=== PATIENT | female | born 1940 | race Caucasian/White ===

== ENCOUNTER → 2017-01-09 | Outpatient (CLI) | payer MEDICARE, BC ==
--- NOTE | 2017-01-09 11:06 | US ---
EXAMINATION TYPE: US thyroid st tissue head/neck DATE OF EXAM: 01/09/2017 10:23 AM COMPARISON: prior us in pacs CLINICAL HISTORY: E04.1 Thyroid Nodule. on thyroid meds x yrs GLAND SIZE: Right Lobe: 5.4 x 2.1 x 2.3 cm Overall Parenchyma: heterogenous Left Lobe: 2.8 x 1.1 x 0.9 cm Overall Parenchyma: homogeneous Isthmus Thickness: 0.7 cm NODULES RIGHT: # of nodules measured on right: 4 1. 0.8 x 0.5 x 0.7cm hypoechoic, solid nodule at the upper posterior pole with well defined margins . This nodule is wider than tall and shows no intranodular vascularity. Prior size: not measured on prior 2. 1.5 x 0.8 x 1.2cm hypoechoic solid nodule at the anterior mid to upper pole with well-defined ma rgins. This nodule is wider than tall and shows some intranodular vascularity. Prior size: 1.0 x 0.7 x 1.1 cm 3. 0.9 x 0.6 x 0.8 cm hypoechoic solid nodule at the mid anterior pole with well-defined margins. Th is nodule is wider than tall and shows no intranodular vascularity. Prior size: not measured on prior 4. 1.2 x 0.9 x 1.1 cm hypoechoic solid nodule at the lower pole with poorly defined margins. This no dule is wider than tall and shows some intranodular vascularity. Prior size: 1.1 x 0.7 x 0.8 cm LEFT: # of nodules measured on left: 0 ISTHMUS: # of nodules measured in the isthmus: 1 1. 0.6 X 0.5 x 0.7 cm hypoechoic solid nodule with a calcified wall at the left isthmus with well- defined margins. This nodule is wider than tall and shows no intranodular vascularity. Prior size: not measured on prior TECHNOLOGIST IMPRESSION: Bilateral neck scanned, no abnormal lymphadenopathy noted. Small left lobe , enlarged heterogeneous rt lobe with multiple nodules. There is redemonstration of slightly enlarged right thyroid lobe and small left thyroid lobe which raysa th remain heterogeneous with scattered nodules. Some nodules marked by technologist were not clearly seen on prior. No new greater than 1 cm solid or cystic nodules are noted. IMPRESSION: Heterogeneous thyroid with multiple nodules redemonstrated, larger nodules are stable in size and adelfo earance, no new greater than 1 cm suspicious solid or cystic nodules are seen.
== END | disposition home or self-care (01) ==
LOC: RADUSWWP 09:59
PROVIDERS: ATTEND Otolaryngology
DX: E04.2 Nontoxic multinodular goiter (principal)
CPT/HCPCS: 76536

== ENCOUNTER 2017-03-19 10:32 | Observation (INO) | payer MEDICARE, BC ==
[2017-03-19] MEDS ORDERED: SODIUM CHLORIDE 0.9% 1,000 ML IV STA (10:38)
[2017-03-19] MEDS ORDERED: SODIUM CHLORIDE 0.9% 500 ML IV STA (10:38)
--- NOTE | 2017-03-19 10:46 | ED ---
General Adult HPI - General Chief complaint: Chest Pain Stated complaint: Chest/Back Pain Time Seen by Provider: 03/19/17 10:37 Source: patient, RN notes reviewed, old records reviewed Mode of arrival: ambulatory Limitations: no limitations - History of Present Illness Initial comments: This is a 76-year-old female here with chest pain. Patient is chest pain. Significant history of lung cancer, chest came back pain have I cholesterol. Shortness of breath no nausea vomiting no fevers. No travel history or sick contacts. No history of DVT. No history of PE. Patient has huge history of multiple recent surgery - Related Data Home Medications Medication Instructions Recorded Confirmed Atorvastatin [Lipitor] 5 mg PO HS 10/18/14 03/19/17 Enalapril [Vasotec] 20 mg PO BID 10/18/14 03/19/17 Metoprolol Tartrate [Lopressor] 50 mg PO BID 10/18/14 03/19/17 Cholecalciferol [Vitamin D3] 2,000 unit PO DAILY 12/11/15 03/19/17 Levothyroxine Sodium [Synthroid] 50 mcg PO DAILY 12/11/15 03/19/17 fentaNYL 50MCG/HR PATCH [Duragesic 1 patch TRANSDERM Q3D 08/16/16 03/19/17 50MCG/HR] Allergies Allergy/AdvReac Type Severity Reaction Status Date / Time Iodinated Contrast Media - Allergy Severe Rash/Hives Verified 03/19/17 10:39 Oral and [Iodinated Contrast Media - IV Dye] iodine Allergy Rash/Hives Verified 03/19/17 10:39 pineapple Allergy Unknown Verified 03/19/17 10:39 shellfish derived Allergy Unknown Verified 03/19/17 10:39 Review of Systems ROS Statement: Those systems with pertinent positive or pertinent negative responses have been documented in the HPI. ROS Other: All systems not noted in ROS Statement are negative. Past Medical History Past Medical History: Cancer, Hyperlipidemia, Hypertension, Thyroid Disorder Additional Past Medical History / Comment(s): Breast Cancer History of Any Multi-Drug Resistant Organisms: None Reported Past Surgical History: Bariatric Surgery, Breast Surgery, Cholecystectomy, Hysterectomy Additional Past Surgical History / Comment(s): thyroid Past Anesthesia/Blood Transfusion Reactions: No Reported Reaction Past Psychological History: No Psychological Hx Reported Smoking Status: Former smoker Past Alcohol Use History: None Reported Past Drug Use History: None Reported - Past Family History Mother Family Medical History: No Reported History Sister(s) Additional Family Medical History / Comment(s): hip replacement General Exam Limitations: no limitations General appearance: alert, in no apparent distress Head exam: Present: atraumatic, normocephalic, normal inspection Eye exam: Present: normal appearance, PERRL, EOMI. Absent: scleral icterus, conjunctival injection, periorbital swelling ENT exam: Present: normal exam, mucous membranes moist Neck exam: Present: normal inspection. Absent: tenderness, meningismus, lymphadenopathy Respiratory exam: Present: normal lung sounds bilaterally. Absent: respiratory distress, wheezes, rales, rhonchi, stridor Cardiovascular Exam: Present: regular rate, normal rhythm, normal heart sounds. Absent: systolic murmur, diastolic murmur, rubs, gallop, clicks GI/Abdominal exam: Present: soft, normal bowel sounds. Absent: distended, tenderness, guarding, rebound, rigid Extremities exam: Present: normal inspection, full ROM, normal capillary refill. Absent: tenderness, pedal edema, joint swelling, calf tenderness Back exam: Present: normal inspection Neurological exam: Present: alert, oriented X3, CN II-XII intact Psychiatric exam: Present: normal affect, normal mood Skin exam: Present: warm, dry, intact, normal color. Absent: rash Course Vital Signs 03/19/17 10:35 Temperature 98.1 F Pulse Rate 65 Respiratory 18 Rate Blood Pressure 216/83 O2 Sat by Pulse 98 Oximetry - Reevaluation(s) Reevaluation #1: 03/19/17 14:00 At this point patient remains positive chest pain EKG Findings - EKG Comments: EKG Findings:: EKG shows sinus bradycardia rate of 58, ID 190, QRS 06, QTC 404 Medical Decision Making - Medical Decision Making Surgeries female here for evaluation of chest pain. Patient still remains of anterior chest pain and not feeling well. Patient will be admitted for cardiac observation, initial troponin EKG and CTA of chest negative for acute disease, patient's chest pain was central and radiating to back - Lab Data Result diagrams: 03/19/17 11:20 03/19/17 11:20 Lab Results 03/19/17 03/19/17 03/19/17 Range/Units 11:20 11:20 11:20 WBC 7.3 (3.8-10.6) k/uL RBC 4.54 (3.80-5.40) m/uL Hgb 13.6 (11.4-16.0) gm/dL Hct 39.6 (34.0-46.0) % MCV 87.2 (80.0-100.0) fL MCH 29.9 (25.0-35.0) pg MCHC 34.3 (31.0-37.0) g/dL RDW 12.3 (11.5-15.5) % Plt Count 222 (150-450) k/uL Neutrophils % 64 % Lymphocytes % 24 % Monocytes % 7 % Eosinophils % 2 % Basophils % 0 % Neutrophils # 4.7 (1.3-7.7) k/uL Lymphocytes # 1.8 (1.0-4.8) k/uL Monocytes # 0.5 (0-1.0) k/uL Eosinophils # 0.1 (0-0.7) k/uL Basophils # 0.0 (0-0.2) k/uL PT (9.0-12.0) sec INR (<1.1) APTT (22.0-30.0) sec D-Dimer (<0.60) mg/L FEU Sodium 140 (137-145) mmol/L Potassium 4.6 (3.5-5.1) mmol/L Chloride 103 (98-107) mmol/L Carbon Dioxide 27 (22-30) mmol/L Anion Gap 10 mmol/L BUN 16 (7-17) mg/dL Creatinine 0.60 (0.52-1.04) mg/dL Est GFR (MDRD) Af Amer >60 (>60 ml/min/1.73 sqM) Est GFR (MDRD) Non-Af >60 (>60 ml/min/1.73 sqM) Glucose 123 H (74-99) mg/dL Calcium 9.5 (8.4-10.2) mg/dL Magnesium 2.0 (1.6-2.3) mg/dL Total Bilirubin 0.6 (0.2-1.3) mg/dL AST 27 (14-36) U/L ALT 32 (9-52) U/L Alkaline Phosphatase 49 (38-126) U/L Total Creatine Kinase 67 (30-135) U/L CK-MB (CK-2) 0.6 (0.0-2.4) ng/mL CK-MB (CK-2) Rel Index 0.9 Troponin I <0.012 (0.000-0.034) ng/mL Total Protein 8.0 (6.3-8.2) g/dL Albumin 4.7 (3.5-5.0) g/dL Lipase 108 (23-300) U/L 03/19/17 Range/Units 11:20 WBC (3.8-10.6) k/uL RBC (3.80-5.40) m/uL Hgb (11.4-16.0) gm/dL Hct (34.0-46.0) % MCV (80.0-100.0) fL MCH (25.0-35.0) pg MCHC (31.0-37.0) g/dL RDW (11.5-15.5) % Plt Count (150-450) k/uL Neutrophils % % Lymphocytes % % Monocytes % % Eosinophils % % Basophils % % Neutrophils # (1.3-7.7) k/uL Lymphocytes # (1.0-4.8) k/uL Monocytes # (0-1.0) k/uL Eosinophils # (0-0.7) k/uL Basophils # (0-0.2) k/uL PT 10.5 (9.0-12.0) sec INR 1.0 (<1.1) APTT 21.8 L (22.0-30.0) sec D-Dimer 0.52 (<0.60) mg/L FEU Sodium (137-145) mmol/L Potassium (3.5-5.1) mmol/L Chloride (98-107) mmol/L Carbon Dioxide (22-30) mmol/L Anion Gap mmol/L BUN (7-17) mg/dL Creatinine (0.52-1.04) mg/dL Est GFR (MDRD) Af Amer (>60 ml/min/1.73 sqM) Est GFR (MDRD) Non-Af (>60 ml/min/1.73 sqM) Glucose (74-99) mg/dL Calcium (8.4-10.2) mg/dL Magnesium (1.6-2.3) mg/dL Total Bilirubin (0.2-1.3) mg/dL AST (14-36) U/L ALT (9-52) U/L Alkaline Phosphatase (38-126) U/L Total Creatine Kinase (30-135) U/L CK-MB (CK-2) (0.0-2.4) ng/mL CK-MB (CK-2) Rel Index Troponin I (0.000-0.034) ng/mL Total Protein (6.3-8.2) g/dL Albumin (3.5-5.0) g/dL Lipase (23-300) U/L - Radiology Data Radiology results: report reviewed (Chest x-ray negative for acute disease, CT negative for PE), image reviewed Critical Care Time Critical Care Time: Yes Total Critical Care Time: 31 Disposition Clinical Impression: Unstable angina pectoris, Chest pain Disposition: ADMITTED IP TO THIS [facility] Condition: Fair Instructions: Chest Pain (ED) Referrals: Scott Jerry DO [Primary Care Provider] - 1-2 days
[2017-03-19 11:32] LABS: Basophils % (A) 0 %; CH 30.7; CHCM 35.3; Eosinophils # (A) 0.1 k/uL (0-0.7); Eosinophils % (A) 2 %; HCT 39.6 % (34.0-46.0); HGB 13.6 gm/dL (11.4-16.0); Luc # (Auto) 0.14; Luc % (Auto) 2; Lymphocytes # (A) 1.8 k/uL (1.0-4.8); Lymphocytes % (A) 24 %; MCH 29.9 pg (25.0-35.0); MCHC 34.3 g/dL (31.0-37.0); MCV 87.2 fL (80.0-100.0); Mean Platelet Volume 6.7; Monocytes # (A) 0.5 k/uL (0-1.0); Monocytes % (A) 7 %; Neutrophils # (A) 4.7 k/uL (1.3-7.7); Neutrophils % (A) 64 %; RBC 4.54 m/uL (3.80-5.40); RDW 12.3 % (11.5-15.5); WBC 7.3 k/uL (3.8-10.6); WBC (Perox) 7.43
[2017-03-19 11:46] LABS: ALT 32 U/L (9-52); AST 27 U/L (14-36); Alkaline Phosphatase 49 U/L (38-126); Anion Gap 10 mmol/L; Blood Urea Nitrogen 16 mg/dL (7-17); Calcium 9.5 mg/dL (8.4-10.2); Carbon Dioxide 27 mmol/L (22-30); Chloride 103 mmol/L (98-107); Glucose 123 mg/dL (74-99); Non-African American GFR(MDRD) >60 (>60 ml/min/1.73 sqM); Potassium 4.6 mmol/L (3.5-5.1); Sodium 140 mmol/L (137-145); Total Bilirubin 0.6 mg/dL (0.2-1.3)
--- NOTE | 2017-03-19 11:47 | XR ---
EXAMINATION TYPE: XR chest 2V DATE OF EXAM: 03/19/2017 11:43 AM COMPARISON: Prior chest x-ray and CTA chest December 11, 2015. HISTORY: Chest pain today. TECHNIQUE: Frontal and lateral views of the chest are obtained. FINDINGS: There is no focal air space opacity, pleural effusion, or pneumothorax seen. The cardiac silhouette size remains enlarged. The osseous structures are somewhat demineralized. IMPRESSION: Cardiomegaly without acute pulmonary process.
[2017-03-19 11:58] LABS: Creatine Kinase 67 U/L (30-135)
[2017-03-19 12:05] LABS: Prothrombin Time 10.5 sec (9.0-12.0)
[2017-03-19 12:11] LABS: Creatine Kinase MB 0.6 ng/mL (0.0-2.4); Troponin I <0.012 ng/mL (0.000-0.034)
[2017-03-19 12:20] LABS: Partial Thromboplastin Time 21.8 sec (22.0-30.0)
[2017-03-19] MEDS ORDERED: RX INFO: IV CONTRAST WAS GIVEN 1 EACH MISC MISCELLANE PRN (12:31)
[2017-03-19] MEDS ORDERED: methylPREDNISolone SOD SUCCI 125 MG/2 ML VIAL IV STA (12:38)
[2017-03-19] MEDS ORDERED: diphenhydrAMINE 50 MG/ML 1 ML VIAL IVP STA (12:38)
[2017-03-19] MEDS ORDERED: FAMOTIDINE 20 MG/2 ML VIAL IV STA (12:38)
--- NOTE | 2017-03-19 13:38 | CT ---
EXAMINATION TYPE: CT angio chest DATE OF EXAM: 03/19/2017 1:19 PM COMPARISON: CTA chest December 11, 2015 HISTORY: Chest pain rule out pulmonary embolism CT DLP: 535 mGycm. Automated Exposure Control for Dose Reduction was Utilized. CONTRAST: CTA scan of the thorax is performed with IV Contrast, patient injected with 71 mL of Omnipaque 350, p ulmonary embolism protocol. MIP Images are created on CT scanner and reviewed. FINDINGS: LUNGS: Dependent atelectatic change in bilateral lower lobes is present. There is no concerning nonca lcified parenchymal nodule or mass identified bilaterally. No pleural effusion or pneumothorax is see n. There is 3 mm calcified nodule in right lung base on axial image 87 redemonstrated. MEDIASTINUM: There is suboptimal bolus with equal contrast in right and left heart systems but no con vincing CT evidence for pulmonary embolism. There are no greater than 1 cm noncalcified hilar or med iastinal lymph nodes. There are prominent but calcified right infrahilar lymph nodes redemonstrated. No significand pericardial effusion is seen. Cardiomegaly is redemonstrated. Heterogeneous slightly prominent thyroid isthmus is redemonstrated and stable. Thyroid has been sampled in past. OTHER: Cholecystectomy clips are again seen. The visualized liver is hypodense suggesting fatty infil tration. Some multilevel spurring in thoracic spine is present. IMPRESSION: No CT evidence for pulmonary embolism. No suspicious acute pulmonary process. Evidence of old granulomatous disease. No significant change from prior.
[2017-03-19] MEDS ORDERED: HEPARIN SODIUM,PORCINE 5,000 UNIT/ML 1 ML VIAL IV PRN (13:58)
[2017-03-19] MEDS ORDERED: NITROGLYCERIN SL TABS 0.4 MG TAB SUBLINGUAL PRN (13:58)
[2017-03-19] MEDS ORDERED: HEPARIN SODIUM,PORCINE 5,000 UNIT/ML 1 ML VIAL IV ONE (13:58)
[2017-03-19] MEDS ORDERED: ASPIRIN 81 MG CHEW PO STA (13:58)
[2017-03-19] MEDS ORDERED: SODIUM CHLORIDE 0.9% 1,000 ML IV SCH (14:00)
[2017-03-19] MEDS ORDERED: HEPARIN SODIUM,PORCINE/D5W PMX 25,000 UNIT in DEXTROSE/WATER 1 500ML.BAG IV SCH (14:00)
[2017-03-19] MEDS ORDERED: ACETAMINOPHEN TAB 500 MG TAB PO PRN (16:16)
[2017-03-19] MEDS: LEVOTHYROXINE 50 MCG TAB PO SCH (18:10)
[2017-03-19] MEDS: LISINOPRIL 20 MG TAB PO SCH (18:13)
[2017-03-19] MEDS: METOPROLOL TARTRATE 50 MG TAB PO SCH (18:13)
[2017-03-19 19:19] LABS: Creatine Kinase 60 U/L (30-135)
[2017-03-19 19:33] LABS: Creatine Kinase MB 0.7 ng/mL (0.0-2.4); Troponin I <0.012 ng/mL (0.000-0.034)
[2017-03-19 19:51] VITALS: RESP 16
[2017-03-19 21:38] LABS: Creatine Kinase 60 U/L (30-135)
[2017-03-19 21:51] LABS: Creatine Kinase MB 0.6 ng/mL (0.0-2.4); Troponin I <0.012 ng/mL (0.000-0.034)
[2017-03-20] MEDS: LEVOTHYROXINE 50 MCG TAB PO SCH (06:55)
[2017-03-20] MEDS ORDERED: REGADENOSON 0.4 MG/5 ML SYRINGE IV ONE (08:34)
[2017-03-20] MEDS ORDERED: AMINOPHYLLINE 500 MG/20 ML VIAL IV PRN (08:34)
--- NOTE | 2017-03-20 08:34 | P.CRDCN ---
History of Present Illness Consult date: 03/20/17 History of present illness: This is a 76-year-old female with history of hypertension, hypercholesterolemia and history of previous breast cancer and also thyroid cancer, who is admitted to the hospital with complaints of recurrent chest pains since yesterday. She claims the pains are in the middle of the chest radiating up and down the chest and epigastrium. She denied any acid reflux. There doesn't seem to be any clear-cut relation to exertion. No nausea vomiting or sweating. She did complain of some low back pain. Her EKGs are normal. Her cardiac enzymes are normal. She had a stress test about 5 years ago, which was normal at the time. She had a computed tomography scan of the chest which did not reveal any pulmonary emboli. There does appear to be calcium in the coronary system, especially in the LAD distribution in the midportion. She is given the option of having a cardiac catheterization or a stress test for definitive diagnosis. Patient preferred to have a nuclear stress test. Patient has arthritis and cannot walk. She is going to have a Lexiscan Cardiolite. Review of Systems REVIEW OF SYSTEMS: CONSTITUTIONAL:. Patient is doing well. No complaints of fever or chills EYES: Denies diplopia, blurring of vision EARS, NOSE, MOUTH, THROAT: Denies headaches, denies sore throat. CARDIOVASCULAR: As per HPI RESPIRATORY: Denies shortness of breath, denies cough. GASTROINTESTINAL: Denies change in appetite, denies abdominal pain, denies diarrhea GENITOURINARY: Denies hematuria, denies infections. MUSKULOSKELETAL: Denies pain, denies swelling. Denies any cramps or claudication INTEGUMENTARY: Denies rash, denies eczema. NEUROLOGICAL: Denies focal weakness, or visual disturbance. Denies any dizziness or syncope PSYCHIATRIC: Denies anxiety, denies depression. HEMATOLOGIC/LYMPHATIC: Denies any bleeding, denies enlarged lymph nodes. Patient has history of thyroid cancer and also breast cancer. 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 History of Any Multi-Drug Resistant Organisms: None Reported Past Surgical History: Breast Surgery, Cholecystectomy, Hysterectomy Additional Past Surgical History / Comment(s): Partial thyroidectomy, colonoscopies with benign polypectomy, EGD, 1/2 gastrectomy due to ulcers, L breast mastectomy. Past Anesthesia/Blood Transfusion Reactions: No Reported Reaction Past Psychological History: No Psychological Hx Reported Additional Psychological History / Comment(s): Pt resides alone in a condo. She uses a walker at times. She drives. She is independent. Smoking Status: Former smoker Past Alcohol Use History: None Reported Additional Past Alcohol Use History / Comment(s): Pt smoked from [id number] Past Drug Use History: None Reported - Past Family History Father History Unknown: Yes Additional Family Medical History / Comment(s): Father when pt was 1 yrs old. Mother Family Medical History: Coronary Artery Disease (CAD), Osteoarthritis (OA), Thyroid Disorder Additional Family Medical History / Comment(s): Enlarged heart. Sister(s) Family Medical History: Cancer Additional Family Medical History / Comment(s): Pt had a sister who of breast cancer. Medications and Allergies Home Medications Medication Instructions Recorded Confirmed Type Atorvastatin [Lipitor] 5 mg PO HS 10/18/14 03/19/17 History Enalapril [Vasotec] 20 mg PO BID 10/18/14 03/19/17 History Metoprolol Tartrate [Lopressor] 50 mg PO BID 10/18/14 03/19/17 History Cholecalciferol [Vitamin D3] 2,000 unit PO DAILY 12/11/15 03/19/17 History Levothyroxine Sodium [Synthroid] 50 mcg PO DAILY 12/11/15 03/19/17 History fentaNYL 50MCG/HR PATCH [Duragesic 1 patch TRANSDERM Q3D 08/16/16 03/19/17 History 50MCG/HR] Allergies Allergy/AdvReac Type Severity Reaction Status Date / Time Iodinated Contrast Media - Allergy Severe Rash/Hives Verified 03/19/17 10:39 Oral and [Iodinated Contrast Media - IV Dye] iodine Allergy Rash/Hives Verified 03/19/17 10:39 pineapple Allergy Unknown Verified 03/19/17 10:39 shellfish derived Allergy Unknown Verified 03/19/17 10:39 Physical Exam Vitals: Vital Signs Temp Pulse Pulse Resp BP BP Pulse Ox 03/20/17 04:00 97.7 F 71 16 173/73 97 03/20/17 03:59 67 16 03/19/17 23:56 98.1 F 80 16 175/75 96 03/19/17 23:16 78 16 03/19/17 20:00 78 16 03/19/17 19:51 98.2 F 79 16 164/70 92 L 03/19/17 16:14 167/72 03/19/17 16:00 18 03/19/17 15:08 98.2 F 67 16 202/85 96 03/19/17 14:35 16 03/19/17 14:17 98.1 F 68 18 177/74 97 Intake and Output 03/19/17 03/20/17 03/20/17 22:59 06:59 14:59 Intake Total 358.09 Balance 358.09 Intake: Intake, IV Titration 358.09 Amount Heparin Sodium,Porcine/ 358.09 D5w Pmx 25,000 unit In Dextrose/Water 1 500ml. bag @ 10 UNITS/KG/HR 19. 95 mls/hr IV .Q24H [facility] Rx #:[id number] Other: # Voids 2 2 GENERAL EXAM: Patient is alert and oriented and doesn't appear to be in any acute distress HEENT: Normocephalic. Normal reaction of pupils, equal size, normal range of extraocular motion. No erythema or exudates in the throat. NECK: No masses, no nuchal rigidity. CHEST: No chest wall deformity. LUNGS: Equal air entry with no crackles or wheeze. HEART: S1 and S2 normal with no audible mumurs or gallops. Regular rhythm, femorals equal on both sides.. ABDOMEN: No hepatosplenomegaly, normal bowel sounds, no guarding or rigidity. SKIN: No rashes CENTRAL NERVOUS SYSTEM: No focal deficits. EXTREMITIES: No cyanosis, clubbing or edema. Results 03/20/17 05:38 03/19/17 11:20 Cardiac Enzymes 03/19/17 03/19/17 Range/Units 18:00 20:58 CK-MB (CK-2) 0.7 0.6 (0.0-2.4) ng/mL Troponin I <0.012 <0.012 (0.000-0.034) ng/mL Coagulation 03/19/17 03/20/17 Range/Units 22:31 05:38 APTT 42.8 H >200.0 H* (22.0-30.0) sec Lipids 03/20/17 Range/Units 05:38 Triglycerides 57 (<150) mg/dL Cholesterol 116 (<200) mg/dL HDL Cholesterol 41 (40-60) mg/dL CBC 03/20/17 Range/Units 05:38 Plt Count 168 (150-450) k/uL Current Medications Generic Name Dose Route Start Last Admin Trade Name Freq PRN Reason Stop Dose Admin Acetaminophen 1,000 mg 03/19/17 16:16 03/19/17 16:42 Tylenol Tab PO 1,000 mg Q6HR PRN Administration Fever and/ or mild Pain Aspirin 325 mg 03/20/17 09:00 Aspirin PO DAILY [facility] Atorvastatin Calcium 80 mg 03/20/17 09:00 Lipitor PO DAILY [facility] Fentanyl 1 patch 03/20/17 09:00 Duragesic 50mcg/Hr Patch TRANSDERM Q3D [facility] Heparin Sodium (Porcine) 0 unit 03/19/17 13:58 Heparin IV Q6HR PRN Low PTT Protocol Heparin Sodium/Dextrose 25,000 500 mls @ 19.95 mls/hr 03/19/17 14:00 06:51 unit/ IV Solution IV 0 units/kg/hr .Q24H [facility] 0 mls/hr Protocol Titration 10 UNITS/KG/HR Sodium Chloride 1,000 mls @ 100 mls/hr 03/19/17 14:00 03/19/17 16:44 Saline 0.9% IV Not Given .Q10H [facility] Levothyroxine Sodium 50 mcg 03/19/17 17:15 03/20/17 06:55 Synthroid PO Not Given DAILY@0630 [facility] Lisinopril 40 mg 03/19/17 21:00 03/19/17 18:13 Zestril PO 40 mg BID [facility] Administration Metoprolol Tartrate 50 mg 03/19/17 21:00 03/19/17 18:13 Lopressor PO 50 mg BID [facility] Administration Miscellaneous Information 1 each 03/19/17 12:31 03/19/17 12:42 Rx Info: Iv Contrast Was Given MISCELLANE 03/21/17 12:31 1 each DAILY PRN Administration Per Protocol Nitroglycerin 0.4 mg 03/19/17 13:58 Nitrostat SUBLINGUAL Q5M PRN Chest Pain Intake and Output 03/19/17 03/20/17 03/20/17 22:59 06:59 14:59 Intake Total 358.09 Balance 358.09 Intake: Intake, IV Titration 358.09 Amount Heparin Sodium,Porcine/ 358.09 D5w Pmx 25,000 unit In Dextrose/Water 1 500ml. bag @ 10 UNITS/KG/HR 19. 95 mls/hr IV .Q24H [facility] Rx #:[id number] Other: # Voids 2 2 03/20/17 05:38 EKG Interpretations (text) Sinus rhythm Assessment and Plan (1) Hypertension Status: Acute (2) Chest pain Status: Acute (3) Hypercholesterolemia Status: Acute (4) History of breast cancer Status: Acute (5) History of thyroid cancer Status: Acute Plan: This patient had chest pain with some atypical features. EKGs and cardiac enzymes are negative. Computed tomography scan of the chest did not reveal any pulmonary emboli. There is some calcification noted in LAD distribution. Patient is given the choice of cardiac cath versus nuclear stress test. Patient preferred to have nuclear stress test. Lexiscan Cardilate is being scheduled along with echocardiogram. Further recommendations depend upon the findings on the tests.
[2017-03-20] MEDS ORDERED: ATORVASTATIN 80 MG TAB PO SCH (09:00)
[2017-03-20] MEDS ORDERED: ASPIRIN 325 MG TAB PO SCH (09:00)
--- NOTE | 2017-03-20 09:32 | HP ---
DATE OF ADMISSION: 03/19/2017 PRESENTING COMPLAINT: Chest pain. History of presenting complaint: This is a pleasant 76-year-old patient of Dr. Scott Rice. Patient's chronic stable medical conditions include hypercholesterolemia, hypertension, hypothyroidism. Patient presents with 2 weeks of chest pressure going across her chest, does have episodes of perspiration the same. No more shortness of breath. No dizziness. Feels weak, tired, and rundown all the time. Wants to be in bed. Has very little energy. Patient came in occasionally with diagnosis of unstable angina. Last stress test was 7 years ago. REVIEW OF SYSTEMS: CONSTITUTIONAL: Weak, tired. HEENT: None. RESPIRATORY: None. CARDIOVASCULAR: As above. GASTROINTESTINAL: None. GENITOURINARY: None. MUSCULOSKELETAL: Aches and pains in the joints. Dermatological: None. HEMATOLOGICAL: None. LYMPHATICS: None. PSYCHIATRY: None. NEUROLOGICAL: None. PAST MEDICAL HISTORY: Hyperlipidemia, hypertension, osteoarthritis, hyperthyroid, left breast cancer, mastectomy, peptic ulcer disease, thyroid cancer with partial thyroidectomy, arthritis in the knees, low back pain, nodule in the vocal cord, osteoporosis. PAST SURGICAL HISTORY: Breast surgery, cholecystectomy, hysterectomy, partial thyroidectomy, partial gastrectomy from ulcers, left mastectomy. SOCIAL HISTORY: Patient smoked for 10 years up until 1986. No alcohol. FAMILY HISTORY: Coronary artery disease, osteoarthritis. HOME MEDICATIONS: 1. Fentanyl 50 mcg patch every 3 days. 2. Lopressor 50 mg b.i.d. 3. Synthroid 50 mcg a day. 4. Vasotec 20 mg p.o. b.i.d. 5. Vitamin D3, 2000 units p.o. daily. 6. Lipitor 20 mg q.h.s. ALLERGIES TO IV CONTRAST DYE, ( ) SHELLFISH. On examination, temperature 98.2, pulse 79, respirations 16, blood pressure 150/70, pulse ox 92% on room air. GENERAL APPEARANCE: Well built, BMI 34.5, lying in bed, tired -appearing. EYES: Pupils equal. Conjunctivae normal. HEENT: External appearance of nose and ears normal. Oral cavity normal. NECK: JVD not raised. Mass not palpable. RESPIRATORY: Effort normal. Lungs are clear. CARDIOVASCULAR: First and second sounds normal. No edema. ABDOMEN: Soft, nontender. Liver and spleen not palpable. LYMPHATIC: No lymph nodes palpable in neck or axillae. PSYCHIATRY: Alert and oriented x3. Mood and affect ( ) appearing. NEUROLOGICAL: Pupils equal. Cranial nerves grossly intact. Power and sensation grossly intact. MUSCULOSKELETAL: Evidence of osteoarthritis of multiple joints in the hands and knees. INVESTIGATIONS: White count 10.3, hemoglobin 10.6. Potassium 4.6. BUN and creatinine are normal. Troponin x2 negative. Patient's LDL in November of this year was 103. EKG shows normal sinus rhythm. Heart rate of 58. ASSESSMENT: 1. Unstable angina sounds like on presentation in a patient with risk factors include her age, obesity, hypertension. Patient did have a 2-D echocardiogram in November of this year that showed EF 60-65%. 2. Hypothyroidism. Check if the patient ( ) replaced some of the symptoms could manifest the same. 3. Hyperlipidemia. 4. Essential hypertension, uncontrolled. 5. History of left mastectomy. 6. Primary osteoarthritis multiple joints, including the knees. 7. Obesity; body mass index of 34.1. PLAN: Patient is put on IV heparin, aspirin, Lopressor. Cardiology is consulted. Patient will need a stress test or cardiac catheterization given her presentation. Will also check patient's thyroid status. Care was discussed with the patient in detail. Copy to Dr. Rice.
--- NOTE | 2017-03-20 10:40 | ECHOF ---
Referral Reason:Chest pain and cardiomyopathy MEASUREMENTS -------- HEIGHT: 170.2 cm WEIGHT: 99.8 kg BP: 173/73 RVIDd: 3.5 cm (< 3.3) IVSd: 1.4 cm (0.6 - 1.1) LVIDd: 4.9 cm (3.9 - 5.3) LVPWd: 1.4 cm (0.6 - 1.1) IVSs: 1.8 cm LVIDs: 3.2 cm LVPWs: 1.7 cm LAESV Index (A-L): 17.36 ml/m Ao Diam: 3.2 cm (2.0 - 3.7) AV Cusp: 1.1 cm (1.5 - 2.6) LA Diam: 3.7 cm (2.7 - 3.8) MV E Kennedy: 0.58 m/s MV DecT: 157 ms MV A Kennedy: 0.69 m/s MV E/A Ratio: 0.84 AV maxP.32 mmHg AV meanP.54 mmHg RAP: 5.00 mmHg RVSP: 14.16 mmHg FINDINGS -------- Sinus rhythm. This was a technically adequate study. LV size, wall thickness and systolic function are normal, with an EF greater than 55%. The right ventricle is mildly enlarged. Normal LA size by volume 22+/-6 ml/m2. The right atrium is normal in size. There is mild aortic valve sclerosis. There is trace mitral regurgitation. Trace tricuspid regurgitation present. There is no evidence of pulmonary hypertension. The right ventricular systolic pressure, as measured by Doppler, is 14.16mmHg. Trace/mild (physiologic) pulmonic regurgitation. The aortic root, ascending aorta and aortic arch are normal. There is no pericardial effusion. CONCLUSIONS -------- 1. Sinus rhythm. 2. There is no pericardial effusion. 3. This was a technically adequate study. 4. LV size, wall thickness and systolic function are normal, with an EF greater than 55%. 5. The right ventricle is mildly enlarged. 6. There is mild aortic valve sclerosis. 7. There is trace mitral regurgitation. 8. Trace tricuspid regurgitation present. 9. The right ventricular systolic pressure, as measured by Doppler, is 14.16mmHg. 10. Trace/mild (physiologic) pulmonic regurgitation. GRE TUTOR: Claudia Palma RDCS
[2017-03-20] MEDS: LISINOPRIL 20 MG TAB PO SCH (11:14)
[2017-03-20] MEDS: METOPROLOL TARTRATE 50 MG TAB PO SCH (11:14)
--- NOTE | 2017-03-20 11:15 | EST ---
DATE OF SERVICE: 03/20/2017 AGE: 76Y SEX: F HT: 5'7" WT: 220 lbs. Lexiscan Cardiolite Stress Test *Heart Rate Blood Pressure *Rest: 79 Rest: 193/94 * *Max. Achieved: 100 Maximum BP: 211/81 85% PMHR: - 100% PMHR: - *METS: - INDICATIONS: Chest pain. MEDICATIONS: - CLINICAL INFORMATION: History of chest pain, hypertension, hypercholesterolemia, history of smoking 1/2 pack of cigarettes a day for 10 years. Quit smoking 30 years ago. Resting ECG shows sinus rhythm, rate of 79 beats per minute, NM interval of 0.16, QRS 0.08, nonspecific ST-T wave changes. Utilizing a standard Lexiscan protocol, Lexiscan was given followed by serial EKGs without any chest pain or pressure or ST segment deviations indicative of ischemia in any of the monitoring 12 leads. IMPRESSION: 1. Baseline rhythm is sinus with normal NM interval, normal QRS, with nonspecific ST-T wave changes. 2. Negative Lexiscan Cardiolite study. 3. Nuclear scintigrams to follow from Radiology Department.
--- NOTE | 2017-03-20 11:18 | NM ---
EXAMINATION TYPE: NM stress lexiscan cardiolite DATE OF EXAM: 03/20/2017 11:12 AM COMPARISON: NONE HISTORY: Chest pain TECHNIQUE: After the intravenous administration of 10.25 mCi Tc 99m Sestamibi - Cardiolite resting S PECT images acquired 45 minutes post injection. The patient received 0.4mg Lexiscan, 27.4 mCi Tc 99m Sestamibi - Stress images obtained [address] injection FINDINGS: Review of stress and rest SPECT images demonstrates no distinct perfusion abnormality. Fixed decreas ed perfusion inferior wall may reflect attenuation artifact versus remote insult. Gated analysis alfa ws normal wall motion with an estimated left ventricular ejection fraction of 69 %. IMPRESSION: No scintigraphic evidence for reversible ischemia.
[2017-03-20] MEDS ORDERED: LEVOTHYROXINE 50 MCG TAB PO SCH ×2 (11:30→12:00)
[2017-03-20 12:32] VITALS: BP 152/65; PULSE 80; TEMP 98.4
--- NOTE | 2017-03-21 08:06 | DS ---
DATE OF ADMISSION: 03/19/2017 DATE OF DISCHARGE: 03/20/2017 FINAL DIAGNOSES: 1. Anterior chest wall pain; could be musculoskeletal. 2. Hypothyroidism. 3. Hyperlipidemia. 4. Essential hypertension. 5. History of left mastectomy. 6. Primary osteoarthritis of multiple joints including the knees. 7. Obesity; body mass index of 34.1. HOSPITAL COURSE: This patient presented with chest pain. Troponins were negative. Patient underwent nuclear stress test that was negative. A 2-D echocardiogram showed preserved LV function, no wall motion abnormality Care was discussed with the patient. On exam, lungs are clear. CARDIOVASCULAR: First and second sounds normal. DISCHARGE MEDICATIONS: 1. Vasotec 20 mg b.i.d. 2. Lopressor 50 mg p.o. b.i.d. 3. Vitamin D3, 2000 units p.o. daily. 4. Synthroid 50 mcg p.o. daily. 5. Duragesic 50 mcg patch every 3 days. 6. Aspirin 81 mg daily. 7. Lipitor 40 mg at bedtime. 8. Nitrostat 0.4 sublingual every 5 p.r.n. Follow up with Dr. Scott Rice in 3 days
== END 2017-03-20 15:50 | disposition home or self-care (01) ==
LOC: EC 10:32 → 3OBS 13:58
PROVIDERS: ADMIT Hospitalist; ATTEND Hospitalist
DX: R07.89 Other chest pain (principal); M13.0 Polyarthritis, unspecified; E03.9 Hypothyroidism, unspecified; E66.9 Obesity, unspecified; Z68.34 Body mass index [BMI] 34.0-34.9, adult; E78.00 Pure hypercholesterolemia, unspecified; E78.5 Hyperlipidemia, unspecified; I10 Essential (primary) hypertension; M81.0 Age-related osteoporosis without current pathological fracture; Z79.899 Other long term (current) drug therapy; Z87.891 Personal history of nicotine dependence; Z90.3 Acquired absence of stomach [part of]; Z90.12 Acquired absence of left breast and nipple; Z85.118 Personal history of other malignant neoplasm of bronchus and lung; Z91.041 Radiographic dye allergy status; Z85.850 Personal history of malignant neoplasm of thyroid; M54.5 Low back pain; Z85.3 Personal history of malignant neoplasm of breast; R53.1 Weakness; Z82.49 Family history of ischemic heart disease and other diseases of the circulatory system
CPT/HCPCS: 96361 ×4; 96375 ×5; 96374 ×2; 99291 ×2; 96366 ×2; 96365; 36415; 93005; 93017; 93306; 85379; 84439; 80061; 80053; 84443; 82550; 82553; 83690; 83735; 84484; 85025; 85049; 85610; 85730 ×2; 71020; 71275; 78452; G0378 ×2; A9500; J1200; J1644 ×2; J2930; Q9967; J2785

== ENCOUNTER 2017-05-06 10:02 | Emergency (ER) | payer MEDICARE, BC ==
[2017-05-06 10:11] VITALS: BP 170/67; PULSE 66; RESP 20; TEMP 98.1
--- NOTE | 2017-05-06 11:23 | ED ---
General Adult HPI - General Chief complaint: Extremity Problem,Nontraumatic Stated complaint: Shoulder Pain, Nausea Time Seen by Provider: 05/06/17 10:32 Source: patient, RN notes reviewed, old records reviewed Mode of arrival: ambulatory Limitations: no limitations - History of Present Illness Initial comments: This is a 76-year-old female here for evaluation of right shoulder pain. Patient states pain on and off for about a month. Also increasing over the past week, she has had prior evaluation, no that she has right shoulder palpation without pain control at home. Patient denies rest of breath or chest pain, denies history of DVT. No travel history. No fevers cough or congestion. No traumatic injury - Related Data Home Medications Medication Instructions Recorded Confirmed Enalapril [Vasotec] 20 mg PO BID 10/18/14 05/16/17 Metoprolol Tartrate [Lopressor] 50 mg PO BID 10/18/14 05/16/17 Cholecalciferol [Vitamin D3] 2,000 unit PO DAILY 12/11/15 05/16/17 Levothyroxine Sodium [Synthroid] 50 mcg PO DAILY 12/11/15 05/16/17 fentaNYL 50MCG/HR PATCH [Duragesic 1 patch TRANSDERM Q3D 08/16/16 05/16/17 50MCG/HR] Atorvastatin Calcium [Lipitor] 5 mg PO DAILY 05/06/17 05/16/17 Allergies Allergy/AdvReac Type Severity Reaction Status Date / Time Iodinated Contrast Media - Allergy Severe Rash/Hives Verified 05/16/17 09:58 Oral and [Iodinated Contrast Media - IV Dye] iodine Allergy Rash/Hives Verified 05/16/17 09:58 pineapple Allergy SORE IN Verified 05/16/17 09:58 MOUTH shellfish derived Allergy SEVERE Verified 05/16/17 09:58 VOMITING Review of Systems ROS Statement: Those systems with pertinent positive or pertinent negative responses have been documented in the HPI. ROS Other: All systems not noted in ROS Statement are negative. 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 History of Any Multi-Drug Resistant Organisms: None Reported Past Surgical History: Breast Surgery, Cholecystectomy, Hysterectomy Additional Past Surgical History / Comment(s): Partial thyroidectomy, colonoscopies with benign polypectomy, EGD, 1/2 gastrectomy due to ulcers, L breast mastectomy. Past Anesthesia/Blood Transfusion Reactions: No Reported Reaction Past Psychological History: No Psychological Hx Reported Additional Psychological History / Comment(s): Pt resides alone in a condo. She uses a walker at times. She drives. She is independent. Smoking Status: Former smoker Past Alcohol Use History: None Reported Additional Past Alcohol Use History / Comment(s): Pt smoked from [id number] Past Drug Use History: None Reported - Past Family History Father History Unknown: Yes Additional Family Medical History / Comment(s): Father when pt was 1 yrs old. Mother Family Medical History: Coronary Artery Disease (CAD), Osteoarthritis (OA), Thyroid Disorder Additional Family Medical History / Comment(s): Enlarged heart. Sister(s) Family Medical History: Cancer Additional Family Medical History / Comment(s): Pt had a sister who of breast cancer. General Exam Limitations: no limitations General appearance: alert, in no apparent distress Head exam: Present: atraumatic, normocephalic, normal inspection Eye exam: Present: normal appearance, PERRL, EOMI. Absent: scleral icterus, conjunctival injection, periorbital swelling ENT exam: Present: normal exam, mucous membranes moist Neck exam: Present: normal inspection. Absent: tenderness, meningismus, lymphadenopathy Respiratory exam: Present: normal lung sounds bilaterally. Absent: respiratory distress, wheezes, rales, rhonchi, stridor Cardiovascular Exam: Present: regular rate, normal rhythm, normal heart sounds. Absent: systolic murmur, diastolic murmur, rubs, gallop, clicks GI/Abdominal exam: Present: soft, normal bowel sounds. Absent: distended, tenderness, guarding, rebound, rigid Extremities exam: Present: normal inspection, full ROM, normal capillary refill. Absent: tenderness, pedal edema, joint swelling, calf tenderness Back exam: Present: normal inspection Neurological exam: Present: alert, oriented X3, CN II-XII intact Psychiatric exam: Present: normal affect, normal mood Skin exam: Present: warm, dry, intact, normal color. Absent: rash Course Vital Signs 05/06/17 10:08 Temperature 98.1 F Pulse Rate 66 Respiratory 20 Rate Blood Pressure 170/67 O2 Sat by Pulse 98 Oximetry Medical Decision Making - Medical Decision Making 76 female the ER for evaluation. Patient was and see if reduction of left shoulder pain. Nontraumatic chronic pain of left shoulder. No imaging necessary, patient's pain is controlled and can be discharged home Disposition Clinical Impression: Back pain, Rib pain on right side, Pain in scapula Disposition: HOME SELF-CARE Condition: Good Instructions: Back Pain (ED), Shoulder Pain (ED) Referrals: Scott Jerry DO [Primary Care Provider] - 1-2 days
== END 2017-05-06 11:35 | disposition home or self-care (01) ==
LOC: EC 10:02
DX: M54.9 Dorsalgia, unspecified (principal); R07.81 Pleurodynia; M25.511 Pain in right shoulder; R11.0 Nausea; E78.5 Hyperlipidemia, unspecified; E07.9 Disorder of thyroid, unspecified; I10 Essential (primary) hypertension; Z85.3 Personal history of malignant neoplasm of breast; Z85.850 Personal history of malignant neoplasm of thyroid; Z87.891 Personal history of nicotine dependence; Z91.041 Radiographic dye allergy status; Z91.048 Other nonmedicinal substance allergy status; Z91.013 Allergy to seafood; Z91.018 Allergy to other foods; Z79.899 Other long term (current) drug therapy
CPT/HCPCS: 99283

== ENCOUNTER 2017-05-16 09:30 | Day surgery (SDC) | payer MEDICARE, BC ==
[2017-05-15 10:58] VITALS: BMI 32.8
[2017-05-16 09:58] VITALS: RESP 16; TEMP 97.9
[2017-05-16] MEDS ORDERED: LIDOCAINE 1% 20 ML VIAL (10MG/ML) FOR IV START INTRADERMA ONE (10:06)
[2017-05-16] MEDS ORDERED: LACTATED RINGERS 1,000 ML IV ONE (10:06)
[2017-05-16] MEDS ORDERED: LIDOCAINE 1% INJ 10MG/ML (20 ML MDV) ONE (10:28)
[2017-05-16] MEDS ORDERED: PROPOFOL 10 MG/ML 20 ML VIAL IV ONE (10:28)
--- NOTE | 2017-05-16 11:02 | P.PCN ---
Date of Procedure: 05/16/17 Preoperative Diagnosis: Postoperative Diagnosis: Procedure(s) Performed: Brief history: Patient is a pleasant 76-year-old white female, scheduled for an elective upper endoscopy as well as colonoscopy as a part of evaluation of abdominal pain mostly in epigastric area associated with epigastric fullness and intermittent nausea for the last 3 months duration. She went to emergency room 3 times and had cardiac workup during one of the hospitalizations and was negative. Chest by history of peptic ulcer disease and is status post partial gastrectomy 10 years ago. R recently she tried some initial problems with no relief Procedure performed: Esophagogastroduodenoscopy with biopsy Colonoscopy snare polypectomy Preoperative diagnosis: Epigastric pain and change in bowel habits Anesthesia: MAC Procedure: After informed consent was obtained from the patient was brought into the endoscopy unit and IV sedation was administered by anesthesia under continuous monitoring. Initially upper endoscopy was done. The Olympus GF 160 video endoscope was inserted inserted into the mouth and esophagus intubated without any difficulty and was gradually advanced into the stomach and duodenum and carefully examined. There was evidence of previous antrectomy noted. The anastomosis appeared normal. The scope was advanced into the duodenum which appeared normal. The scope was then withdrawn into the stomach adequately insufflated with air and upon careful examination there was gastritis noted in the distal body the stomach and biopsies were done from this area. The body, cardia and fundus appeared normal. The scope was then withdrawn into the esophagus. The GE junction was located at 40 cm to the incisors. It appeared regular with no erythema erosions or ulcerations. Rest of the esophagus appeared normal. Patient tolerated the procedure well. At this time the patient continued to remain sedation. Initial digital rectal examination was normal. Olympus CF 160 video colonoscope was then inserted into the rectum and gradually advanced to the cecum without any difficulty. Careful examination was performed as the scope was gradually being withdrawn. The prep was excellent. The cecum, ascending colon, transverse colon, descending colon, appeared normal. In the descending colon there was a 1 cm polyp that was removed by snare polypectomy. There are scattered sigmoid diverticulosis seen. The rest of the sigmoid colon and rectum appeared normal. Retroflexion was performed in the rectum and small internal hemorrhoidsc were noted. Patient tolerated the procedure well. Impression: 1. Upper endoscopy revealed evidence of previous distal antrectomy and mild gastritis 2. Colonoscopy revealed 1 m descending colon polyp status post polypectomy, sigmoid diverticulosis and small internal hemorrhoids Recommendations: Findings of this examination were discussed with the patient as well as her family. She was advised to follow with the biopsy results. If the biopsy shows a tubular adenoma she can have a repeat: Colonoscopy in 5 years. In regards to the epigastric pain, she'll be started on Carafate 1 g 4 times daily and she'll be seen in the office in a month. Implants: Indications for Procedure: Operative Findings: Description of Procedure:
[2017-05-16 11:23] VITALS: BP 168/73; PULSE 70
== END 2017-05-16 11:40 | disposition home or self-care (01) ==
LOC: ORWHC2ENDO 09:30
PROVIDERS: ATTEND Internal Medicine Gastroenterology
DX: K29.50 Unspecified chronic gastritis without bleeding (principal); K20.9 Esophagitis, unspecified; D12.4 Benign neoplasm of descending colon; K57.30 Diverticulosis of large intestine without perforation or abscess without bleeding; K64.8 Other hemorrhoids; R19.4 Change in bowel habit; Z87.11 Personal history of peptic ulcer disease; Z90.3 Acquired absence of stomach [part of]; I10 Essential (primary) hypertension; E78.5 Hyperlipidemia, unspecified; E07.9 Disorder of thyroid, unspecified; M19.90 Unspecified osteoarthritis, unspecified site; Z79.899 Other long term (current) drug therapy; Z91.09 Other allergy status, other than to drugs and biological substances; Z91.013 Allergy to seafood
CPT/HCPCS: 88305; 88342; 45385; 43239; J2001; J2704

== ENCOUNTER → 2017-07-08 | Outpatient (CLI) | payer MEDICARE, BC ==
--- NOTE | 2017-07-08 09:23 | MM ---
Reason for exam: additional evaluation requested from prior study. Last mammogram was performed 1 year ago. History: Patient is postmenopausal, has history of other cancer at age 37, and has history of breast cancer at age 36. Family history of breast cancer in sister at age 60. Mastectomy of the left breast, 1976. Benign excisional biopsy of the right breast. Physical Findings: Nurse did not find any significant physical abnormalities on exam. MG 3D Diag Mammo W/Cad RT CC and MLO view(s) were taken of the right breast. Prior study comparison: July 04, 2016, right breast MG 3d diag mammo w/cad RT. July 01, 2015, right breast MG diagnostic mammo RT w CAD. There are scattered fibroglandular densities. No new suspicious findings. These results were verbally communicated with the patient and result sheet given to the patient on 07/08/17. ASSESSMENT: Negative, BI-RAD 1 RECOMMENDATION: Routine screening mammogram of the right breast in 1 year.
== END | disposition home or self-care (01) ==
LOC: RADMAMWWP 08:21
PROVIDERS: ATTEND Family Medicine
DX: Z08 Encounter for follow-up examination after completed treatment for malignant neoplasm (principal); Z85.3 Personal history of malignant neoplasm of breast
CPT/HCPCS: G0206; G0279

== ENCOUNTER → 2018-01-02 | Day surgery (SDC) | payer MEDICARE, BC ==
[2017-12-26 15:55] VITALS: BMI 32.7
[~2018-01-02] MED LIST: DEXAMETHASONE SOD PHOSPHATE 10 MG/ML 1 ML VIAL IV ONE; DEXAMETHASONE SOD PHOSPHATE 4 MG/ML 1 ML VIAL IV ONE; FAMOTIDINE 20 MG/2 ML VIAL IV ONE; HYDROmorphone 0.5 MG/0.5 ML SYRINGE IVP PRN; LACTATED RINGERS 1,000 ML IV SCH; MIDAZOLAM 2 MG/2 ML VIAL IV PRN; ONDANSETRON 4 MG/2 ML VIAL IVP ONE; ceFAZolin IN SWFI 2 GM/20 ML SYRINGE IVP ONE
== END ==
LOC: OR 11:57
PROVIDERS: ATTEND Otolaryngology
DX: Z53.9 Procedure and treatment not carried out, unspecified reason (principal)

== ENCOUNTER 2018-01-16 08:43 | Day surgery (SDC) | payer MEDICARE, BC ==
[2018-01-15 08:03] VITALS: BMI 32.8
[~2018-01-16 08:43] MED LIST changes: -DEXAMETHASONE SOD PHOSPHATE 10 MG/ML 1 ML VIAL IV ONE; -DEXAMETHASONE SOD PHOSPHATE 4 MG/ML 1 ML VIAL IV ONE; -FAMOTIDINE 20 MG/2 ML VIAL IV ONE; -MIDAZOLAM 2 MG/2 ML VIAL IV PRN; -ONDANSETRON 4 MG/2 ML VIAL IVP ONE; +Pre Op ABX Message 1 EACH MISC MISCELLANE ONE; -ceFAZolin IN SWFI 2 GM/20 ML SYRINGE IVP ONE; +fentaNYL (PF) 50 MCG/ML 2 ML AMP IV PRN
[2018-01-16] MEDS: ONDANSETRON 4 MG/2 ML VIAL IVP PRN ×2 (09:02→09:05)
[2018-01-16] MEDS ORDERED: LIDOCAINE 1% 20 ML VIAL (10MG/ML) FOR IV START INTRADERMA ONE (09:03)
[2018-01-16] MEDS ORDERED: SUCCINYLCHOLINE CHLORIDE 100 MG/5 ML SYR IV ONE (10:16)
[2018-01-16] MEDS ORDERED: PROPOFOL 10 MG/ML 20 ML VIAL IV ONE (10:16)
[2018-01-16] MEDS ORDERED: ROCURONIUM BROMIDE 10 MG/ML 10 ML VIAL IV ONE (10:16)
[2018-01-16] MEDS ORDERED: MIDAZOLAM 2 MG/2 ML VIAL ONE (10:16)
[2018-01-16] MEDS ORDERED: HYDROmorphone (PF) 1 MG/ML ONE (10:16)
[2018-01-16] MEDS ORDERED: fentaNYL (PF) 50 MCG/ML 2 ML AMP ONE (10:16)
[2018-01-16] MEDS ORDERED: LIDOCAINE 1%-EPI 1:100,000 30 ML VIAL SQ ONE ×2 (10:48)
[2018-01-16 11:52] VITALS: TEMP 98
--- NOTE | 2018-01-16 11:56 | P.OP ---
Date of Procedure: 01/16/18 Preoperative Diagnosis: Thyroid nodule Postoperative Diagnosis: Same Procedure(s) Performed: Subtotal thyroidectomy with isthmusectomy with use of a nerve integrity monitor. Anesthesia: GETA Surgeon: Sai Michelle Estimated Blood Loss (ml): 5 Pathology: other (Thyroid specimen) Condition: stable Disposition: PACU Indications for Procedure: This patient was found have a thyroid nodule and surgical removal was recommended. This nodule has increased in size from 1.1-1.9 cm. This is a significant change in removal was recommended. Operative Findings: Nodule noted in the right side of the thyroid isthmus. Previous surgery was noted. Description of Procedure: This patient was taken to the operative room and placed in the supine position. A general inhalation anesthetic was administered to the patient by mask and subsequently intubated with a cuffed endotracheal tube by the department of anesthesia with a functioning IV line in place. Patient was monitored throughout the entire case by the department of anesthesia. The patient was intubated with a electrode endotracheal tube and a nerve integrity monitor was used through the entire case. The neck was sterilely prepped and draped in usual fashion. We injected this area with lidocaine 1% with epinephrine 1 100, 000 in an incision was made through the incision was previously left behind from her original thyroid surgery. Dissection was carried down to the strap muscles after we elevated superior and inferiorly based skin flaps. We identified the strap muscles them in the midline and the thyroid isthmus was identified. We freed the tissue around the thyroid isthmus and into the right side of the thyroid. We ligated the thyroid isthmus along the left thyroid remnant lobe. We the thyroid isthmus from the right lobe and continued our dissection into the right thyroid gland. We identified the nodule and we removed the portion of thyroid or on that area. We utilized a nerve integrity monitor during this procedure. This thyroid tissue was removed and the nodule was palpated to be inside the tissue. This was a subtotal thyroidectomy. The patient tolerated this well and follow-up will be in the office in 1 week. We did irrigate this area in place Tisseel into the surgical site. We closed the strap muscles with 40 Vicryl. We closed the subcutaneous tissue with Monocryl and the skin with a 5-0 Prolene in a running nonlocking fashion. Excellent approximation was obtained. The nerve integrity monitor was utilized throughout the entire procedure.
[2018-01-16] MEDS: hydrALAZINE HCL 20 MG/ML 1 ML VIAL IVP ONE ×2 (11:58→12:05)
[2018-01-16 12:42] VITALS: RESP 16
[2018-01-16] MEDS ORDERED: HYDROcodone/APAP 5-325MG 1 EACH TAB PO ONE (12:59)
[2018-01-16 13:21] VITALS: BP 138/50; PULSE 84
== END 2018-01-16 13:45 | disposition home or self-care (01) ==
LOC: OR 08:43
PROVIDERS: ATTEND Otolaryngology
DX: E07.89 Other specified disorders of thyroid (principal); I10 Essential (primary) hypertension; E11.9 Type 2 diabetes mellitus without complications; M19.90 Unspecified osteoarthritis, unspecified site; E78.00 Pure hypercholesterolemia, unspecified; M81.0 Age-related osteoporosis without current pathological fracture; Z85.42 Personal history of malignant neoplasm of other parts of uterus; Z85.828 Personal history of other malignant neoplasm of skin; Z85.850 Personal history of malignant neoplasm of thyroid; Z87.891 Personal history of nicotine dependence; Z79.891 Long term (current) use of opiate analgesic; Z79.899 Other long term (current) drug therapy; Z91.041 Radiographic dye allergy status; Z91.013 Allergy to seafood; Z91.048 Other nonmedicinal substance allergy status
CPT/HCPCS: 82310; 88307; 60210; C1762; J2250; J0360; J2405; J3010; J1170; J0330; J2704

== ENCOUNTER → 2018-07-09 | Outpatient (CLI) | payer MEDICARE, BC ==
--- NOTE | 2018-07-10 09:58 | MM ---
Reason for exam: additional evaluation requested from prior study. Last mammogram was performed 1 year ago. History: Patient is postmenopausal, has history of other cancer at age 37, and has history of breast cancer at age 36. Family history of breast cancer in sister at age 60. Mastectomy of the left breast, 1976. Benign excisional biopsy of the right breast (1979) Took hormonal contraceptives for 10 years. Physical Findings: Nurse did not find any significant physical abnormalities on exam. MG 3D Diag Mammo W/Cad RT CC and MLO view(s) were taken of the right breast. Prior study comparison: July 08, 2017, right breast MG 3d diag mammo w/cad RT. July 04, 2016, right breast MG 3d diag mammo w/cad RT. July 01, 2015, right breast MG diagnostic mammo RT w CAD. There are scattered fibroglandular densities. There are benign round calcification in the right breast. No distrete abnormality in the right breast. These results were verbally communicated with the patient and result sheet given to the patient on 07/09/18. ASSESSMENT: Benign, BI-RAD 2 RECOMMENDATION: Follow-up diagnostic mammogram of the right breast in 1 year.
== END | disposition home or self-care (01) ==
LOC: RADMAMWWP 08:03
PROVIDERS: ATTEND Family Medicine
DX: Z08 Encounter for follow-up examination after completed treatment for malignant neoplasm (principal); Z85.3 Personal history of malignant neoplasm of breast
CPT/HCPCS: 77065; G0279; 77061

== ENCOUNTER → 2019-07-22 | Outpatient (CLI) | payer MEDICARE, BC ==
--- NOTE | 2019-07-22 10:50 | MM ---
Reason for exam: additional evaluation requested from prior study. Last mammogram was performed 1 year ago. History: Patient is postmenopausal, has history of other cancer at age 37, and has history of breast cancer at age 36. Family history of breast cancer in sister at age 60. Mastectomy of the left breast, 1976. Benign excisional biopsy of the right breast. Took hormonal contraceptives for 10 years. Physical Findings: Nurse did not find any significant physical abnormalities on exam. MG 3D Diag Mammo W/Cad RT CC and MLO view(s) were taken of the right breast. Prior study comparison: July 09, 2018, right breast MG 3d diag mammo w/cad RT. July 08, 2017, right breast MG 3d diag mammo w/cad RT. The breast tissue is heterogeneously dense. This may lower the sensitivity of mammography. Finding: There is a new equal density (isodense), round mass in the middle position of the right breast. There is a chronic nodularity in the right breast. New finding since July 09, 2018. These results were verbally communicated with the patient and result sheet given to the patient on 07/22/19. ASSESSMENT: Incomplete: need additional imaging evaluation, BI-RAD 0 RECOMMENDATION: Ultrasound of the right breast.
--- NOTE | 2019-07-22 10:52 | USB ---
Reason for exam: additional evaluation requested from abnormal screening. History: Patient is postmenopausal, has history of other cancer at age 37, and has history of breast cancer at age 36. Family history of breast cancer in sister at age 60. Mastectomy of the left breast, 1976. Benign excisional biopsy of the right breast. Took hormonal contraceptives for 10 years. US Breast Limited RT Right limited breast ultrasound including focal area of concern, retroareolar and axilla demonstrates a 0.4 x 0.3 x 0.2cm oval, complex, cystic lesion at 4 o'clock, a 0.2 x 0.4 x 0.2cm oval, cystic cluster at 6 o'clock and a 0.8 x 0.8 x 0.5cm oval node at the axilla. These results were verbally communicated with the patient and result sheet given to the patient on 07/22/19. ASSESSMENT: Probably benign, BI-RAD 3 RECOMMENDATION: Follow-up diagnostic mammogram and ultrasound of the right breast in 6 months.
== END | disposition home or self-care (01) ==
LOC: RADMAMWWP 09:12
PROVIDERS: ATTEND Family Medicine
DX: R92.8 Other abnormal and inconclusive findings on diagnostic imaging of breast (principal)
CPT/HCPCS: 77065; 76642; G0279; 77061

== ENCOUNTER 2019-08-18 11:11 | Emergency (ER) | payer MEDICARE, BC ==
[2019-08-18 11:47] VITALS: RESP 18
[2019-08-18] MEDS ORDERED: SODIUM CHLORIDE 0.9% 1,000 ML IV STA (12:54)
--- NOTE | 2019-08-18 12:58 | ED ---
Chest Pain HPI - General Chief Complaint: Chest Pain Stated Complaint: chest pain Time Seen by Provider: 08/18/19 12:25 Source: patient, RN notes reviewed, old records reviewed Mode of arrival: wheelchair Limitations: no limitations - History of Present Illness Initial Comments: This is a 78-year-old female the ER for evaluation presents today with chest pain left upper extremity pain is left shoulder pain chest pain going to her back. She has had history disabled a presented to emergency, with no findings. Patient denies shortness of breath but does admit to some diaphoresis throughout the day and at night patient does have high blood pressure high cholesterol. No fevers, she does have this diaphoresis. No recent travel history or sick cont acts. No prior history of significant heart disease no history of blood clots she was also complaining of lower extremity edema that is mild and at her baseline MD Complaint: chest pain (Left upper extremity left shoulder left back) -: days(s) Onset: during rest Pain Location: left chest Pain Radiation: LUE, back Severity: mild Severity scale (1-10): 3 Quality: tightness, aching Consistency: constant Improves With: nothing Worsens With: nothing Anginal Symptoms: diaphoresis Other Symptoms: other (None) Treatments Prior to Arrival: none - Related Data Home Medications Medication Instructions Recorded Confirmed Enalapril [Vasotec] 20 mg PO BID 10/18/14 08/18/19 Metoprolol Tartrate [Lopressor] 50 mg PO BID 10/18/14 08/18/19 Levothyroxine Sodium [Synthroid] 50 mcg PO DAILY 12/11/15 08/18/19 fentaNYL 50MCG/HR PATCH [Duragesic 1 patch TRANSDERM Q3D 08/16/16 08/18/19 50MCG/HR] Atorvastatin [Lipitor] 5 mg PO DAILY 08/18/19 08/18/19 Cholecalciferol [Vitamin D3 (25 1,000 unit PO DAILY 08/18/19 08/18/19 Mcg = 1000 Iu)] Allergies Allergy/AdvReac Type Severity Reaction Status Date / Time Iodinated Contrast Media Allergy Severe Rash/Hives Verified 08/18/19 12:33 [Iodinated Contrast Media - IV Dye] iodine Allergy Rash/Hives Verified 08/18/19 12:33 pineapple Allergy SORE IN Verified 08/18/19 12:33 MOUTH shellfish derived Allergy SEVERE Verified 08/18/19 12:33 VOMITING Review of Systems ROS Statement: Those systems with pertinent positive or pertinent negative responses have been documented in the HPI. ROS Other: All systems not noted in ROS Statement are negative. EKG Findings - EKG Comments: EKG Findings:: EKG shows sinus rhythm Rate of 64, VT 186, QRS 112, QTc 449 Past Medical History Past Medical History: Cancer, Hyperlipidemia, Hypertension, Osteoarthritis (OA), Thyroid Disorder Additional Past Medical History / Comment(s): L breast cancer with mastectomy, thyroid cancer, History of Any Multi-Drug Resistant Organisms: None Reported Past Surgical History: Breast Surgery, Cholecystectomy, Hysterectomy Additional Past Surgical History / Comment(s): Partial thyroidectomy, EGD, 1/2 gastrectomy due to ulcers, L breast mastectomy. Past Anesthesia/Blood Transfusion Reactions: No Reported Reaction Past Psychological History: No Psychological Hx Reported Smoking Status: Former smoker Past Alcohol Use History: None Reported Past Drug Use History: None Reported - Past Family History Father History Unknown: Yes Additional Family Medical History / Comment(s): Father when pt was 1 yrs old. Mother Family Medical History: Coronary Artery Disease (CAD), Osteoarthritis (OA), Thyroid Disorder Additional Family Medical History / Comment(s): Enlarged heart. Sister(s) Family Medical History: Cancer Additional Family Medical History / Comment(s): breast General Exam Limitations: no limitations General appearance: alert, in no apparent distress Head exam: Present: atraumatic, normocephalic, normal inspection Eye exam: Present: normal appearance, EOMI. Absent: scleral icterus, conjunctival injection, periorbital swelling ENT exam: Present: normal exam, mucous membranes moist Neck exam: Present: normal inspection. Absent: tenderness, meningismus, lymphadenopathy Respiratory exam: Present: normal lung sounds bilaterally. Absent: respiratory distress, wheezes, rales, rhonchi, stridor Cardiovascular Exam: Present: regular rate, normal rhythm, normal heart sounds. Absent: systolic murmur, diastolic murmur, rubs, gallop, clicks GI/Abdominal exam: Present: soft, normal bowel sounds. Absent: distended, tenderness, guarding, rebound, rigid Extremities exam: Present: normal inspection, full ROM, normal capillary refill. Absent: tenderness, pedal edema, joint swelling, calf tenderness Back exam: Present: normal inspection Neurological exam: Present: alert, oriented X3, CN II-XII intact Psychiatric exam: Present: normal affect, normal mood Skin exam: Present: warm, dry, intact, normal color. Absent: rash Course Vital Signs 08/18/19 08/18/19 08/18/19 11:43 12:58 13:00 Temperature 98.2 F Pulse Rate 68 63 66 Respiratory 18 18 Rate Blood Pressure 162/66 190/94 190/94 O2 Sat by Pulse 99 99 99 Oximetry 08/18/19 08/18/19 08/18/19 13:30 14:30 16:23 Temperature Pulse Rate 67 72 67 Respiratory 18 18 18 Rate Blood Pressure 171/64 194/76 182/71 O2 Sat by Pulse 95 98 98 Oximetry - Reevaluation(s) Reevaluation #1: 08/18/19 12:58 medical record is reviewed Reevaluation #2: 08/18/19 16:31 Patient has no current chest discomfort Chest Pain MDM - MDM I male the ER for evaluation patient resents today for chest pain atypical left- sided chest pain. Patient has normal CT scans EKG and labwork, patient states she feels normal like to be discharged home will return if symptoms worsen, will follow-up with primary care Disposition Clinical Impression: Atypical chest pain, Chest pain Disposition: HOME SELF-CARE Condition: Good Instructions (If sedation given, give patient instructions): Chest Pain (ED), Costochondritis (ED) Is patient prescribed a controlled substance at d/c from ED?: No Referrals: Scott Jerry DO [Primary Care Provider] - 1-2 days
[2019-08-18 13:47] LABS: ALT 19 U/L (9-52); AST 27 U/L (14-36); African American GFR (CKD) >90 (>60 ml/min/1.73 sqM); Albumin 4.5 g/dL (3.5-5.0); Alkaline Phosphatase 51 U/L (38-126); Anion Gap 10 mmol/L; Blood Urea Nitrogen 16 mg/dL (7-17); Calcium 9.7 mg/dL (8.4-10.2); Carbon Dioxide 27 mmol/L (22-30); Chloride 102 mmol/L (98-107); Glucose 138 mg/dL (74-99); Magnesium 1.9 mg/dL (1.6-2.3); Potassium 4.7 mmol/L (3.5-5.1); Sodium 139 mmol/L (137-145); Total Bilirubin 0.9 mg/dL (0.2-1.3); Total Protein 7.9 g/dL (6.3-8.2)
[2019-08-18] MEDS ORDERED: methylPREDNISolone SOD SUCCI 125 MG/2 ML VIAL IV STA (13:52)
[2019-08-18] MEDS ORDERED: FAMOTIDINE 20 MG/2 ML VIAL IV STA (13:52)
[2019-08-18] MEDS ORDERED: diphenhydrAMINE 50 MG/ML 1 ML VIAL IVP STA (13:52)
[2019-08-18 13:57] LABS: Basophils % (A) 1 %; Eosinophils # (A) 0.1 k/uL (0-0.7); Eosinophils % (A) 1 %; HCT 36.2 % (34.0-46.0); HGB 12.2 gm/dL (11.4-16.0); Lymphocytes # (A) 1.3 k/uL (1.0-4.8); Lymphocytes % (A) 24 %; MCH 29.7 pg (25.0-35.0); MCHC 33.6 g/dL (31.0-37.0); MCV 88.2 fL (80.0-100.0); Mean Platelet Volume 6.9; Monocytes # (A) 0.3 k/uL (0-1.0); Monocytes % (A) 5 %; Neutrophils # (A) 3.8 k/uL (1.3-7.7); Neutrophils % (A) 68 %; Platelet Count 224 k/uL (150-450); Prothrombin Time 10.4 sec (9.0-12.0); RDW 12.6 % (11.5-15.5); WBC 5.6 k/uL (3.8-10.6)
[2019-08-18 14:06] LABS: D-Dimer 0.78 mg/L FEU (<0.60); Partial Thromboplastin Time 20.8 sec (22.0-30.0)
--- NOTE | 2019-08-18 15:33 | CT ---
EXAMINATION TYPE: CT angio chest DATE OF EXAM: 08/18/2019 COMPARISON: 03/19/2017 HISTORY: 78-year-old female chest pain TECHNIQUE: Contiguous axial scanning of the chest performed with IV Contrast, patient injected with 1 00 mL of Isovue 370. Coronal/sagittal MIP reconstructions performed. CT DLP: 386.7 mGycm Automated exposure control for dose reduction was used. FINDINGS: Heart upper limits of normal in size without pericardial effusion. Scattered mild coronary vessel gail cifications are. Aorta normal caliber with mild arch calcifications which are somewhat branching anatomy. Mildly enlarged caliber to the right and left pulmonary arteries and 3.0 and 2.8 cm, respectively, thomson ggesting underlying pulmonary artery hypertension. No evidence for pulmonary embolus. Prominent dependent atelectasis and focal patchy peripheral left basilar opacity, probably atelectasi s or scarring. Calcified subcarinal lymph node compatible with prior granulomatous disease. No thoracic lymphadenopa thy by CT size criteria. Some surgical material at the GE junction with a tiny hernia. Stable contour nodularity along the lateral anterior aspect of the spleen measuring 1.4 cm. Stability from 2017 suggests a benign etiology. Moderate degenerative disc disease mid to lower thoracic spine. No osseous destructive process. Chloe l variants. IMPRESSION: 1. NO EVIDENCE FOR PULMONARY EMBOLUS. UNDERLYING PULMONARY ARTERIAL HYPERTENSION. 2. PRIOR GRANULOMATOUS DISEASE. 3. SOME PATCHY PERIPHERAL LEFT BASILAR ATELECTASIS VERSUS EARLY INFILTRATE. CORRELATE FOR ANY INFECTI OUS SIGNS/SYMPTOMS.
[2019-08-18 16:24] VITALS: PULSE 67
[2019-08-18 16:53] VITALS: BP 179/75; TEMP 98.7
== END 2019-08-18 16:52 | disposition home or self-care (01) ==
LOC: EC 11:11
DX: R07.89 Other chest pain (principal); M79.602 Pain in left arm; M25.512 Pain in left shoulder; M54.9 Dorsalgia, unspecified; R61 Generalized hyperhidrosis; E78.00 Pure hypercholesterolemia, unspecified; E78.5 Hyperlipidemia, unspecified; I10 Essential (primary) hypertension; Z87.891 Personal history of nicotine dependence; Z91.013 Allergy to seafood; Z91.018 Allergy to other foods; Z91.041 Radiographic dye allergy status; Z91.048 Other nonmedicinal substance allergy status; Z79.890 Hormone replacement therapy; Z79.891 Long term (current) use of opiate analgesic; Z79.899 Other long term (current) drug therapy; Z85.3 Personal history of malignant neoplasm of breast; Z85.850 Personal history of malignant neoplasm of thyroid; E89.0 Postprocedural hypothyroidism; Z90.12 Acquired absence of left breast and nipple; Z82.49 Family history of ischemic heart disease and other diseases of the circulatory system
CPT/HCPCS: 99285; 96374; 96375 ×2; 96361; 36415; 93005; 85379; 83880; 80053; 83690; 83735; 84484; 85025; 85610; 85730; 71275; J1200; J2930; Q9967

== ENCOUNTER → 2019-10-09 | Outpatient (CLI) | payer MEDICARE, BC ==
[2019-10-09 10:03] VITALS: BP 153/71; PULSE 57; RESP 18; TEMP 98.4; BMI 35.2
--- NOTE | 2019-10-09 10:51 | P.GSHP ---
History of Present Illness H&P Date: 10/09/19 Chief Complaint: abnormal mammogram and ultrasound of hte right breast, left breast cancer Tamica is a 78-year-old white female who presents for breast evaluation. Of importance is the fact that she underwent a left breast mastectomy approximately 30 years ago for a very small tumor. She states that she did not have any chemotherapy, radiation or hormonal therapy. She was told this was a breast cancer. She was 36 at the time, she did not have any genetic testing. The patient has routine screening mammograms performed on a regular basis. She had a mammogram performed of the right breast in June 2019 this revealed chronic nodularity and an ultrasound was recommended. On ultrasound she was noted to have cystic lesions which were felt to be most likely benign. Repeat right breast mammogram and ultrasound in 6 months was recommended. The patient has not noted any masses lumps or nodules in her breast. She has no complaints of any nipple discharge or skin changes. She has no history of the recent infection or trauma to the breast. She has no pain in her breast. She did have a biopsy of the right breast many years ago which was benign. The patient drinks half cup of coffee per day. She does not smoke and is not exposed to secondhand smoke. She does like chocolate, which she eats daily. She does not take hormones or soy products. Family history: patient: thyroid cancer patient: breast cancer at 37 sister: of breast cancer at 62 Hormonal History: menarche: 14 , breast fed: no, age at : 23 menopause: late 40's BCP: 10 years hormones: none Past Surgical History 1. skin biopsy nose 2. thyroid cancer 1 lobe removed 3. gallbladder 4. PUD 5. hysterectomy took ovaries 6. mastectomy Medical History: 1. arthritis Social History: smoke: stopped 40 years ago alcohol: noen drugs: none - Constitutional Constitutional: Denies chills, Denies fever - EENT Comment: glasses for reading Eyes: denies blurred vision, denies pain Ears: deny: decreased hearing, tinnitus Ears, nose, mouth and throat: Denies headache, Denies sore throat - Breasts Breasts: bilateral: as per HPI - Cardiovascular Cardiovascular: Reports high blood pressure - Respiratory Respiratory: Denies cough, Denies 7 - Gastrointestinal Comment: PUD status post surgery in past - Genitourinary (Female) Genitourinary: Denies dysuria, Denies hematuria - Menstruation Menstruation: Reports postmenopausal - Musculoskeletal Comment: arthritis - Integumentary Integumentary: Denies rash - Neurological Neurological: Denies numbness, Denies weakness - Psychiatric Psychiatric: Denies anxiety, Denies depression - Endocrine Endocrine: Denies fatigue, Denies weight change - Hematologic/Lymphatic Comment: none - Allergic/Immunologic Comment: shellfish, pineapple Allergic/Immunologic: Reports as per HPI Past Medical History Past Medical History: Cancer, Hyperlipidemia, Hypertension, Osteoarthritis (OA), Thyroid Disorder Additional Past Medical History / Comment(s): L breast cancer with mastectomy, thyroid cancer, History of Any Multi-Drug Resistant Organisms: None Reported Past Surgical History: Breast Surgery, Cholecystectomy, Hysterectomy Additional Past Surgical History / Comment(s): Partial thyroidectomy, EGD, 1/2 gastrectomy due to ulcers, L breast mastectomy. Past Anesthesia/Blood Transfusion Reactions: No Reported Reaction Past Psychological History: No Psychological Hx Reported Additional Psychological History / Comment(s): . Smoking Status: Former smoker Past Alcohol Use History: None Reported Additional Past Alcohol Use History / Comment(s): Pt smoked from [id number] SMOKED 1/4-1/2 PPD Past Drug Use History: None Reported - Past Family History Father History Unknown: Yes Additional Family Medical History / Comment(s): Father when pt was 1 yrs old. Mother Family Medical History: Coronary Artery Disease (CAD), Osteoarthritis (OA), Thyroid Disorder Additional Family Medical History / Comment(s): Enlarged heart. Sister(s) Family Medical History: Cancer Additional Family Medical History / Comment(s): breast Medications and Allergies Home Medications Medication Instructions Recorded Confirmed Type Enalapril [Vasotec] 20 mg PO BID 10/18/14 10/09/19 History Metoprolol Tartrate [Lopressor] 50 mg PO BID 10/18/14 10/09/19 History Levothyroxine Sodium [Synthroid] 50 mcg PO DAILY 12/11/15 10/09/19 History fentaNYL 50MCG/HR PATCH [Duragesic 1 patch TRANSDERM Q3D 08/16/16 10/09/19 History 50MCG/HR] Atorvastatin [Lipitor] 5 mg PO DAILY 08/18/19 10/09/19 History Cholecalciferol [Vitamin D3 (25 2,000 unit PO DAILY 08/18/19 10/09/19 History Mcg = 1000 Iu)] Sucralfate [Carafate] 1 gm PO DAILY PRN 10/09/19 10/09/19 History cloNIDine HCL [Catapres] 0.1 mg PO HS 10/09/19 10/09/19 History Allergies Allergy/AdvReac Type Severity Reaction Status Date / Time Iodinated Contrast Media Allergy Severe Rash/Hives Verified 10/09/19 10:08 [Iodinated Contrast Media - IV Dye] iodine Allergy Rash/Hives Verified 10/09/19 10:08 pineapple Allergy SORE IN Verified 10/09/19 10:08 MOUTH shellfish derived Allergy SEVERE Verified 10/09/19 10:08 VOMITING Surgical - Exam Vital Signs Temp Pulse Resp BP Pulse Ox 98.4 F 57 L 18 153/71 96 10/09/19 10:00 10/09/19 10:00 10/09/19 10:00 10/09/19 10:00 10/09/19 10:00 BMI 35.2 - General obese - Eyes normal ocular movement - ENT dentures upper and lower normal pinna, normal nares, no hearing loss - Neck no masses, trachea midline, no lymphadectomy, no venous distension - Respiratory normal expansion, normal respiratory effort, clear to percussion, clear to auscu ltation - Cardiovascular Rhythm: regular Heart Sounds: normal: S1, S2 - Abdomen normal bowel sounds Abdomen: soft, non tender, no guarding, no rigid, no rebound - Integumentary well healed scar from thyroid surgery no rash - Neurologic no disoriented, no combative - Musculoskeletal uses a walker normal posture - Psychiatric oriented to time, oriented to person, oriented to place, speech is normal, memory intact breast exam: Right breast: Multi-positional exam fibrocystic changes, no dominant masses or nodules of concern Right axilla: No adenopathy of concern Left chest wall: No evidence of any recurrent cancer Left axilla: No adenopathy of concern Results mammogram and ultrasound reports reviewed Assessment and Plan Assessment: Impression: 1. personal history of breast cancer 2. personal history of thyroid cancer 3. abnormal ultrasound and mammogram right breast 4. HTN 5. arthritis 6. 35.2 Plan: 1. repeat mammogram and ultrsound of the right breast in 6 months, with appointment at that time 2. Patient is anything of concern to see us sooner We have talked about causes of fibrocystic breast disease including nicotine, theophylline, and caffeine. Patient is aware and will be cautious about Caffeine and theophylline intake. We have also discussed weight loss. Time with Patient: Greater than 30 (discussion about things that will increase breast cancer risk. Obesity may increase estrogen exposure, and risk of fibrocystic changes with caffeine, theophylline, and nicotine.Have recommended lifestyle modification and close survellience.)
== END ==
LOC: WWCWWP 09:27
PROVIDERS: ATTEND Surgery
DX: Z53.9 Procedure and treatment not carried out, unspecified reason (principal)

== ENCOUNTER 2020-03-02 08:19 | Observation (INO) | payer MEDICARE, BC ==
[2020-03-02] MEDS ORDERED: ASPIRIN 81 MG PO STA (08:40)
--- NOTE | 2020-03-02 08:58 | ED ---
Chest Pain HPI <Ronnie Coulter - Last Filed: 03/02/20 10:27> - General Source: patient Mode of arrival: ambulatory Limitations: no limitations <Magaly Carmona - Last Filed: 03/02/20 12:06> - General Chief Complaint: Chest Pain Stated Complaint: Chest Pain and Nausea Time Seen by Provider: 03/02/20 08:27 - History of Present Illness Initial Comments: 79-year-old female history of diabetes diet controlled, HTN, thryoid disease presents emergency department today for chief complaint of chest discomfort, neck discomfort, diarrhea and nausea. Patient states the past 2 days she has had a discomfort in her chest as well as her neck. She states that she has also had a somewhat upset stomach in the upper area with diarrhea and nausea. Patient denies any jaundice denies melena hematochezia. Patient denies any shortness of breath denies any jaw pain upper extremity pain or back pain. Patient denies a known history of coronary artery disease. Patient denies any known heart failure. Patient denies leg swelling she denies any history of DVT pulmonary embolism denies hemoptysis recent surgical procedures recent travel or immobilization, denies exogenous hormone use. Patient denies vomiting. Denies headache, dizziness or presyncope. Patient states that the symptoms are "not that bad" right now. But wanted to be sure she had this checked out before the weekend. Upon arrival patient appears well there is no signs of acute distress. She refused wheel chair and did not appear SOB while ambulating. (Magaly Carmona) - Related Data Home Medications Medication Instructions Recorded Confirmed Enalapril [Vasotec] 20 mg PO BID 10/18/14 03/02/20 Metoprolol Tartrate [Lopressor] 50 mg PO BID 10/18/14 03/02/20 Levothyroxine Sodium [Synthroid] 50 mcg PO DAILY 12/11/15 03/02/20 fentaNYL 50MCG/HR PATCH [Duragesic 1 patch TRANSDERM Q72H 08/16/16 03/02/20 50MCG/HR] Atorvastatin [Lipitor] 5 mg PO DAILY 08/18/19 03/02/20 cloNIDine HCL [Catapres] 0.1 mg PO HS 10/09/19 03/02/20 Cyanocobalamin (Vitamin B-12) 2,000 mcg PO DAILY 03/02/20 03/02/20 [Vitamin B-12] HYDROcodone/APAP 10-325MG [[place] 1 tab PO Q8H PRN 03/02/20 03/02/20 10-325] Allergies Allergy/AdvReac Type Severity Reaction Status Date / Time Iodinated Contrast Media Allergy Severe Rash/Hives Verified 03/02/20 10:34 [Iodinated Contrast Media - IV Dye] iodine Allergy Rash/Hives Verified 03/02/20 10:34 pineapple Allergy SORE IN Verified 03/02/20 10:34 MOUTH shellfish derived Allergy SEVERE Verified 03/02/20 10:34 VOMITING Review of Systems ROS Other: All systems not noted in ROS Statement are negative. <Ronnie Coulter - Last Filed: 03/02/20 10:27> ROS Other: All systems not noted in ROS Statement are negative. <Magaly Carmona - Last Filed: 03/02/20 12:06> ROS Statement: Those systems with pertinent positive or pertinent negative responses have been documented in the HPI. EKG Findings - EKG Comments: EKG Findings:: ventricular rate 58 bpm, DC interval 180 ms, QRS duration 102 ms, QT/QTC 422/414 ms. This is sinus bradycardia. There is no obvious ST elevation or depression. <Magaly Carmona - Last Filed: 03/02/20 12:06> Past Medical History Past Medical History: Cancer, Hyperlipidemia, Hypertension, Osteoarthritis (OA), Thyroid Disorder Additional Past Medical History / Comment(s): L breast cancer with mastectomy, thyroid cancer, History of Any Multi-Drug Resistant Organisms: None Reported Past Surgical History: Breast Surgery, Cholecystectomy, Hysterectomy Additional Past Surgical History / Comment(s): Partial thyroidectomy, EGD, 1/2 gastrectomy due to ulcers, L breast mastectomy. Past Anesthesia/Blood Transfusion Reactions: No Reported Reaction Past Psychological History: No Psychological Hx Reported Smoking Status: Former smoker Past Alcohol Use History: None Reported Past Drug Use History: None Reported - Past Family History Father History Unknown: Yes Additional Family Medical History / Comment(s): Father when pt was 1 yrs old. Mother Family Medical History: Coronary Artery Disease (CAD), Osteoarthritis (OA), Thyroid Disorder Additional Family Medical History / Comment(s): Enlarged heart. Sister(s) Family Medical History: Cancer Additional Family Medical History / Comment(s): breast <Magaly Carmona - Last Filed: 03/02/20 12:06> General Exam Limitations: no limitations <Magaly Carmona - Last Filed: 03/02/20 12:06> - General Exam Comments Initial Comments: General: The patient is awake and alert, in no distress Eye: +3 mm pupils are equal, round and reactive to light, extra-ocular movements are intact. No nystagmus. There is normal conjunctiva bilaterally. No signs of icterus. Ears, nose, mouth and throat: There are moist mucous membranes and no oral lesions. Neck: The neck is supple, there is no tenderness or JVD. Cardiovascular: There is a regular rate and rhythm. No murmur, rub or gallop is appreciated. Respiratory: Lungs are clear to auscultation, respirations are non-labored, breath sounds are equal. No wheezes, stridor, rales, or rhonchi. Gastrointestinal: Soft, non-distended, some epigastric tenderness to palpation of the abdomen without masses or organomegaly noted. There is no rebound or guarding present. Musculoskeletal: Normal ROM, no tenderness. Strength 5/5. Sensation intact. Radial pulses equal bilaterally 2+. Neurological: A&O x 3. CN II-XII intact grossly, There are no obvious motor or sensory deficits. Coordination appears grossly intact. Speech is normal. Skin: Skin is warm and dry and no rashes or lesions are noted. Psychiatric: Cooperative, appropriate mood & affect, normal judgment. (Magaly Carmona Patrizia) Course <Ronnie Coulter - Last Filed: 03/02/20 10:27> Vital Signs 03/02/20 03/02/20 03/02/20 08:22 09:30 10:00 Temperature 98.5 F Pulse Rate 65 54 L 57 L Respiratory 18 18 17 Rate Blood Pressure 189/70 158/74 O2 Sat by Pulse 98 98 97 Oximetry 03/02/20 11:00 Temperature 98.0 F Pulse Rate 57 L Respiratory 18 Rate Blood Pressure 170/67 O2 Sat by Pulse Oximetry - Reevaluation(s) Reevaluation #1: 03/02/20 10:27 PA supervision: I proceeded [id number] evaluation the patient she did present with complaints of anterior chest pain or radiated up her neck intermittently over last couple days. Initial workup in emergency department is negative. Patient will be admitted for inpatient evaluation the case was discussed with Dr. Cabrera. I did review old charting. (Ronnie Coulter) Chest Pain MDM <Magaly Carmona - Last Filed: 03/02/20 12:06> - MDM 79 yo female presenting to the ER today for cc of chest discomfort. Initial troponin (-). Some mild abdominal pain. US (-). Labs no leukocytosis, or abnormalities of LFTs, bilirubin. TSH WNL. Patient appears well there is no signs of acute distress. Patient evaluated by Dr Orona who is agreeable to admission for CP r/o. Patient agreeable to admission. Dr Coulter spoke to Dr. Coulter. (Magaly Carmona) Disposition <Ronnie Coulter - Last Filed: 03/02/20 10:27> Is patient prescribed a controlled substance at d/c from ED?: No Time of Disposition: 10:17 Decision to Admit Reason: Admit from EC Decision Date: 03/02/20 Decision Time: 10:17 <Magaly Carmona - Last Filed: 03/02/20 12:06> Clinical Impression: Chest pain, Nausea, Diarrhea, Neck pain Disposition: ADMITTED IP TO THIS HOSP Condition: Stable
--- NOTE | 2020-03-02 09:09 | XR ---
EXAMINATION TYPE: XR chest 2V DATE OF EXAM: 03/02/2020 COMPARISON: 03/19/2017 HISTORY: Shortness of breath TECHNIQUE: Frontal and lateral views of the chest are obtained. FINDINGS: Scattered senescent parenchymal changes noted. Hyperinflation compatible with COPD. No evidence for infiltrate. No evidence for atelectasis. Heart size is stable. Mediastinal structures are stable and grossly unremarkable. No evidence for hilar prominence. Degenerative changes dorsal spine. IMPRESSION: 1. No evidence for acute pulmonary disease.
[2020-03-02 09:15] LABS: Basophils % (A) 0 %; Eosinophils # (A) 0.1 k/uL (0-0.7); Eosinophils % (A) 1 %; HCT 39.5 % (34.0-46.0); HGB 13.4 gm/dL (11.4-16.0); Lymphocytes # (A) 1.7 k/uL (1.0-4.8); Lymphocytes % (A) 18 %; MCH 29.6 pg (25.0-35.0); MCHC 33.9 g/dL (31.0-37.0); MCV 87.3 fL (80.0-100.0); Mean Platelet Volume 7.4; Monocytes # (A) 0.6 k/uL (0-1.0); Monocytes % (A) 6 %; Neutrophils # (A) 6.9 k/uL (1.3-7.7); Neutrophils % (A) 73 %; Platelet Count 221 k/uL (150-450); RBC 4.52 m/uL (3.80-5.40); RDW 12.2 % (11.5-15.5); WBC 9.4 k/uL (3.8-10.6)
[2020-03-02 09:24] LABS: ALT 17 U/L (4-34); AST 30 U/L (14-36); African American GFR (CKD) >90 (>60 ml/min/1.73 sqM); Albumin 4.7 g/dL (3.5-5.0); Alkaline Phosphatase 46 U/L (38-126); Amylase 52 U/L (30-110); Anion Gap 8 mmol/L; Blood Urea Nitrogen 14 mg/dL (7-17); Calcium 9.2 mg/dL (8.4-10.2); Carbon Dioxide 27 mmol/L (22-30); Chloride 103 mmol/L (98-107); Glucose 173 mg/dL (74-99); Magnesium 2.3 mg/dL (1.6-2.3); Non-African American GFR(CKD) 87 (>60 ml/min/1.73 sqM); Sodium 138 mmol/L (137-145); Total Bilirubin 0.7 mg/dL (0.2-1.3); Total Protein 7.9 g/dL (6.3-8.2)
[2020-03-02 09:27] LABS: Potassium 4.7 mmol/L (3.5-5.1)
--- NOTE | 2020-03-02 09:50 | US ---
EXAMINATION TYPE: US abdomen limited DATE OF EXAM: 03/02/2020 COMPARISON: CLINICAL HISTORY: epigastric pain, diarrhea, nausea. GB removed. EXAM MEASUREMENTS: Liver Length: 17.8 cm CBD: 0.6 cm Right Kidney: 10.6 x 4.8 x 5.0 cm Extremely limited exam due to patient body habitus and overlying bowel gas Pancreas: Tail obscured by overlying bowel gas. Limited visualization. Liver: Increased attenuation, decreased visualization of vessels suggestive of fatty infiltrate. Li mited visualization. Gallbladder: Surgically absent Evidence for sonographic Mohamud's sign: neg CBD: wnl Right Kidney: No prominent hydronephrosis or masses seen. Limited visualization. IMPRESSION: Probable hepatic steatosis.
[2020-03-02 10:35] LABS: Partial Thromboplastin Time 22.5 sec (22.0-30.0); Prothrombin Time 10.1 sec (9.0-12.0)
[2020-03-02] MEDS: ATORVASTATIN 10 MG TAB PO SCH ×2 (12:12→12:21)
[2020-03-02] MEDS: METOPROLOL TARTRATE 50 MG TAB PO SCH ×3 (12:12→21:02)
[2020-03-02] MEDS: LISINOPRIL 20 MG TAB PO SCH ×3 (12:13→21:03)
[2020-03-02] MEDS: LEVOTHYROXINE 50 MCG TAB PO SCH (12:13)
[2020-03-02] MEDS ORDERED: amLODIPine 5 MG TAB PO STA ×2 (13:04→15:42)
--- NOTE | 2020-03-02 13:38 | P.CRDCN ---
History of Present Illness Consult date: 03/02/20 Consult reason: chest pain Chief complaint: Chest pain, nausea, diarrhea History of present illness: This is a pleasant 79-year-old female with documented history of hypertension, hyperlipidemia, prior history of breast cancer and thyroid cancer, patient also has history of diet-controlled diabetes. She presented to the hospital on this occasion with multiple symptoms, including a discomfort in the upper chest region, into the side of her throat, though symptoms lasted for a few minutes and dissipated. Subsequently, patient became quite nauseated and had several bouts of loose stools. She had no vomiting episodes but did have several episodes of diarrhea. She's also having significant gas complaints and abdominal discomfort. Blood pressure 182/70 with a heart rate in the 60s, afebrile. Laboratory data was reviewed, white blood cell count 9.4, hemoglobin 13.4, platelet count 221. Sodium 138, potassium 4.7, BUN 14, creatinine 0.5. Troponin 0.012, TSH 1.1, proBNP 418. At the time of my examination the patient states she has been very dry mouth, lack of appetite today, still having some ab dominal bloating and discomfort. Denies any chest pain. Chest x-ray did not reveal any evidence of any acute disease. EKG shows a normal sinus rhythm with no acute changes. Past Medical History Past Medical History: Cancer, Hyperlipidemia, Hypertension, Osteoarthritis (OA), Thyroid Disorder Additional Past Medical History / Comment(s): L breast cancer with mastectomy, thyroid cancer, History of Any Multi-Drug Resistant Organisms: None Reported Past Surgical History: Breast Surgery, Cholecystectomy, Hysterectomy Additional Past Surgical History / Comment(s): Partial thyroidectomy, EGD, 1/2 gastrectomy due to ulcers, L breast mastectomy. Past Anesthesia/Blood Transfusion Reactions: No Reported Reaction Past Psychological History: No Psychological Hx Reported Smoking Status: Former smoker Past Alcohol Use History: None Reported Past Drug Use History: None Reported - Past Family History Father History Unknown: Yes Additional Family Medical History / Comment(s): Father when pt was 1 yrs old. Mother Family Medical History: Coronary Artery Disease (CAD), Osteoarthritis (OA), Thyroid Disorder Additional Family Medical History / Comment(s): Enlarged heart. Sister(s) Family Medical History: Cancer Additional Family Medical History / Comment(s): breast Medications and Allergies Home Medications Medication Instructions Recorded Confirmed Type Enalapril [Vasotec] 20 mg PO BID 10/18/14 03/02/20 History Metoprolol Tartrate [Lopressor] 50 mg PO BID 10/18/14 03/02/20 History Levothyroxine Sodium [Synthroid] 50 mcg PO DAILY 12/11/15 03/02/20 History fentaNYL 50MCG/HR PATCH [Duragesic 1 patch TRANSDERM Q72H 08/16/16 03/02/20 History 50MCG/HR] Atorvastatin [Lipitor] 5 mg PO DAILY 08/18/19 03/02/20 History cloNIDine HCL [Catapres] 0.1 mg PO HS 10/09/19 03/02/20 History Cyanocobalamin (Vitamin B-12) 2,000 mcg PO DAILY 03/02/20 03/02/20 History [Vitamin B-12] HYDROcodone/APAP 10-325MG [[place] 1 tab PO Q8H PRN 03/02/20 03/02/20 History 10-325] Allergies Allergy/AdvReac Type Severity Reaction Status Date / Time Iodinated Contrast Media Allergy Severe Rash/Hives Verified 03/02/20 10:34 [Iodinated Contrast Media - IV Dye] iodine Allergy Rash/Hives Verified 03/02/20 10:34 pineapple Allergy SORE IN Verified 03/02/20 10:34 MOUTH shellfish derived Allergy SEVERE Verified 03/02/20 10:34 VOMITING Physical Exam Vitals: Vital Signs Temp Pulse Pulse Resp BP BP Pulse Ox 03/02/20 12:00 98.6 F 60 18 182/77 98 03/02/20 11:00 98.0 F 57 L 18 170/67 03/02/20 10:00 57 L 17 158/74 97 03/02/20 09:30 54 L 18 98 03/02/20 08:22 98.5 F 65 18 189/70 98 Intake and Output 03/01/20 03/02/20 03/02/20 22:59 06:59 14:59 Other: Weight 99.79 kg PHYSICAL EXAMINATION: GENERAL: 79-year-old female in no acute distress at the time of my examination HEENT: Head is atraumatic, normocephalic. Pupils equal, round. Sclera anicteric. Conjunctiva are clear. Mucous membranes of the mouth are moist. Neck is supple. There is no elevated jugular venous pressure. No carotid bruit is heard. HEART EXAMINATION: Heart S1, S2 normal. No murmur or gallop heard. CHEST EXAMINATION: Lungs are clear to auscultation and precussion. No chest wall tenderness is noted on palpation or with deep breathing. ABDOMEN: Soft, mildly bloated, mild generalized tenderness. Bowel sounds are heard. No organomegaly noted. EXTREMITIES: 2+ peripheral pulses with no evidence of peripheral edema and no calf tenderness noted. NEUROLOGIC patient is awake, alert and oriented 3 . . Results 03/02/20 08:59 03/02/20 08:59 Cardiac Enzymes 03/02/20 03/02/20 Range/Units 08:59 08:59 AST 30 (14-36) U/L Troponin I <0.012 (0.000-0.034) ng/mL Coagulation 03/02/20 Range/Units 09:45 PT 10.1 (9.0-12.0) sec APTT 22.5 (22.0-30.0) sec CBC 03/02/20 Range/Units 08:59 WBC 9.4 (3.8-10.6) k/uL RBC 4.52 (3.80-5.40) m/uL Hgb 13.4 (11.4-16.0) gm/dL Hct 39.5 (34.0-46.0) % Plt Count 221 (150-450) k/uL Comprehensive Metabolic Panel 03/02/20 Range/Units 08:59 Sodium 138 (137-145) mmol/L Potassium 4.7 (3.5-5.1) mmol/L Chloride 103 (98-107) mmol/L Carbon Dioxide 27 (22-30) mmol/L BUN 14 (7-17) mg/dL Creatinine 0.59 (0.52-1.04) mg/dL Glucose 173 H (74-99) mg/dL Calcium 9.2 (8.4-10.2) mg/dL AST 30 (14-36) U/L ALT 17 (4-34) U/L Alkaline Phosphatase 46 (38-126) U/L Total Protein 7.9 (6.3-8.2) g/dL Albumin 4.7 (3.5-5.0) g/dL Current Medications Generic Name Dose Route Start Last Admin Trade Name Freq PRN Reason Stop Dose Admin Hydrocodone Bitart/Acetaminophen 1 each 03/02/20 11:44 [place] 10 PO Q8H PRN Pain Aspirin 325 mg 03/03/20 09:00 Aspirin PO DAILY CODIE Atorvastatin Calcium 5 mg 03/02/20 11:45 03/02/20 12:21 Lipitor PO Not Given DAILY CODIE Clonidine 0.1 mg 03/02/20 21:00 Catapres PO HS CODIE Fentanyl 1 patch 03/05/20 09:00 Duragesic 50mcg/Hr Patch TRANSDERM Q72H CODIE Levothyroxine Sodium 50 mcg 03/02/20 11:45 03/02/20 12:13 Synthroid PO 50 mcg DAILY CODIE Administration Lisinopril 40 mg 03/02/20 11:45 03/02/20 12:20 Zestril PO Not Given BID CODIE Metoprolol Tartrate 50 mg 03/02/20 11:45 03/02/20 12:19 Lopressor PO Not Given BID CODIE Intake and Output 03/01/20 03/02/20 03/02/20 22:59 06:59 14:59 Other: Weight 99.79 kg Patient Weight 03/03/20 06:59 Weight 99.79 kg 03/02/20 08:59 03/02/20 08:59 EKG Interpretations (text) EKG shows a normal sinus rhythm with no acute changes. Assessment and Plan Plan: Assessment and plan #1 chest pain, atypical features for acute coronary syndrome. Initial troponin is negative. EKG shows a normal sinus rhythm with no acute changes. #2 symptoms of nausea, with diarrhea stools, bloating and gas. Probable hepatic steatosis on ultrasound. Patient did undergo an EGD and colonoscopy [place] [address] Nunez which revealed mild gastritis colonoscopy revealed a 1 mm descending colon polyp status post polypectomy sigmoid diverticulosis and small internal hemorrhoids. Patient denies any blood in her stool or black stool #3 accelerated hypertension #4 hyperlipidemia #5 history of breast cancer #6 history of thyroid cancer, for which the patient underwent a subtotal thyroidectomy Plan We will obtain an echocardiogram with Doppler study, obtain a repeat EKG in the morning, obtain 2 subsequent troponins. Patient will require a stress test down the road, in view of the fact that the patient has continuous diarrhea with episodes of nausea, we will defer the stress test at this time. We will adjust her medications to optimize blood pressure control. Further recommendations to follow. DNP note has been reviewed, I agree with a documented findings and plan of care. Patient was seen and examined.
[2020-03-02] MEDS ORDERED: amLODIPine 5 MG TAB PO SCH (13:45)
[2020-03-02] MEDS: NITROGLYCERIN SL TABS 0.4 MG TAB SUBLINGUAL PRN ×2 (15:49→15:54)
--- NOTE | 2020-03-02 20:05 | P.HPIM ---
History of Present Illness H&P Date: 03/02/20 Chief Complaint: Chest pain History of presenting complaint: This is a pleasant 7-year-old patient of Dr. Scott Rice. Chronic stable medical conditions include hyperlipidemia, hypertension, osteoarthritis, hypothyroid, left breast cancer with mastectomy. Patient also had a prior partial thyroidectomy and a partial gastrectomy due to ulcers. Patient for about 5 days as not been feeling good. Has had some upper abdominal discomfort. No obvious fevers. Also some diarrhea about 3 days. About 2 times a day. Loose. No blood. Significant nauseous been present. No cough or shortness of breath. Appetite is poor. Also for last 2 days has had chest pain. No swea ting no dizziness no lightheadedness. Present for variable amount anteriorly. Not related to exertion. Admitted to the cardiac floor. Review of systems: GEN.: Tired EYES: None HEENT: None NECK: None RESPIRATORY: None CARDIOVASCULAR: As above GASTROINTESTINAL: As above GENITOURINARY: None MUSCULOSKELETAL: Joint pains LYMPHATICS: None HEMATOLOGICAL: None PSYCHIATRY: None NEUROLOGICAL: None Past medical history to include: Hyperlipidemia, hypertension, osteoarthritis, thyroid cancer with partial thyroidectomy, left breast cancer with mastectomy, partial gastrectomy due to ulcers Social history: Lives in a condo. Does use a walker. Did smoke for 10 years stopped in 1986. Less than half a pack a day. Physical examination: VITAL SIGNS: 98.5, 65, 18, 150-74, 98% on room air GENERAL: [BMI 34.5, sitting up, but tired. EYES: Pupils equal. Conjunctiva normal. HEENT: External appearance of nose and ears normal, oral cavity grossly normal. NECK: JVD not raised; masses not palpable. HEART: First and second heart sounds are normal; no edema. LUNGS: Respiratory rate normal; clear to auscultation. ABDOMEN: Soft, minimal epigastric tenderness, liver spleen not palpable, no masses palpable. PSYCH: Alert and oriented x3; mood and affect normal. MUSCULAR skeletal: Evidence of OA NEUROLOGICAL: Cranial nerves grossly intact; no facial asymmetry, power and sensation grossly intact. LYMPHATICS: No lymph nodes palpable in the axilla and neck INVESTIGATIONS, reviewed in the clinical context: White count 9.4 hemoglobin 13.4 platelets 221 pressure 4.7 creatinine 0.59 Troponin I less than 0.0122 EKG tracing personally reviewed by me-sinus rhythm Abdominal ultrasound-suggestive of fatty infiltrate Chest x-ray film personally reviewed by me-lung rivas clear Assessment: -Anterior chest wall pain with not cardiac features. Given her age and comorbidities rule out a cardiac cause initial cardiac enzymes are negative. -Acute gastroenteritis possibly viral -Hyperlipidemia -Essential hypertension -Primary osteoarthritis -Hypothyroid -Obesity BMI 34.5 -Non-alcoholic steatohepatitis Plan: Home medications resumed. Lovenox for DVT prophylaxis. Cardiology was consult ed. We'll put the patient on a full liquid diet. IV fluids. Care was discussed with the patient question were answered. Past Medical History Past Medical History: Cancer, Hyperlipidemia, Hypertension, Osteoarthritis (OA), Thyroid Disorder Additional Past Medical History / Comment(s): L breast cancer with mastectomy, thyroid cancer, History of Any Multi-Drug Resistant Organisms: None Reported Past Surgical History: Breast Surgery, Cholecystectomy, Hysterectomy Additional Past Surgical History / Comment(s): Partial thyroidectomy, EGD, 1/2 gastrectomy due to ulcers, L breast mastectomy. Past Anesthesia/Blood Transfusion Reactions: No Reported Reaction Past Psychological History: No Psychological Hx Reported Smoking Status: Former smoker Past Alcohol Use History: None Reported Past Drug Use History: None Reported - Past Family History Father History Unknown: Yes Additional Family Medical History / Comment(s): Father when pt was 1 yrs old. Mother Family Medical History: Coronary Artery Disease (CAD), Osteoarthritis (OA), Thyroid Disorder Additional Family Medical History / Comment(s): Enlarged heart. Sister(s) Family Medical History: Cancer Additional Family Medical History / Comment(s): breast Medications and Allergies Home Medications Medication Instructions Recorded Confirmed Type Enalapril [Vasotec] 20 mg PO BID 10/18/14 03/02/20 History Metoprolol Tartrate [Lopressor] 50 mg PO BID 10/18/14 03/02/20 History Levothyroxine Sodium [Synthroid] 50 mcg PO DAILY 12/11/15 03/02/20 History fentaNYL 50MCG/HR PATCH [Duragesic 1 patch TRANSDERM Q72H 08/16/16 03/02/20 History 50MCG/HR] Atorvastatin [Lipitor] 5 mg PO DAILY 08/18/19 03/02/20 History cloNIDine HCL [Catapres] 0.1 mg PO HS 10/09/19 03/02/20 History Cyanocobalamin (Vitamin B-12) 2,000 mcg PO DAILY 03/02/20 03/02/20 History [Vitamin B-12] HYDROcodone/APAP 10-325MG [[place] 1 tab PO Q8H PRN 03/02/20 03/02/20 History 10-325] Allergies Allergy/AdvReac Type Severity Reaction Status Date / Time Iodinated Contrast Media Allergy Severe Rash/Hives Verified 03/02/20 10:34 [Iodinated Contrast Media - IV Dye] iodine Allergy Rash/Hives Verified 03/02/20 10:34 pineapple Allergy SORE IN Verified 03/02/20 10:34 MOUTH shellfish derived Allergy SEVERE Verified 03/02/20 10:34 VOMITING Physical Exam Vitals: Vital Signs Temp Pulse Resp BP Pulse Ox 03/02/20 11:00 98.0 F 57 L 18 170/67 03/02/20 10:00 57 L 17 158/74 97 03/02/20 09:30 54 L 18 98 03/02/20 08:22 98.5 F 65 18 189/70 98 Intake and Output 03/01/20 03/02/20 03/02/20 22:59 06:59 14:59 Other: Weight 99.79 kg Results CBC & Chem 7: 03/02/20 08:59 03/02/20 08:59 Labs: Abnormal Lab Results - Last 24 Hours (Table) 03/02/20 Range/Units 08:59 Glucose 173 H (74-99) mg/dL
[2020-03-02] MEDS ORDERED: cloNIDine HCL 0.1 MG TAB PO SCH (21:00)
[2020-03-02] MEDS: HYDROcodone/APAP 10-325MG 1 EACH TAB PO PRN (21:00)
[2020-03-02] MEDS: amLODIPine 5 MG TAB PO SCH (21:04)
[2020-03-02] MEDS: ENOXAPARIN 40 MG/0.4 ML SYRINGE SQ SCH (21:07)
[2020-03-02] MEDS: LACTATED RINGERS 1,000 ML IV SCH (21:08)
[2020-03-02] MEDS ORDERED: diphenhydrAMINE 25 MG CAP PO PRN (21:26)
[2020-03-02] MEDS: CALCIUM CARBONATE LIQUID 500 MG/5 ML CUP PO SCH (22:02)
[2020-03-03 03:08] LABS: Cholesterol 176 mg/dL (<200); HDL Cholesterol 53 mg/dL (40-60); LDL Cholesterol,Calculated 91 mg/dL (0-99); Triglycerides 160 mg/dL (<150)
[2020-03-03] MEDS: amLODIPine 5 MG TAB PO SCH (06:04)
[2020-03-03] MEDS: ATORVASTATIN 10 MG TAB PO SCH (06:05)
[2020-03-03] MEDS: METOPROLOL TARTRATE 50 MG TAB PO SCH (06:05)
[2020-03-03] MEDS: LEVOTHYROXINE 50 MCG TAB PO SCH (06:06)
[2020-03-03] MEDS: LISINOPRIL 20 MG TAB PO SCH (06:06)
[2020-03-03] MEDS: HYDROcodone/APAP 10-325MG 1 EACH TAB PO PRN (06:08)
[2020-03-03] MEDS: LACTATED RINGERS 1,000 ML IV SCH (06:23)
[2020-03-03] MEDS: CALCIUM CARBONATE LIQUID 500 MG/5 ML CUP PO SCH ×2 (06:23→12:37)
--- NOTE | 2020-03-03 08:45 | ECHOF ---
Referral Reason:chest pain MEASUREMENTS -------- HEIGHT: 170.2 cm WEIGHT: 99.8 kg BP: IVSd: 1.3 cm (0.6 - 1.1) LVIDd: 4.1 cm (3.9 - 5.3) LVPWd: 1.5 cm (0.6 - 1.1) IVSs: 1.9 cm LVIDs: 2.3 cm LVPWs: 1.8 cm LAESV Index (A-L): 15.53 ml/m Ao Diam: 2.7 cm (2.0 - 3.7) AV Cusp: 1.4 cm (1.5 - 2.6) LA Diam: 4.2 cm (2.7 - 3.8) MV EXCURSION: 12.842 mm (> 18.000) MV EF SLOPE: 118 mm/s (70 - 150) EPSS: 1.6 cm MV E Kennedy: 0.78 m/s MV DecT: 214 ms MV A Kennedy: 0.89 m/s MV E/A Ratio: 0.88 AR PHT: 411 ms RAP: 5.00 mmHg RVSP: 10.02 mmHg FINDINGS -------- Sinus rhythm. This was a technically difficult study with suboptimal views. The left ventricular size is normal. There is mild concentric left ventricular hypertrophy. Overa ll left ventricular systolic function is normal with, an EF between 55 - 60 %. The diastolic fillin g pattern is normal for the age of the patient 10.44. The right ventricle is normal in size. Normal LA size by volume 22+/-6 ml/m2. The right atrial size is normal. There is mild aortic valve sclerosis. Mild mitral annular calcification present. Mild mitral regurgitation is present. The tricuspid valve appears structurally normal. Mild tricuspid regurgitation present. Right vent ricular systolic pressure is normal at < 35 mmHg. The pulmonic valve was not well visualized. There is no pulmonic regurgitation present. The aortic root size is normal. IVC Not well visulized. There is no pericardial effusion. CONCLUSIONS -------- 1. There is mild concentric left ventricular hypertrophy. 2. Overall left ventricular systolic function is normal with, an EF between 55 - 60 %. 3. The diastolic filling pattern is normal for the age of the patient 10.44 4. Normal LA size by volume 22+/-6 ml/m2. 5. There is mild aortic valve sclerosis. 6. Mild mitral annular calcification present. 7. Mild mitral regurgitation is present. 8. Mild tricuspid regurgitation present. ASSOCIATE SOFTWARE DEVELOPER: Bee Mclean RDCS
[2020-03-03] MEDS ORDERED: ASPIRIN 325 MG TAB PO SCH (09:00)
[2020-03-03 09:06] VITALS: RESP 18; TEMP 98.1
--- NOTE | 2020-03-03 10:36 | P.PN ---
Subjective Progress Note Date: 03/03/20 This is a pleasant 79-year-old female with documented history of hypertension, hyperlipidemia, prior history of breast cancer and thyroid cancer, patient also has history of diet-controlled diabetes. She presented to the hospital on this occasion with multiple symptoms, including a discomfort in the upper chest region, into the side of her throat, though symptoms lasted for a few minutes and dissipated. Subsequently, patient became quite nauseated and had several bouts of loose stools. She had no vomiting episodes but did have several episodes of diarrhea. She's also having significant gas complaints and abdominal discomfort. Blood pressure 182/70 with a heart rate in the 60s, afebr ile. Laboratory data was reviewed, white blood cell count 9.4, hemoglobin 13.4, platelet count 221. Sodium 138, potassium 4.7, BUN 14, creatinine 0.5. Troponin 0.012, TSH 1.1, proBNP 418. At the time of my examination the patient states she has been very dry mouth, lack of appetite today, still having some abdominal bloating and discomfort. Denies any chest pain. Chest x-ray did not reveal any evidence of any acute disease. EKG shows a normal sinus rhythm with no acute changes. 02/01/2020 Patient seen and examined this morning, no further episodes of diarrhea, denies any further chest discomfort. She did complain of a headache this morning, mild bloating persists in her abdomen. Blood pressure was quite elevated through the night, patient did receive an additional dose of Norvasc. I am with Doppler study revealed a normal left ventricular systolic function. Blood pressure 1 60/80 with a heart rate in the 60s this morning. Objective - Vital Signs Vital signs: Vital Signs Temp 98.1 F 03/03/20 08:00 Pulse 64 03/03/20 08:00 Resp 18 03/03/20 08:00 BP 163/84 03/03/20 08:00 Pulse Ox 96 03/03/20 08:00 Intake & Output 03/02/20 03/03/20 03/03/20 18:59 06:59 18:59 Intake Total 222 Balance 222 Weight 99.79 kg 102.3 kg Intake: Oral 222 Other: # Voids 2 2 - Exam PHYSICAL EXAMINATION: GENERAL: 79-year-old female in no acute distress at the time of my examination HEENT: Head is atraumatic, normocephalic. Pupils equal, round. Sclera anicteric. Conjunctiva are clear. Mucous membranes of the mouth are moist. Neck is supple. There is no elevated jugular venous pressure. No carotid bruit is heard. HEART EXAMINATION: Heart S1, S2 normal. No murmur or gallop heard. CHEST EXAMINATION: Lungs are clear to auscultation and precussion. No chest wall tenderness is noted on palpation or with deep breathing. ABDOMEN: Soft, mild generalized tenderness and bloating . Bowel sounds are heard. No organomegaly noted. EXTREMITIES: 2+ peripheral pulses with no evidence of peripheral edema and no ca lf tenderness noted. NEUROLOGIC patient is awake, alert and oriented 3 . . - Labs CBC & Chem 7: 03/02/20 08:59 03/02/20 08:59 Labs: Abnormal Lab Results - Last 24 Hours (Table) 03/02/20 Range/Units 08:59 Triglycerides 160 H (<150) mg/dL Assessment and Plan Plan: Assessment and plan #1 chest pain, atypical features for acute coronary syndrome. Troponins negative 3 . EKG shows a normal sinus rhythm with no acute changes. #2 symptoms of nausea, with diarrhea stools, bloating and gas. Probable hepatic steatosis on ultrasound. Patient did undergo an EGD and colonoscopy [place] [address] Nunez which revealed mild gastritis colonoscopy revealed a 1 mm descending colon polyp status post polypectomy sigmoid diverticulosis and small internal hemorrhoids. Patient denies any blood in her stool or black stool #3 accelerated hypertension #4 hyperlipidemia #5 history of breast cancer #6 history of thyroid cancer, for which the patient underwent a subtotal thyroid ectomy Plan Echocardiogram with Doppler study revealed a normal left ventricular systolic function. Norvasc has been increased to 5 mg one tablet by mouth twice a day. From cardiology's perspective, we will continue this patient now on her current medications. She can follow-up her BR Kwaku in the office 2-3 weeks post discharge. As an outpatient as stress test will be performed down the road. DNP note has been reviewed, I agree with a documented findings and plan of care. Patient was seen and examined.
[2020-03-03] MEDS: ENOXAPARIN 40 MG/0.4 ML SYRINGE SQ SCH (11:34)
[2020-03-03 13:28] VITALS: BP 160/74; PULSE 59
--- NOTE | 2020-03-03 21:59 | P.DS ---
Providers Date of admission: 03/02/20 10:26 Expected date of discharge: 03/03/20 Attending physician: Bill Cabrera Consults: 03/02/20 10:13 Consult Physician Urgent Consulting Provider: Luis Ruiz Consult Reason/Comments: chest discomfort, neck pain, nausea Do you want consulting provider notified?: Yes, Notify in am Primary care physician: Scott Jerry [facility] Course: Chief Complaint: Chest pain History of presenting complaint: This is a pleasant 7-year-old patient of Dr. Scott Rice. Chronic stable medical conditions include hyperlipidemia, hypertension, osteoarthritis, hypothyroid, left breast cancer with mastectomy. Patient also had a prior partial thyroidectomy and a partial gastrectomy due to ulcers. Patient for about 5 days as not been feeling good. Has had some upper abdominal discomfort. No obvious fevers. Also some diarrhea about 3 days. About 2 times a day. Loose. No blood. Significant nauseous been present. No cough or shortness of breath. Appetite is poor. Also for last 2 days has had chest pain. No sweating no dizziness no lightheadedness. Present for variable amount anteriorly. Not related to exertion. Admitted to the cardiac floor. Today-seen by cardiology. 2-D echocardiogram done. Amlodipine added. Cleared for discharge. Consultation: Dr. TUNDE Ames from cardiology. Physical examination: VITAL SIGNS: 98.1, 59, 18, 160/74, 94% on room air GENERAL: Sitting up, comfortable EYES: Pupils equal. Conjunctiva normal. HEENT: External appearance of nose and ears normal, oral cavity grossly normal. NECK: JVD not raised; masses not palpable. HEART: First and second heart sounds are normal; no edema. LUNGS: Respiratory rate normal; clear to auscultation. ABDOMEN: Soft, minimal epigastric tenderness, liver spleen not palpable, no masses palpable. PSYCH: Alert and oriented x3; mood and affect normal. MUSCULAR skeletal: Evidence of OA INVESTIGATIONS, reviewed in the clinical context: White count 9.4 hemoglobin 13.4 platelets 221 pressure 4.7 creatinine 0.59 Troponin I less than 0.0122 EKG tracing personally reviewed by me-sinus rhythm Abdominal ultrasound-suggestive of fatty infiltrate Chest x-ray film personally reviewed by me-lung rivas clear 2-D echo-EF 55-60% and no wall motion abnormality. Assessment: -Anterior chest wall pain with not cardiac features. Possibly musculoskeletal -Acute gastroenteritis possibly viral -Hyperlipidemia -Essential hypertension -Primary osteoarthritis -Hypothyroid -Obesity BMI 34.5 -Non-alcoholic fatty liver disease Disposition: Home Patient Condition at Discharge: Stable Plan - Discharge Summary Discharge Rx Participant: No New Discharge Prescriptions: New Aspirin 81 mg PO DAILY chew amLODIPine [Norvasc] 10 mg PO DAILY #30 tablet Famotidine [Pepcid] 20 mg PO BID #60 tablet Continue Metoprolol Tartrate [Lopressor] 50 mg PO BID Enalapril [Vasotec] 20 mg PO BID Levothyroxine Sodium [Synthroid] 50 mcg PO DAILY fentaNYL 50MCG/HR PATCH [Duragesic 50MCG/HR] 1 patch TRANSDERM Q72H Atorvastatin [Lipitor] 5 mg PO DAILY cloNIDine HCL [Catapres] 0.1 mg PO HS HYDROcodone/APAP 10-325MG [[place] 10-325] 1 tab PO Q8H PRN PRN Reason: Pain Cyanocobalamin (Vitamin B-12) [Vitamin B-12] 2,000 mcg PO DAILY Discharge Medication List Enalapril [Vasotec] 20 mg PO BID 10/18/14 [History] Metoprolol Tartrate [Lopressor] 50 mg PO BID 10/18/14 [History] Levothyroxine Sodium [Synthroid] 50 mcg PO DAILY 12/11/15 [History] fentaNYL 50MCG/HR PATCH [Duragesic 50MCG/HR] 1 patch TRANSDERM Q72H 08/16/16 [History] Atorvastatin [Lipitor] 5 mg PO DAILY 08/18/19 [History] cloNIDine HCL [Catapres] 0.1 mg PO HS 10/09/19 [History] Cyanocobalamin (Vitamin B-12) [Vitamin B-12] 2,000 mcg PO DAILY 03/02/20 [History] HYDROcodone/APAP 10-325MG [[place] 10-325] 1 tab PO Q8H PRN 03/02/20 [History] Aspirin 81 mg PO DAILY chew 03/03/20 [Rx] Famotidine [Pepcid] 20 mg PO BID #60 tablet 03/03/20 [Rx] amLODIPine [Norvasc] 10 mg PO DAILY #30 tablet 03/03/20 [Rx] Follow up Appointment(s)/Referral(s): Scott Jerry DO [Primary Care Provider] - 1 Week (Please call office for appointment, trying not to take appointments until March. ) Zoya Lazo MD [STAFF PHYSICIAN] - 03/22/20 2:15 pm (Accounting Technician seen in 2017. Possible outpatient stress test scheduled at this appointment.) Patient Instructions/Handouts: DASH Eating Plan (DC), Hypertension (DC) Discharge Disposition: HOME SELF-CARE
[2020-03-04] MEDS ORDERED: ASPIRIN 81 MG PO SCH (09:00)
== END 2020-03-03 14:37 | disposition home or self-care (01) ==
LOC: EC 08:19 → 3SCARD 10:26
PROVIDERS: ADMIT Hospitalist; ATTEND Hospitalist
DX: R07.89 Other chest pain (principal); K52.9 Noninfective gastroenteritis and colitis, unspecified; E78.5 Hyperlipidemia, unspecified; I10 Essential (primary) hypertension; M19.91 Primary osteoarthritis, unspecified site; M54.2 Cervicalgia; E66.9 Obesity, unspecified; Z68.34 Body mass index [BMI] 34.0-34.9, adult; E11.9 Type 2 diabetes mellitus without complications; R68.2 Dry mouth, unspecified; K75.81 Nonalcoholic steatohepatitis (NASH); E89.0 Postprocedural hypothyroidism; Z90.12 Acquired absence of left breast and nipple; Z90.3 Acquired absence of stomach [part of]; Z85.3 Personal history of malignant neoplasm of breast; Z85.850 Personal history of malignant neoplasm of thyroid; Z86.010 Personal history of colon polyps; Z87.11 Personal history of peptic ulcer disease; Z87.891 Personal history of nicotine dependence; Z87.19 Personal history of other diseases of the digestive system; Z90.710 Acquired absence of both cervix and uterus; Z90.49 Acquired absence of other specified parts of digestive tract; Z79.899 Other long term (current) drug therapy; Z79.890 Hormone replacement therapy; Z79.891 Long term (current) use of opiate analgesic; Z91.041 Radiographic dye allergy status; Z91.013 Allergy to seafood; Z91.018 Allergy to other foods; Z82.49 Family history of ischemic heart disease and other diseases of the circulatory system; Z82.61 Family history of arthritis; Z83.49 Family history of other endocrine, nutritional and metabolic diseases; Z80.3 Family history of malignant neoplasm of breast
CPT/HCPCS: 96372; 93005 ×2; 99285; 36415; 93306; 83880; 80061; 80053; 84443; 82150; 83690; 83735; 84484; 85025; 85610; 85730; 71046; 76705; G0378 ×2; J1650

== ENCOUNTER 2020-03-13 19:30 | Emergency (ER) | payer MEDICARE, BC ==
[2020-03-13 19:37] VITALS: TEMP 98.5
--- NOTE | 2020-03-13 19:56 | ED ---
General Adult HPI - General Chief complaint: Recheck/Abnormal Lab/Rx Stated complaint: Hypertension Time Seen by Provider: 03/13/20 19:35 Source: patient Mode of arrival: ambulatory Limitations: physical limitation - History of Present Illness Initial comments: Patient is an 79-year-old female past history of essential hypertension presents emergency Department with reported elevated blood pressures for the past 2 days. Patient states she was recently hospitalized and had some changes made her blood pressure medications. She takes amlodipine once daily, enalapril twice daily, Toprol twice daily and clonidine at bedtime. The clonidine was recently added during her last hospitalization. States she has been taking the medications as directed however over the past 2 days has had elevated blood pressures. It does cause her to have a headache and feel flushed in the face. States her current headache is graded 2 out of 10. No photophobia or visual changes. There is no sudden onset or maximally intensity. She hasn't taken anything for her headache. Denies fevers or chills. No nausea or vomiting. She states that she has taken all of her blood pressure medications except for clonidine today which she takes before bed. She took her blood pressure at home and it was noted to be 200 systolic. Upon presentation to the ER, it is 170 systolic. She denies any chest pain or shortness of breath. No unilateral numbness or weakness. There are no alleviating, precipitating or modifying factors - Related Data Home Medications Medication Instructions Recorded Confirmed Enalapril [Vasotec] 20 mg PO BID 10/18/14 03/13/20 Metoprolol Tartrate [Lopressor] 50 mg PO BID 10/18/14 03/13/20 Levothyroxine Sodium [Synthroid] 50 mcg PO DAILY 12/11/15 03/13/20 fentaNYL 50MCG/HR PATCH [Duragesic 1 patch TRANSDERM Q72H 08/16/16 03/13/20 50MCG/HR] Atorvastatin [Lipitor] 5 mg PO DAILY 08/18/19 03/13/20 cloNIDine HCL [Catapres] 0.1 mg PO HS 10/09/19 03/13/20 Cyanocobalamin (Vitamin B-12) 2,000 mcg PO DAILY 03/02/20 03/13/20 [Vitamin B-12] HYDROcodone/APAP 10-325MG [[place] 1 tab PO Q8H PRN 03/02/20 03/13/20 10-325] Previous Rx's Medication Instructions Recorded Aspirin 81 mg PO DAILY chew 03/03/20 Famotidine [Pepcid] 20 mg PO BID #60 tablet 03/03/20 amLODIPine [Norvasc] 10 mg PO DAILY #30 tablet 03/03/20 Allergies Allergy/AdvReac Type Severity Reaction Status Date / Time Iodinated Contrast Media Allergy Severe Rash/Hives Verified 03/13/20 20:51 [Iodinated Contrast Media - IV Dye] iodine Allergy Rash/Hives Verified 03/13/20 20:51 pineapple Allergy SORE IN Verified 03/13/20 20:51 MOUTH shellfish derived Allergy SEVERE Verified 03/13/20 20:51 VOMITING Review of Systems ROS Statement: Those systems with pertinent positive or pertinent negative responses have been documented in the HPI. ROS Other: All systems not noted in ROS Statement are negative. Past Medical History Past Medical History: Cancer, Hyperlipidemia, Hypertension, Osteoarthritis (OA), Thyroid Disorder Additional Past Medical History / Comment(s): L breast cancer with mastectomy, thyroid cancer, History of Any Multi-Drug Resistant Organisms: None Reported Past Surgical History: Breast Surgery, Cholecystectomy, Hysterectomy Additional Past Surgical History / Comment(s): Partial thyroidectomy, EGD, 1/2 gastrectomy due to ulcers, L breast mastectomy. Past Anesthesia/Blood Transfusion Reactions: No Reported Reaction Past Psychological History: No Psychological Hx Reported Smoking Status: Former smoker Past Alcohol Use History: None Reported Past Drug Use History: None Reported - Past Family History Father History Unknown: Yes Additional Family Medical History / Comment(s): Father when pt was 1 yrs old. Mother Family Medical History: Coronary Artery Disease (CAD), Osteoarthritis (OA), Thyroid Disorder Additional Family Medical History / Comment(s): Enlarged heart. Sister(s) Family Medical History: Cancer Additional Family Medical History / Comment(s): breast General Exam Limitations: physical limitation General appearance: alert, in no apparent distress Head exam: Present: atraumatic, normocephalic, normal inspection Eye exam: Present: normal appearance, PERRL, EOMI. Absent: scleral icterus, conjunctival injection, periorbital swelling ENT exam: Present: normal exam, mucous membranes moist Neck exam: Present: normal inspection. Absent: tenderness, meningismus, lymphadenopathy Respiratory exam: Present: normal lung sounds bilaterally. Absent: respiratory distress, wheezes, rales, rhonchi, stridor Cardiovascular Exam: Present: regular rate, normal rhythm, normal heart sounds. Absent: systolic murmur, diastolic murmur, rubs, gallop, clicks GI/Abdominal exam: Present: soft, normal bowel sounds. Absent: distended, tenderness, guarding, rebound, rigid Extremities exam: Present: normal inspection, full ROM, normal capillary refill. Absent: tenderness, pedal edema, joint swelling, calf tenderness Back exam: Present: normal inspection Neurological exam: Present: alert, oriented X3, CN II-XII intact Psychiatric exam: Present: normal affect, normal mood Skin exam: Present: warm, dry, intact, normal color. Absent: rash Course Vital Signs 03/13/20 03/13/20 03/13/20 19:34 20:58 21:04 Temperature 98.5 F Pulse Rate 70 68 68 Respiratory 17 18 20 Rate Blood Pressure 177/71 176/68 159/98 O2 Sat by Pulse 99 97 Oximetry 03/13/20 21:55 Temperature Pulse Rate 70 Respiratory 17 Rate Blood Pressure O2 Sat by Pulse Oximetry EKG Findings - EKG Comments: EKG Findings:: EKG demonstrates a normal sinus rhythm with a ventricular rate of 65. CA interval 194. QRS 12. Qtc 426. No acute ST segment elevations or depressions concerning for ischemic changes. Medical Decision Making - Medical Decision Making Upon arrival the patient is placed into room 6. A thorough history and physical exam was performed. Laboratory studies were conducted for evaluation of worseni ng hypertension. I did recommend a CT of the patient's head however she refused. The patient blood pressure is noted to be 177/71 systolic upon arrival. I did discuss her care with Dr. Zhao who is on-call for Dr. Rice who is her primary care doctor. He does request that I should increase the patient's clonidine to twice daily. I did inform her that she should take the new dose in the afternoon and continue taking her dose at bedtime. Call Dr. Rice's office in the morning to inform him of the medication change. The patient was agreeable with this and eager to leave. Blood pressure was noted to be 159/98 prior to discharge, without any medications provided in the ED. I inst ructed her to take her nighttime dose of her clonidine when she gets home. She is to keep a log of her blood pressures in order to better manage her medications in the future with her PCP. Return to the emergency room for any new or worsening symptoms. Patient agreed to the treatment plan was discharged home in stable condition - Lab Data Result diagrams: 03/13/20 20:54 03/13/20 20:54 Lab Results 03/13/20 03/13/20 03/13/20 Range/Units 20:54 20:54 20:54 WBC 9.9 (3.8-10.6) k/uL RBC 4.66 (3.80-5.40) m/uL Hgb 13.7 (11.4-16.0) gm/dL Hct 40.4 (34.0-46.0) % MCV 86.6 (80.0-100.0) fL MCH 29.3 (25.0-35.0) pg MCHC 33.9 (31.0-37.0) g/dL RDW 12.1 (11.5-15.5) % Plt Count 260 (150-450) k/uL Neutrophils % 70 % Lymphocytes % 20 % Monocytes % 6 % Eosinophils % 2 % Basophils % 0 % Neutrophils # 7.0 (1.3-7.7) k/uL Lymphocytes # 2.0 (1.0-4.8) k/uL Monocytes # 0.6 (0-1.0) k/uL Eosinophils # 0.2 (0-0.7) k/uL Basophils # 0.0 (0-0.2) k/uL PT 9.7 (9.0-12.0) sec INR 0.9 (<1.2) APTT 19.6 L (22.0-30.0) sec Sodium 136 L (137-145) mmol/L Potassium 4.6 (3.5-5.1) mmol/L Chloride 103 (98-107) mmol/L Carbon Dioxide 23 (22-30) mmol/L Anion Gap 10 mmol/L BUN 17 (7-17) mg/dL Creatinine 0.55 (0.52-1.04) mg/dL Est GFR (CKD-EPI)AfAm >90 (>60 ml/min/1.73 sqM) Est GFR (CKD-EPI)NonAf 89 (>60 ml/min/1.73 sqM) Glucose 134 H (74-99) mg/dL Calcium 9.6 (8.4-10.2) mg/dL Total Bilirubin 0.5 (0.2-1.3) mg/dL AST 26 (14-36) U/L ALT 18 (4-34) U/L Alkaline Phosphatase 51 (38-126) U/L Troponin I (0.000-0.034) ng/mL Total Protein 8.1 (6.3-8.2) g/dL Albumin 4.9 (3.5-5.0) g/dL 03/13/20 Range/Units 20:54 WBC (3.8-10.6) k/uL RBC (3.80-5.40) m/uL Hgb (11.4-16.0) gm/dL Hct (34.0-46.0) % MCV (80.0-100.0) fL MCH (25.0-35.0) pg MCHC (31.0-37.0) g/dL RDW (11.5-15.5) % Plt Count (150-450) k/uL Neutrophils % % Lymphocytes % % Monocytes % % Eosinophils % % Basophils % % Neutrophils # (1.3-7.7) k/uL Lymphocytes # (1.0-4.8) k/uL Monocytes # (0-1.0) k/uL Eosinophils # (0-0.7) k/uL Basophils # (0-0.2) k/uL PT (9.0-12.0) sec INR (<1.2) APTT (22.0-30.0) sec Sodium (137-145) mmol/L Potassium (3.5-5.1) mmol/L Chloride (98-107) mmol/L Carbon Dioxide (22-30) mmol/L Anion Gap mmol/L BUN (7-17) mg/dL Creatinine (0.52-1.04) mg/dL Est GFR (CKD-EPI)AfAm (>60 ml/min/1.73 sqM) Est GFR (CKD-EPI)NonAf (>60 ml/min/1.73 sqM) Glucose (74-99) mg/dL Calcium (8.4-10.2) mg/dL Total Bilirubin (0.2-1.3) mg/dL AST (14-36) U/L ALT (4-34) U/L Alkaline Phosphatase (38-126) U/L Troponin I <0.012 (0.000-0.034) ng/mL Total Protein (6.3-8.2) g/dL Albumin (3.5-5.0) g/dL Disposition Clinical Impression: Hypertension, Headache Disposition: HOME SELF-CARE Condition: Stable Instructions (If sedation given, give patient instructions): Chronic Hypertension (DC) Additional Instructions: Please call your doctor tomorrow to instruct him of the change that was made to your blood pressure medications. Take your clonidine twice daily. Take it once in the afternoon and before bedtime. Keep a log of your blood pressures. Return to the emergency room for any worsening symptoms Is patient prescribed a controlled substance at d/c from ED?: No Referrals: Scott Jerry DO [Primary Care Provider] - 1-2 days Time of Disposition: 21:50
[2020-03-13 21:04] VITALS: BP 159/98
[2020-03-13 21:12] LABS: ALT 18 U/L (4-34); AST 26 U/L (14-36); African American GFR (CKD) >90 (>60 ml/min/1.73 sqM); Albumin 4.9 g/dL (3.5-5.0); Alkaline Phosphatase 51 U/L (38-126); Anion Gap 10 mmol/L; Blood Urea Nitrogen 17 mg/dL (7-17); Calcium 9.6 mg/dL (8.4-10.2); Carbon Dioxide 23 mmol/L (22-30); Chloride 103 mmol/L (98-107); Glucose 134 mg/dL (74-99); Non-African American GFR(CKD) 89 (>60 ml/min/1.73 sqM); Potassium 4.6 mmol/L (3.5-5.1); Sodium 136 mmol/L (137-145); Total Bilirubin 0.5 mg/dL (0.2-1.3); Total Protein 8.1 g/dL (6.3-8.2)
[2020-03-13 21:18] LABS: Basophils % (A) 0 %; Eosinophils # (A) 0.2 k/uL (0-0.7); Eosinophils % (A) 2 %; HCT 40.4 % (34.0-46.0); HGB 13.7 gm/dL (11.4-16.0); Lymphocytes % (A) 20 %; MCH 29.3 pg (25.0-35.0); MCHC 33.9 g/dL (31.0-37.0); MCV 86.6 fL (80.0-100.0); Mean Platelet Volume 7.1; Monocytes # (A) 0.6 k/uL (0-1.0); Monocytes % (A) 6 %; Neutrophils % (A) 70 %; Platelet Count 260 k/uL (150-450); RBC 4.66 m/uL (3.80-5.40); RDW 12.1 % (11.5-15.5); WBC 9.9 k/uL (3.8-10.6)
[2020-03-13 21:23] LABS: INR 0.9 (<1.2); Prothrombin Time 9.7 sec (9.0-12.0)
[2020-03-13 21:28] LABS: Partial Thromboplastin Time 19.6 sec (22.0-30.0)
[2020-03-13 22:01] VITALS: PULSE 70; RESP 17
== END 2020-03-13 21:55 | disposition home or self-care (01) ==
LOC: EC 19:30
DX: I10 Essential (primary) hypertension (principal); R51 Headache; E78.5 Hyperlipidemia, unspecified; M19.90 Unspecified osteoarthritis, unspecified site; Z79.899 Other long term (current) drug therapy; Z79.890 Hormone replacement therapy; Z91.041 Radiographic dye allergy status; Z91.02 Food additives allergy status; Z91.013 Allergy to seafood; Z91.048 Other nonmedicinal substance allergy status; Z85.3 Personal history of malignant neoplasm of breast; Z85.850 Personal history of malignant neoplasm of thyroid; Z90.12 Acquired absence of left breast and nipple; Z90.89 Acquired absence of other organs; Z87.891 Personal history of nicotine dependence; Z82.49 Family history of ischemic heart disease and other diseases of the circulatory system
CPT/HCPCS: 36415; 80053; 84484; 85025; 85610; 85730; 99283

== ENCOUNTER 2020-03-14 18:33 | Emergency (ER) | payer MEDICARE, BC ==
[2020-03-14 18:44] VITALS: RESP 18; TEMP 98
[2020-03-14 20:00] VITALS: BP 155/65; PULSE 65
--- NOTE | 2020-03-14 20:04 | ED ---
Recheck HPI - General Source: patient Mode of arrival: wheelchair Limitations: no limitations <Nathaly Manriquez - Last Filed: 03/14/20 23:56> <Ronnie Coulter - Last Filed: 03/15/20 00:05> - General Chief Complaint: Recheck/Abnormal Lab/Rx Stated Complaint: high blood pressure Time Seen by Provider: 03/14/20 18:46 - History of Present Illness Initial Comments: 79-year-old female patient presents to the emergency department today for evaluation of elevated blood pressures. Patient states that over the last zainab ral days she has been experiencing elevation in her blood pressure. States at times her systolic has gotten to 200 however today 180 is the highest she has seen. States that she takes her blood pressure around every 4 hours. States with that she does experience some flushing to her cheeks and mild headache. States her headache feels like a pressure type pain. Denies any blurred or double vision. Denies nausea or vomiting. States she does have decreased appetite. Patient is quite anxious about this. She was evaluated in the emergency department yesterday for the same thing. She did undergo extensive evaluation including lab work and EKG. She did decline CT of her brain yesterday. Patient is taking enalapril 20 mg, clonidine 0.1 mg, metoprolol, and Norvasc 10 mg. Patient did take an additional dose of her clonidine today around 12:00 this afternoon. States this did lower her blood pressure for a short period of time but then it raised again this evening. She denies any bill st pain or shortness of breath. States she is having normal bowel movements and urination. Denies weakness, numbness, or tingling to her extremities. Patient denies any recent rash, fever, chills, cough, abdominal pain, nausea, vomiting, diarrhea, constipation, back pain, hematuria, dysuria, urinary urgency, urinary frequency, or any other complaints. (Nathaly Manriquez) - Related Data Home Medications Medication Instructions Recorded Confirmed Enalapril [Vasotec] 20 mg PO BID 10/18/14 03/13/20 Metoprolol Tartrate [Lopressor] 50 mg PO BID 10/18/14 03/13/20 Levothyroxine Sodium [Synthroid] 50 mcg PO DAILY 12/11/15 03/13/20 fentaNYL 50MCG/HR PATCH [Duragesic 1 patch TRANSDERM Q72H 08/16/16 03/13/20 50MCG/HR] Atorvastatin [Lipitor] 5 mg PO DAILY 08/18/19 03/13/20 cloNIDine HCL [Catapres] 0.1 mg PO HS 10/09/19 03/13/20 Cyanocobalamin (Vitamin B-12) 2,000 mcg PO DAILY 03/02/20 03/13/20 [Vitamin B-12] HYDROcodone/APAP 10-325MG [[place] 1 tab PO Q8H PRN 03/02/20 03/13/20 10-325] Previous Rx's Medication Instructions Recorded Aspirin 81 mg PO DAILY chew 03/03/20 Famotidine [Pepcid] 20 mg PO BID #60 tablet 03/03/20 amLODIPine [Norvasc] 10 mg PO DAILY #30 tablet 03/03/20 Allergies Allergy/AdvReac Type Severity Reaction Status Date / Time Iodinated Contrast Media Allergy Severe Rash/Hives Verified 03/13/20 20:51 [Iodinated Contrast Media - IV Dye] iodine Allergy Rash/Hives Verified 03/13/20 20:51 pineapple Allergy SORE IN Verified 03/13/20 20:51 MOUTH shellfish derived Allergy SEVERE Verified 03/13/20 20:51 VOMITING Review of Systems ROS Other: All systems not noted in ROS Statement are negative. <Nathaly Manriquez - Last Filed: 03/14/20 23:56> ROS Other: All systems not noted in ROS Statement are negative. <Ronnie Coulter - Last Filed: 03/15/20 00:05> ROS Statement: Those systems with pertinent positive or pertinent negative responses have been documented in the HPI. Past Medical History Past Medical History: Cancer, Hyperlipidemia, Hypertension, Osteoarthritis (OA), Thyroid Disorder Additional Past Medical History / Comment(s): L breast cancer with mastectomy, thyroid cancer, History of Any Multi-Drug Resistant Organisms: None Reported Past Surgical History: Breast Surgery, Cholecystectomy, Hysterectomy Additional Past Surgical History / Comment(s): Partial thyroidectomy, EGD, 1/2 gastrectomy due to ulcers, L breast mastectomy. Past Anesthesia/Blood Transfusion Reactions: No Reported Reaction Past Psychological History: No Psychological Hx Reported Smoking Status: Former smoker Past Alcohol Use History: None Reported Past Drug Use History: None Reported - Past Family History Father History Unknown: Yes Additional Family Medical History / Comment(s): Father when pt was 1 yrs old. Mother Family Medical History: Coronary Artery Disease (CAD), Osteoarthritis (OA), Thyroid Disorder Additional Family Medical History / Comment(s): Enlarged heart. Sister(s) Family Medical History: Cancer Additional Family Medical History / Comment(s): breast <Nathaly Manriquez - Last Filed: 03/14/20 23:56> General Exam Limitations: no limitations General appearance: alert, in no apparent distress, other (This is a well- developed, well-nourished adult female patient in no acute distress. Vital signs upon presentation are temperature 98.0F, pulse 71, respirations 18, blood pressure 180/73, pulse ox 98% on room air.) Eye exam: Present: normal appearance, PERRL, EOMI. Absent: scleral icterus, conjunctival injection, periorbital swelling ENT exam: Present: normal exam, normal oropharynx, mucous membranes moist Respiratory exam: Present: normal lung sounds bilaterally. Absent: respiratory distress, wheezes, rales, rhonchi, stridor Cardiovascular Exam: Present: regular rate, normal rhythm, normal heart sounds. Absent: systolic murmur, diastolic murmur, rubs, gallop, clicks GI/Abdominal exam: Present: soft, normal bowel sounds. Absent: distended, tenderness, guarding, rebound, rigid Neurological exam: Present: alert, oriented X3, CN II-XII intact Psychiatric exam: Present: normal affect, normal mood Skin exam: Present: warm, dry, intact, normal color. Absent: rash <Nathaly Manriquez - Last Filed: 03/14/20 23:56> Course <Ronnie Coulter - Last Filed: 03/15/20 00:05> Vital Signs 03/14/20 03/14/20 18:42 19:54 Temperature 98.0 F Pulse Rate 71 65 Respiratory 18 18 Rate Blood Pressure 180/73 155/65 O2 Sat by Pulse 98 99 Oximetry - Reevaluation(s) Reevaluation #1: 03/15/20 00:04 PA supervision: I personally did evaluate this patient she did present with complaints of elevated blood pressure she is otherwise asymptomatic or. Workup thus far is negative for blood pressure is return to more normal numbers. She is to continue with current medications follow-up with her doctor outpatient return when necessary she is in agreement with this at this time. (Ronnie Coulter) Medical Decision Making <Nathaly Manriquez - Last Filed: 03/14/20 23:56> - Medical Decision Making 79-year-old female patient presents to the emergency department today for evaluation of elevated blood pressures. Patient has been taking her medication as directed and did take an additional clonidine today as directed by the emergency physician last night. Physical examination is unremarkable. She is experiencing mild facial flushing and mild headache. I did review labs, EKG and chest x-ray from yesterday which were relatively unremarkable. Patient's blood pressure did decrease here in the department. She does have a couple being discharged home at this time. She is instructed to follow up with her primary care physician for recheck in 1-2 days. She is urged to keep a log of her blood pressures. Return parameters were discussed in detail. She verbalizes understanding and agrees with this plan. (Nathaly Manriquez) Disposition Is patient prescribed a controlled substance at d/c from ED?: No Time of Disposition: 20:04 <Nathaly Manriquez - Last Filed: 03/14/20 23:56> <Ronnie Coulter - Last Filed: 03/15/20 00:05> Clinical Impression: High blood pressure Disposition: HOME SELF-CARE Condition: Good Instructions (If sedation given, give patient instructions): Chronic Hypertension (ED) Additional Instructions: Continue your medications as directed. Follow-up through primary care physician for recheck as soon as possible. Return to the emergency department immediately for any new, worsening, or concerning symptoms. Referrals: Scott Jerry DO [Primary Care Provider] - 1-2 days
== END 2020-03-14 20:15 | disposition home or self-care (01) ==
LOC: EC 18:33
DX: I10 Essential (primary) hypertension (principal); E07.9 Disorder of thyroid, unspecified; E78.5 Hyperlipidemia, unspecified; Z79.890 Hormone replacement therapy; Z79.899 Other long term (current) drug therapy; Z91.041 Radiographic dye allergy status; Z91.048 Other nonmedicinal substance allergy status; Z91.018 Allergy to other foods; Z91.013 Allergy to seafood; Z87.891 Personal history of nicotine dependence; Z85.850 Personal history of malignant neoplasm of thyroid; Z85.3 Personal history of malignant neoplasm of breast; Z90.12 Acquired absence of left breast and nipple
CPT/HCPCS: 99282

== ENCOUNTER 2020-03-22 17:05 | Observation (INO) | payer MEDICARE, BC ==
--- NOTE | 2020-03-22 17:45 | XR ---
EXAMINATION TYPE: XR chest 2V DATE OF EXAM: 03/22/2020 COMPARISON: CTA chest August 18, 2019. Most recent chest x-ray March 02, 2020. HISTORY: Chest pain and hypertension. TECHNIQUE: Frontal and lateral views of the chest are obtained. FINDINGS: There is some chronic parenchymal change bilaterally without suspicious new focal air spac e opacity, pleural effusion, or pneumothorax seen. The cardiac silhouette size remains mildly enlarg ed. Multilevel spurring in the thoracic spine is again seen. IMPRESSION: Chronic changes and mild cardiomegaly without acute pulmonary process.
[2020-03-22] MEDS ORDERED: ASPIRIN 81 MG PO STA (18:00)
--- NOTE | 2020-03-22 18:03 | ED ---
General Adult HPI - General Chief complaint: Chest Pain Stated complaint: Hypertension, chest pain Time Seen by Provider: 03/22/20 17:20 Source: patient Mode of arrival: ambulatory Limitations: no limitations - History of Present Illness Initial comments: Dictation was produced using [employer] dictation software. please excuse any grammatical, word or spelling errors. This patient was cared for during a federal and state declared state of emergenc y secondary to Covid 19 Chief Complaint: 79-year-old female presents with chest pain. History of Present Illness: 79-year-old female she has past medical history of dyslipidemia hypertension. She presents with chest pain. Patient states she's been having on and off chest pain for several months. States that she has been worked up before however has not had a stress disorder. Patient has any coronary artery disease. She reports that her symptoms are worse with exertion. She does report that its substernal with radiation to the jaws. She denies any chest pain symptoms currently. Patient is also worried about her blood pressure. Denies any numbness tingling or paresthesias to the extremities. The ROS documented in this emergency department record has been reviewed and c onfirmed by me. Those systems with pertinent positive or negative responses have been documented in the HPI. All other systems are other negative and/or noncontributory. PHYSICAL EXAM: General Impression: Alert and oriented x3, not in acute distress HEENT: Normocephalic atraumatic, extra-ocular movements intact, pupils equal and reactive to light bilaterally, mucous membranes moist. Cardiovascular: Heart regular rate and rhythm Chest: Able to complete full sentences, no retractions, no tachypnea Abdomen: abdomen soft, non-tender, non-distended, no organomegaly Musculoskeletal: Pulses present and equal in all extremities, no peripheral edema Motor: no focal deficits noted Neurological: CN II-XII grossly intact, no focal motor or sensory deficits noted Skin: Intact with no visualized rashes Psych: Normal affect and mood ED course: 79 yo female presents with atypical chest pain typical features. There is concern of coronary artery disease given exertional history. As upon arrival are within acceptable limits. EKG does not suggest ST segment elevation AR. No findings of ischemia or infarction.Laboratory evaluation obtained. CBC unremarkable. Coag panel unremarkable. Metabolic panel is negative. Troponin is negative. Patient reevaluated at bedside. Patient stable medical condition. Patient be admitted for atypical chest pain with typical features. Given that there is an exertional component or some concern for acute coronary syndrome. Discussed patient case Dr. Cabrera who is willing to accept patients care. Given aspirin. EKG interpretation: Ventricular rate 64, sinus rhythm, QRS 110, QTc 418. No IL prolongation, no QTC prolongation, no ST or T-wave changes noted. EKG compared to 03/13/2020 showing no changes. Overall, this EKG is unremarkable - Related Data Home Medications Medication Instructions Recorded Confirmed Enalapril [Vasotec] 20 mg PO BID 10/18/14 03/13/20 Metoprolol Tartrate [Lopressor] 50 mg PO BID 10/18/14 03/13/20 Levothyroxine Sodium [Synthroid] 50 mcg PO DAILY 12/11/15 03/13/20 fentaNYL 50MCG/HR PATCH [Duragesic 1 patch TRANSDERM Q72H 08/16/16 03/13/20 50MCG/HR] Atorvastatin [Lipitor] 5 mg PO DAILY 08/18/19 03/13/20 cloNIDine HCL [Catapres] 0.1 mg PO HS 10/09/19 03/13/20 Cyanocobalamin (Vitamin B-12) 2,000 mcg PO DAILY 03/02/20 03/13/20 [Vitamin B-12] HYDROcodone/APAP 10-325MG [[place] 1 tab PO Q8H PRN 03/02/20 03/13/20 10-325] Previous Rx's Medication Instructions Recorded Aspirin 81 mg PO DAILY chew 03/03/20 Famotidine [Pepcid] 20 mg PO BID #60 tablet 03/03/20 amLODIPine [Norvasc] 10 mg PO DAILY #30 tablet 03/03/20 Allergies Allergy/AdvReac Type Severity Reaction Status Date / Time Iodinated Contrast Media Allergy Severe Rash/Hives Verified 03/22/20 17:17 [Iodinated Contrast Media - IV Dye] iodine Allergy Rash/Hives Verified 03/22/20 17:17 pineapple Allergy SORE IN Verified 03/22/20 17:17 MOUTH shellfish derived Allergy SEVERE Verified 03/22/20 17:17 VOMITING Review of Systems ROS Statement: Those systems with pertinent positive or pertinent negative responses have been documented in the HPI. ROS Other: All systems not noted in ROS Statement are negative. Past Medical History Past Medical History: Cancer, Hyperlipidemia, Hypertension, Osteoarthritis (OA), Thyroid Disorder Additional Past Medical History / Comment(s): L breast cancer with mastectomy, thyroid cancer, History of Any Multi-Drug Resistant Organisms: None Reported Past Surgical History: Breast Surgery, Cholecystectomy, Hysterectomy Additional Past Surgical History / Comment(s): Partial thyroidectomy, EGD, 1/2 gastrectomy due to ulcers, L breast mastectomy. Past Anesthesia/Blood Transfusion Reactions: No Reported Reaction Past Psychological History: No Psychological Hx Reported Smoking Status: Former smoker Past Alcohol Use History: None Reported Past Drug Use History: None Reported - Past Family History Father History Unknown: Yes Additional Family Medical History / Comment(s): Father when pt was 1 yrs old. Mother Family Medical History: Coronary Artery Disease (CAD), Osteoarthritis (OA), Thy roid Disorder Additional Family Medical History / Comment(s): Enlarged heart. Sister(s) Family Medical History: Cancer Additional Family Medical History / Comment(s): breast General Exam Limitations: no limitations Course Vital Signs 03/22/20 03/22/20 17:15 18:29 Temperature 98.5 F Pulse Rate 71 60 Respiratory 18 18 Rate Blood Pressure 141/62 145/60 O2 Sat by Pulse 98 98 Oximetry Medical Decision Making - Lab Data Result diagrams: 03/22/20 18:03 03/22/20 18:03 Lab Results 03/22/20 03/22/20 03/22/20 Range/Units 18:03 18:03 18:03 WBC 8.3 (3.8-10.6) k/uL RBC 4.21 (3.80-5.40) m/uL Hgb 12.9 (11.4-16.0) gm/dL Hct 37.1 (34.0-46.0) % MCV 88.2 (80.0-100.0) fL MCH 30.5 (25.0-35.0) pg MCHC 34.6 (31.0-37.0) g/dL RDW 12.2 (11.5-15.5) % Plt Count 232 (150-450) k/uL Neutrophils % 62 % Lymphocytes % 27 % Monocytes % 7 % Eosinophils % 2 % Basophils % 1 % Neutrophils # 5.2 (1.3-7.7) k/uL Lymphocytes # 2.2 (1.0-4.8) k/uL Monocytes # 0.6 (0-1.0) k/uL Eosinophils # 0.2 (0-0.7) k/uL Basophils # 0.0 (0-0.2) k/uL PT 10.3 (9.0-12.0) sec INR 1.0 (<1.2) APTT 21.0 L (22.0-30.0) sec Sodium 136 L (137-145) mmol/L Potassium 4.7 (3.5-5.1) mmol/L Chloride 101 (98-107) mmol/L Carbon Dioxide 25 (22-30) mmol/L Anion Gap 10 mmol/L BUN 17 (7-17) mg/dL Creatinine 0.73 (0.52-1.04) mg/dL Est GFR (CKD-EPI)AfAm >90 (>60 ml/min/1.73 sqM) Est GFR (CKD-EPI)NonAf 78 (>60 ml/min/1.73 sqM) Glucose 112 H (74-99) mg/dL Calcium 9.4 (8.4-10.2) mg/dL Magnesium 1.9 (1.6-2.3) mg/dL Total Bilirubin 0.6 (0.2-1.3) mg/dL AST 31 (14-36) U/L ALT 21 (4-34) U/L Alkaline Phosphatase 43 (38-126) U/L Troponin I (0.000-0.034) ng/mL Total Protein 7.4 (6.3-8.2) g/dL Albumin 4.4 (3.5-5.0) g/dL 03/22/20 Range/Units 18:03 WBC (3.8-10.6) k/uL RBC (3.80-5.40) m/uL Hgb (11.4-16.0) gm/dL Hct (34.0-46.0) % MCV (80.0-100.0) fL MCH (25.0-35.0) pg MCHC (31.0-37.0) g/dL RDW (11.5-15.5) % Plt Count (150-450) k/uL Neutrophils % % Lymphocytes % % Monocytes % % Eosinophils % % Basophils % % Neutrophils # (1.3-7.7) k/uL Lymphocytes # (1.0-4.8) k/uL Monocytes # (0-1.0) k/uL Eosinophils # (0-0.7) k/uL Basophils # (0-0.2) k/uL PT (9.0-12.0) sec INR (<1.2) APTT (22.0-30.0) sec Sodium (137-145) mmol/L Potassium (3.5-5.1) mmol/L Chloride (98-107) mmol/L Carbon Dioxide (22-30) mmol/L Anion Gap mmol/L BUN (7-17) mg/dL Creatinine (0.52-1.04) mg/dL Est GFR (CKD-EPI)AfAm (>60 ml/min/1.73 sqM) Est GFR (CKD-EPI)NonAf (>60 ml/min/1.73 sqM) Glucose (74-99) mg/dL Calcium (8.4-10.2) mg/dL Magnesium (1.6-2.3) mg/dL Total Bilirubin (0.2-1.3) mg/dL AST (14-36) U/L ALT (4-34) U/L Alkaline Phosphatase (38-126) U/L Troponin I <0.012 (0.000-0.034) ng/mL Total Protein (6.3-8.2) g/dL Albumin (3.5-5.0) g/dL Disposition Clinical Impression: Chest pain Disposition: ADMITTED IP TO THIS [facility] Condition: Fair Referrals: Scott Jerry DO [Primary Care Provider] - 1-2 days Decision Time: 19:07
[2020-03-22 18:30] LABS: Prothrombin Time 10.3 sec (9.0-12.0)
[2020-03-22 18:38] LABS: ALT 21 U/L (4-34); AST 31 U/L (14-36); African American GFR (CKD) >90 (>60 ml/min/1.73 sqM); Albumin 4.4 g/dL (3.5-5.0); Alkaline Phosphatase 43 U/L (38-126); Anion Gap 10 mmol/L; Blood Urea Nitrogen 17 mg/dL (7-17); Calcium 9.4 mg/dL (8.4-10.2); Carbon Dioxide 25 mmol/L (22-30); Chloride 101 mmol/L (98-107); Glucose 112 mg/dL (74-99); Magnesium 1.9 mg/dL (1.6-2.3); Non-African American GFR(CKD) 78 (>60 ml/min/1.73 sqM); Potassium 4.7 mmol/L (3.5-5.1); Sodium 136 mmol/L (137-145); Total Bilirubin 0.6 mg/dL (0.2-1.3); Total Protein 7.4 g/dL (6.3-8.2)
[2020-03-22 18:43] LABS: Basophils % (A) 1 %; Eosinophils # (A) 0.2 k/uL (0-0.7); Eosinophils % (A) 2 %; HCT 37.1 % (34.0-46.0); HGB 12.9 gm/dL (11.4-16.0); Lymphocytes # (A) 2.2 k/uL (1.0-4.8); Lymphocytes % (A) 27 %; MCH 30.5 pg (25.0-35.0); MCHC 34.6 g/dL (31.0-37.0); MCV 88.2 fL (80.0-100.0); Mean Platelet Volume 7.9; Monocytes # (A) 0.6 k/uL (0-1.0); Monocytes % (A) 7 %; Neutrophils # (A) 5.2 k/uL (1.3-7.7); Neutrophils % (A) 62 %; Platelet Count 232 k/uL (150-450); RBC 4.21 m/uL (3.80-5.40); RDW 12.2 % (11.5-15.5); WBC 8.3 k/uL (3.8-10.6)
[2020-03-22] MEDS ORDERED: NITROGLYCERIN SL TABS 0.4 MG TAB SUBLINGUAL PRN (19:04)
--- NOTE | 2020-03-22 20:35 | P.HPIM ---
History of Present Illness H&P Date: 03/22/20 Chief Complaint: Chest pain History of presenting complaint: This is a pleasant 79-year-old patient of Dr. Scott Rice. Chronic stable medical conditions include hyperlipidemia, hypertension, osteoarthritis, hypothyroid, left breast cancer with mastectomy. Patient also had a prior partial thyroidectomy and a partial gastrectomy due to ulcers. Patient now presents with having upper chest pressure sometimes going to the neck and jaw and some tingling of the left arm. Sometimes associated with shortness of breath. His been coming on and off for a few days. No dizziness no lightheadedness. Notices the symptoms to be worse with activity. Patient was here in early part of this month seen by cardiology, amlodipine was added and patient was discharged. Review of systems: GEN.: Tired EYES: None HEENT: None NECK: None RESPIRATORY: None CARDIOVASCULAR: As above GASTROINTESTINAL: As above GENITOURINARY: None MUSCULOSKELETAL: Joint pains LYMPHATICS: None HEMATOLOGICAL: None PSYCHIATRY: None NEUROLOGICAL: None Past medical history to include: Hyperlipidemia, hypertension, osteoarthritis, thyroid cancer with partial thyroidectomy, left breast cancer with mastectomy, partial gastrectomy due to ulcers Social history: Lives in a condo. Does use a walker. Did smoke for 10 years stopped in 1986. Less than half a pack a day. Physical examination: VITAL SIGNS: 98.6, 60, 16, 132/52, 98% on room air GENERAL: [BMI 34.5, laying in bed. EYES: Pupils equal. Conjunctiva normal. HEENT: External appearance of nose and ears normal, oral cavity grossly normal. NECK: JVD not raised; masses not palpable. HEART: First and second heart sounds are normal; no edema. LUNGS: Respiratory rate normal; clear to auscultation. ABDOMEN: Soft, no tenderness, liver spleen not palpable, no masses palpable. PSYCH: Alert and oriented x3; mood and affect normal. MUSCULAR skeletal: Evidence of OA NEUROLOGICAL: Cranial nerves grossly intact; no facial asymmetry, power and sensation grossly intact. LYMPHATICS: No lymph nodes palpable in the axilla and neck INVESTIGATIONS, reviewed in the clinical context: White count 8.3 hemoglobin 12.9 pressure 4.7 creatinine 0.73 Troponin I negative Coronavirus PCR-not detected EKG tracing personally reviewed by me-normal sinus rhythm Chest x-ray film personally reviewed by me-lung rivas clear 2-D echo EF 55-60% done 3 weeks ago Assessment: -Possible unstable angina with cardiac risk factors. -Hyperlipidemia -Essential hypertension -Primary osteoarthritis -Hypothyroid -Obesity BMI 34.5 -Non-alcoholic steatohepatitis Plan: Home medications resumed. Patient to continue with aspirin. Serial cardiac enzymes and place. Cardiology consulted. Care was discussed with the patient. Past Medical History Past Medical History: Cancer, Hyperlipidemia, Hypertension, Osteoarthritis (OA), Thyroid Disorder Additional Past Medical History / Comment(s): L breast cancer with mastectomy, thyroid cancer, History of Any Multi-Drug Resistant Organisms: None Reported Past Surgical History: Breast Surgery, Cholecystectomy, Hysterectomy Additional Past Surgical History / Comment(s): Partial thyroidectomy, EGD, 1/2 gastrectomy due to ulcers, L breast mastectomy. Past Anesthesia/Blood Transfusion Reactions: No Reported Reaction Past Psychological History: No Psychological Hx Reported Smoking Status: Former smoker Past Alcohol Use History: None Reported Past Drug Use History: None Reported - Past Family History Father History Unknown: Yes Additional Family Medical History / Comment(s): Father when pt was 1 yrs old. Mother Family Medical History: Coronary Artery Disease (CAD), Osteoarthritis (OA), Thyroid Disorder Additional Family Medical History / Comment(s): Enlarged heart. Sister(s) Family Medical History: Cancer Additional Family Medical History / Comment(s): breast Medications and Allergies Home Medications Medication Instructions Recorded Confirmed Type Enalapril [Vasotec] 20 mg PO BID 10/18/14 03/13/20 History Metoprolol Tartrate [Lopressor] 50 mg PO BID 10/18/14 03/13/20 History Levothyroxine Sodium [Synthroid] 50 mcg PO DAILY 12/11/15 03/13/20 History fentaNYL 50MCG/HR PATCH [Duragesic 1 patch TRANSDERM Q72H 08/16/16 03/13/20 History 50MCG/HR] Atorvastatin [Lipitor] 5 mg PO DAILY 08/18/19 03/13/20 History cloNIDine HCL [Catapres] 0.1 mg PO HS 10/09/19 03/13/20 History Cyanocobalamin (Vitamin B-12) 2,000 mcg PO DAILY 03/02/20 03/13/20 History [Vitamin B-12] HYDROcodone/APAP 10-325MG [[place] 1 tab PO Q8H PRN 03/02/20 03/13/20 History 10-325] Aspirin 81 mg PO DAILY chew 03/03/20 03/13/20 Rx Famotidine [Pepcid] 20 mg PO BID #60 tablet 03/03/20 03/13/20 Rx amLODIPine [Norvasc] 10 mg PO DAILY #30 tablet 03/03/20 03/13/20 Rx Allergies Allergy/AdvReac Type Severity Reaction Status Date / Time Iodinated Contrast Media Allergy Severe Rash/Hives Verified 03/22/20 17:17 [Iodinated Contrast Media - IV Dye] iodine Allergy Rash/Hives Verified 03/22/20 17:17 pineapple Allergy SORE IN Verified 03/22/20 17:17 MOUTH shellfish derived Allergy SEVERE Verified 03/22/20 17:17 VOMITING Physical Exam Vitals: Vital Signs Temp Pulse Resp BP Pulse Ox 03/22/20 20:00 98.6 F 60 16 132/52 98 03/22/20 19:21 61 16 126/52 03/22/20 18:29 60 18 145/60 98 03/22/20 17:15 98.5 F 71 18 141/62 98 Intake and Output 03/22/20 03/22/20 03/22/20 06:59 14:59 22:59 Other: Weight 99.79 kg Results CBC & Chem 7: 03/22/20 18:03 03/22/20 18:03 Labs: Abnormal Lab Results - Last 24 Hours (Table) 03/22/20 03/22/20 Range/Units 18:03 18:03 APTT 21.0 L (22.0-30.0) sec Sodium 136 L (137-145) mmol/L Glucose 112 H (74-99) mg/dL
[2020-03-22] MEDS ORDERED: cloNIDine HCL 0.1 MG TAB PO SCH (21:00)
[2020-03-22] MEDS ORDERED: ENOXAPARIN 40 MG/0.4 ML SYRINGE SQ SCH (21:00)
[2020-03-22] MEDS ORDERED: LISINOPRIL 20 MG TAB PO SCH (21:00)
[2020-03-22] MEDS: FAMOTIDINE 20 MG TAB PO SCH (23:26)
[2020-03-23 07:14] LABS: Cholesterol 134 mg/dL (<200); HDL Cholesterol 50 mg/dL (40-60); LDL Cholesterol,Calculated 65 mg/dL (0-99); Triglycerides 93 mg/dL (<150)
[2020-03-23] MEDS ORDERED: SODIUM CHLORIDE 0.9% IV ONE (09:00)
[2020-03-23] MEDS ORDERED: amLODIPine 10 MG TAB PO SCH (09:00)
[2020-03-23] MEDS ORDERED: ATORVASTATIN 10 MG TAB PO SCH (09:00)
[2020-03-23] MEDS ORDERED: DIPYRIDAMOLE IV ONE (09:00)
[2020-03-23] MEDS ORDERED: CYANOCOBALAMIN 500 MCG TAB PO SCH (09:00)
[2020-03-23] MEDS ORDERED: ASPIRIN 325 MG TAB PO SCH (09:00)
[2020-03-23] MEDS ORDERED: ASPIRIN 81 MG PO SCH (09:00)
[2020-03-23] MEDS ORDERED: AMINOPHYLLINE 500 MG/20 ML VIAL IV ONE (10:35)
--- NOTE | 2020-03-23 11:08 | P.STRESS ---
- Stress Test Note Stress Test Results/Findings: Exam Performed: NM stress persantine cardiolite Exam Date: 03/23/20 Reason for Exam: Chest Pain Height: 5 ft 7 in Weight: 100.2 kg Protocol: Persantine Stage: NA Duration of Exercise: NA Resting Heart Rate: 73 Resting Blood Pressure: 148/47 Maximum Achieved Heart Rate: 87 Maximum Achieved Blood Pressure: 209/40 85% PMHR: NA 100% PMHR: NA METS: NA Technologist Comment: Stress Test Results/Findings: This is a 79-year-old female with history of hypertension, hypercholesterolemia and smoking history. Being evaluated for chest pains. Stress data: Baseline EKG showed sinus rhythm with diffuse nonspecific ST-T changes. The blood pressure at rest is 148/47, pulse rate of 73. A standard do se of Persantine was infused EKG showed little more pronounced ST-T abnormalities in inferolateral leads, compared to the baseline. Patient complains of some chest pain and also left arm numbness after infusion of Persantine. He did the symptoms improved after administering IV Aminophyllin. Final impression: #1. Borderline ST-T changes associated with some chest discomfort and numbness relieved after giving IV Aminophyllin. Possible ischemia #2. Report on nuclear images to begin by the radiologist
[2020-03-23 11:59] VITALS: TEMP 98.2
[2020-03-23] MEDS: FAMOTIDINE 20 MG TAB PO SCH (12:17)
[2020-03-23 12:22] VITALS: BP 153/68; PULSE 65; RESP 18
--- NOTE | 2020-03-23 12:31 | NM ---
EXAMINATION TYPE: NM stress persantine cardiolite DATE OF EXAM: 03/23/2020 COMPARISON: 03/20/2017 HISTORY: Chest pain TECHNIQUE: After the intravenous administration of 10.1 mCi Tc 99m Sestamibi - Cardiolite resting SP ECT images acquired 55 minutes post injection. The patient received 57 mg Persantine, 25.4 mCi Tc 99m Sestamibi - Stress images obtained 60 minutes post injection Patient stressed with 57 mg of Persantine. 100 mg Aminophyllin was utilized. FINDINGS: No fixed or reversible perfusion defects are evident. There is dyskinesia of the cardiac apex. Ejecti on fraction of 63% is normal. Polar maps reported a large defect along the inferior wall. However, this is not apparent on the SPEC T imaging. No mismatch defects are evident. IMPRESSION: 1. No stress-induced ischemic changes. 2. Dyskinesia at the cardiac apex. Ejection fraction remains normal at 63%.
--- NOTE | 2020-03-23 12:42 | P.CRDCN ---
<Luz Maria Beasley - Last Filed: 03/23/20 11:12> History of Present Illness History of present illness: This is Luz Maria Beasley PA-C scribing on behalf of Dr. Ga The patient was interviewed and examined by Dr. Ga HPI Patient is an 79-year-old female with a history of dyslipidemia, hypertension, c ancer who presented with complaints of chest discomfort.for the last few months, she has had intermittent midsternal chest discomfort which she describes as a dull ache that goes up into her neck. She denies any other symptoms including dyspnea, nausea, diaphoresis, dizziness or syncope. She does get the discomfort with exertion such as with walking. She saw Dr. Ames in the office and a stress test was recommended however she canceled it due to loose stools. Upon arrival to the emergency department vital signs were stable. EKG shows sinus mechanism with no acute ST segment abnormalities. Chest x-ray shows no acute process. Troponins negative 3. ROS: No fevers, chills or rigors, no cough, phlegm or expectoration, no nausea, vomiting, positive for diarrhea about a month ago. no hematuria, dysuria, no musculoskeletal complaints, no strokes or seizures, no skin lesions. EXAMINATION: Patient is afebrile, pulse in the 70s, respirations 18, blood pressure 127/63, oxygen saturation 97% on room air Dr. Ga examined the patient Patient is in no acute distress Lungs are clear to auscultation bilaterally Heart is regular, no audible murmurs No elevated JVD No lower extremity edema REVIEW OF LABS, ECG & MEDICAL DATA WBC 8.3, hemoglobin 12.9, platelets 232, potassium 4.7, BUN 17, creatinine 0.73 troponin negative 3 LDL 65 Lema virus PCR not detected Echocardiogram 03/02/2020 shows normal LV systolic function, EF 55-60%, mild LVH IMPRESSION / ASSESSMENT: Intermittent chest discomfort for the last few months, troponins negative 3, no acute changes on EKG Recent echocardiogram showing normal LV systolic function Hypertension Dyslipidemia History of cancer PLAN: Persantine stress test further management thereafter Past Medical History Past Medical History: Cancer, Hyperlipidemia, Hypertension, Osteoarthritis (OA), Thyroid Disorder Additional Past Medical History / Comment(s): L breast cancer with mastectomy, thyroid cancer, History of Any Multi-Drug Resistant Organisms: None Reported Past Surgical History: Breast Surgery, Cholecystectomy, Hysterectomy Additional Past Surgical History / Comment(s): Partial thyroidectomy, EGD, 1/2 gastrectomy due to ulcers, L breast mastectomy. Past Anesthesia/Blood Transfusion Reactions: No Reported Reaction Past Psychological History: No Psychological Hx Reported Additional Psychological History / Comment(s): Pt resides in a condo alone. She has a walker. She drives. Smoking Status: Former smoker Past Alcohol Use History: None Reported Additional Past Alcohol Use History / Comment(s): Pt smoked from [id number] SMOKE D 11/28-11/26 PPD Past Drug Use History: None Reported - Past Family History Father History Unknown: Yes Additional Family Medical History / Comment(s): Father when pt was 1 yrs old. Mother Family Medical History: Coronary Artery Disease (CAD), Osteoarthritis (OA), Thyroid Disorder Additional Family Medical History / Comment(s): Enlarged heart. Sister(s) Family Medical History: Cancer Additional Family Medical History / Comment(s): breast Medications and Allergies Home Medications Medication Instructions Recorded Confirmed Type RX: Enalapril [Vasotec] 20 mg PO BID 10/18/14 03/22/20 History RX: Metoprolol Tartrate [Lopressor] 50 mg PO BID 10/18/14 03/22/20 History RX: Levothyroxine Sodium 50 mcg PO DAILY 12/11/15 03/22/20 History [Synthroid] RX: fentaNYL 50MCG/HR PATCH 1 patch TRANSDERM Q72H 08/16/16 03/22/20 History [Duragesic 50MCG/HR] RX: Atorvastatin [Lipitor] 5 mg PO DAILY 08/18/19 03/22/20 History RX: cloNIDine HCL [Catapres] 0.1 mg PO HS 10/09/19 03/22/20 History RX: Cyanocobalamin (Vitamin B-12) 2,000 mcg PO DAILY 03/02/20 03/22/20 History [Vitamin B-12] RX: HYDROcodone/APAP 10-325MG 1 tab PO Q8H PRN 03/02/20 03/22/20 History [[place] 10-325] Famotidine [Pepcid] 20 mg PO BID #60 tablet 03/03/20 03/22/20 Rx RX: Aspirin 81 mg PO DAILY chew 03/03/20 03/22/20 Rx RX: amLODIPine [Norvasc] 10 mg PO DAILY #30 tablet 03/03/20 03/22/20 Rx Allergies Allergy/AdvReac Type Severity Reaction Status Date / Time Iodinated Contrast Media Allergy Severe Rash/Hives Verified 03/22/20 21:50 [Iodinated Contrast Media - IV Dye] iodine Allergy Rash/Hives Verified 03/22/20 21:50 pineapple Allergy SORE IN Verified 03/22/20 21:50 MOUTH shellfish derived Allergy SEVERE Verified 03/22/20 21:50 VOMITING Physical Exam Vitals: Vital Signs Temp Pulse Pulse Resp BP BP Pulse Ox 03/23/20 04:00 98.1 F 57 L 57 H 127/62 97 03/23/20 00:00 98.4 F 71 18 154/69 96 03/22/20 21:16 98.1 F 63 18 156/68 97 03/22/20 20:55 98.1 F 63 18 156/69 97 03/22/20 20:00 98.6 F 60 63 18 132/52 98 03/22/20 19:21 61 16 126/52 03/22/20 18:29 60 18 145/60 98 03/22/20 17:15 98.5 F 71 18 141/62 98 Intake and Output 03/22/20 03/23/20 03/23/20 22:59 06:59 14:59 Other: Voiding Method Toilet Toilet # Voids 1 Weight 100.2 kg 100.2 kg Results 03/22/20 18:03 03/22/20 18:03 Cardiac Enzymes 03/22/20 03/22/20 03/22/20 Range/Units 18:03 18:03 23:51 AST 31 (14-36) U/L Troponin I <0.012 <0.012 (0.000-0.034) ng/mL 03/23/20 Range/Units 06:02 AST (14-36) U/L Troponin I <0.012 (0.000-0.034) ng/mL Coagulation 03/22/20 Range/Units 18:03 PT 10.3 (9.0-12.0) sec APTT 21.0 L (22.0-30.0) sec Lipids 03/23/20 Range/Units 06:02 Triglycerides 93 (<150) mg/dL Cholesterol 134 (<200) mg/dL HDL Cholesterol 50 (40-60) mg/dL CBC 03/22/20 Range/Units 18:03 WBC 8.3 (3.8-10.6) k/uL RBC 4.21 (3.80-5.40) m/uL Hgb 12.9 (11.4-16.0) gm/dL Hct 37.1 (34.0-46.0) % Plt Count 232 (150-450) k/uL Comprehensive Metabolic Panel 03/22/20 Range/Units 18:03 Sodium 136 L (137-145) mmol/L Potassium 4.7 (3.5-5.1) mmol/L Chloride 101 (98-107) mmol/L Carbon Dioxide 25 (22-30) mmol/L BUN 17 (7-17) mg/dL Creatinine 0.73 (0.52-1.04) mg/dL Glucose 112 H (74-99) mg/dL Calcium 9.4 (8.4-10.2) mg/dL AST 31 (14-36) U/L ALT 21 (4-34) U/L Alkaline Phosphatase 43 (38-126) U/L Total Protein 7.4 (6.3-8.2) g/dL Albumin 4.4 (3.5-5.0) g/dL Current Medications Generic Name Dose Route Start Last Admin Trade Name Freq PRN Reason Stop Dose Admin Amlodipine Besylate 10 mg 03/23/20 09:00 Norvasc PO DAILY [facility] Aspirin 81 mg 03/23/20 09:00 Aspirin PO DAILY [facility] Atorvastatin Calcium 5 mg 03/23/20 09:00 Lipitor PO DAILY [facility] Clonidine 0.1 mg 03/22/20 21:00 03/22/20 23:26 Catapres PO 0.1 mg HS CODIE Administration Cyanocobalamin 2,000 mcg 03/23/20 09:00 Vitamin B-12 PO DAILY [facility] Enoxaparin Sodium 40 mg 03/22/20 21:00 03/22/20 23:27 Lovenox SQ 40 mg Q24H CODIE Administration Famotidine 20 mg 03/22/20 21:00 03/22/20 23:26 Pepcid PO 20 mg BID CODIE Administration Lisinopril 40 mg 03/22/20 21:00 03/22/20 23:26 Zestril PO 40 mg BID CODIE Administration Nitroglycerin 0.4 mg 03/22/20 19:04 Nitrostat SUBLINGUAL Q5M PRN Chest Pain Intake and Output 03/22/20 03/23/20 03/23/20 22:59 06:59 14:59 Other: Voiding Method Toilet Toilet # Voids 1 Weight 100.2 kg 100.2 kg 03/22/20 18:03 03/22/20 18:03 <Milo Ga - Last Filed: 03/23/20 12:42> Physical Exam Vitals: Vital Signs Temp Pulse Pulse Resp BP BP Pulse Ox 03/23/20 12:00 65 18 153/68 98 03/23/20 08:00 98.2 F 73 16 154/64 98 03/23/20 04:00 98.1 F 57 L 57 H 127/62 97 03/23/20 00:00 98.4 F 71 18 154/69 96 03/22/20 21:16 98.1 F 63 18 156/68 97 03/22/20 20:55 98.1 F 63 18 156/69 97 03/22/20 20:00 98.6 F 60 63 18 132/52 98 03/22/20 19:21 61 16 126/52 03/22/20 18:29 60 18 145/60 98 03/22/20 17:15 98.5 F 71 18 141/62 98 Intake and Output 03/22/20 03/23/20 03/23/20 22:59 06:59 14:59 Other: Voiding Method Toilet Toilet # Voids 1 Weight 100.2 kg 100.2 kg 100.2 kg Results 03/22/20 18:03 03/22/20 18:03 Cardiac Enzymes 03/22/20 03/22/20 03/22/20 Range/Units 18:03 18:03 23:51 AST 31 (14-36) U/L Troponin I <0.012 <0.012 (0.000-0.034) ng/mL 03/23/20 Range/Units 06:02 AST (14-36) U/L Troponin I <0.012 (0.000-0.034) ng/mL Coagulation 03/22/20 Range/Units 18:03 PT 10.3 (9.0-12.0) sec APTT 21.0 L (22.0-30.0) sec Lipids 03/23/20 Range/Units 06:02 Triglycerides 93 (<150) mg/dL Cholesterol 134 (<200) mg/dL HDL Cholesterol 50 (40-60) mg/dL CBC 03/22/20 Range/Units 18:03 WBC 8.3 (3.8-10.6) k/uL RBC 4.21 (3.80-5.40) m/uL Hgb 12.9 (11.4-16.0) gm/dL Hct 37.1 (34.0-46.0) % Plt Count 232 (150-450) k/uL Comprehensive Metabolic Panel 03/22/20 Range/Units 18:03 Sodium 136 L (137-145) mmol/L Potassium 4.7 (3.5-5.1) mmol/L Chloride 101 (98-107) mmol/L Carbon Dioxide 25 (22-30) mmol/L BUN 17 (7-17) mg/dL Creatinine 0.73 (0.52-1.04) mg/dL Glucose 112 H (74-99) mg/dL Calcium 9.4 (8.4-10.2) mg/dL AST 31 (14-36) U/L ALT 21 (4-34) U/L Alkaline Phosphatase 43 (38-126) U/L Total Protein 7.4 (6.3-8.2) g/dL Albumin 4.4 (3.5-5.0) g/dL Current Medications Generic Name Dose Route Start Last Admin Trade Name Freq PRN Reason Stop Dose Admin Amlodipine Besylate 10 mg 03/23/20 09:00 03/23/20 12:16 Norvasc PO 10 mg DAILY CODIE Administration Aspirin 81 mg 03/23/20 09:00 03/23/20 12:16 Aspirin PO 81 mg DAILY CODIE Administration Atorvastatin Calcium 5 mg 03/23/20 09:00 03/23/20 12:16 Lipitor PO 5 mg DAILY CODIE Administration Clonidine 0.1 mg 03/22/20 21:00 03/22/20 23:26 Catapres PO 0.1 mg HS CODIE Administration Cyanocobalamin 2,000 mcg 03/23/20 09:00 03/23/20 12:16 Vitamin B-12 PO 2,000 mcg DAILY CODIE Administration Enoxaparin Sodium 40 mg 03/22/20 21:00 03/22/20 23:27 Lovenox SQ 40 mg Q24H CODIE Administration Famotidine 20 mg 03/22/20 21:00 03/23/20 12:17 Pepcid PO 20 mg BID CODIE Administration Lisinopril 40 mg 03/24/20 09:00 Zestril PO DAILY [facility] Nitroglycerin 0.4 mg 03/22/20 19:04 Nitrostat SUBLINGUAL Q5M PRN Chest Pain Intake and Output 03/22/20 03/23/20 03/23/20 22:59 06:59 14:59 Other: Voiding Method Toilet Toilet # Voids 1 Weight 100.2 kg 100.2 kg 100.2 kg Patient Weight 03/24/20 06:59 Weight 100.2 kg 03/22/20 18:03 03/22/20 18:03
[2020-03-24] MEDS ORDERED: LISINOPRIL 20 MG TAB PO SCH (09:00)
--- NOTE | 2020-03-24 09:32 | ECHOF ---
Referral Reason:apical dyskinesis MEASUREMENTS -------- HEIGHT: 170.2 cm WEIGHT: 99.8 kg BP: IVSd: 1.4 cm (0.6 - 1.1) LVIDd: 3.3 cm (3.9 - 5.3) LVPWd: 1.5 cm (0.6 - 1.1) IVSs: 1.4 cm LVIDs: 1.1 cm LVPWs: 1.2 cm Ao Diam: 3.0 cm (2.0 - 3.7) AV Cusp: 1.3 cm (1.5 - 2.6) LA Diam: 3.6 cm (2.7 - 3.8) MV E Kennedy: 0.65 m/s MV DecT: 219 ms MV A Kennedy: 0.89 m/s MV E/A Ratio: 0.73 AV maxP.86 mmHg AV meanP.21 mmHg RAP: 5.00 mmHg RVSP: 11.95 mmHg FINDINGS -------- Sinus rhythm. This was a technically difficult study with suboptimal views. Pt had mastectomy The left ventricular size is normal. There is moderate concentric left ventricular hypertrophy. O verall left ventricular systolic function is normal with, an EF between 55 - 60 %. The diastolic fi lling pattern is normal for the age of the patient 7.15. The right ventricle is normal in size. The left atrial size is normal. The right atrial size is normal. Aortic valve is trileaflet and is mildly thickened. There is mild aortic valve sclerosis. Peak/me an gradient across the Aortic Valve is 15.86mmHg / 9.21mmHg. The mitral valve is normal. Mild mitral regurgitation is present. The tricuspid valve appears structurally normal. Trace tricuspid regurgitation present. Right annamaria tricular systolic pressure is normal at < 35 mmHg. The pulmonic valve was not well visualized. The aortic root size is normal. IVC Not well visulized. There is no pericardial effusion. CONCLUSIONS -------- 1. Sinus rhythm. 2. This was a technically difficult study with suboptimal views. 3. Pt had mastectomy 4. The left ventricular size is normal. 5. There is moderate concentric left ventricular hypertrophy. 6. Overall left ventricular systolic function is normal with, an EF between 55 - 60 %. 7. The diastolic filling pattern is normal for the age of the patient 7.15 8. The right ventricle is normal in size. 9. The left atrial size is normal. 10. The right atrial size is normal. 11. Aortic valve is trileaflet and is mildly thickened. 12. There is mild aortic valve sclerosis. 13. Peak/mean gradient across the Aortic Valve is 15.86mmHg / 9.21mmHg. 14. The mitral valve is normal. 15. Mild mitral regurgitation is present. 16. The tricuspid valve appears structurally normal. 17. Trace tricuspid regurgitation present. 18. Right ventricular systolic pressure is normal at < 35 mmHg. 19. The pulmonic valve was not well visualized. 20. The aortic root size is normal. 21. IVC Not well visulized. 22. There is no pericardial effusion. LIVESTOCK TRADER: Bee Mclean RDCS
--- NOTE | 2020-03-24 21:12 | P.DS ---
Providers Date of admission: 03/22/20 19:05 Expected date of discharge: 03/24/20 Attending physician: Bill Cabrera Consults: 03/22/20 19:04 Consult Physician Urgent Consulting Provider: Warren Nunez Consult Reason/Comments: chest pain Do you want consulting provider notified?: Yes Primary care physician: Scott Jerry [facility] Course: Chief Complaint: Chest pain History of presenting complaint: This is a pleasant 79-year-old patient of Dr. Scott Rice. Chronic stable medical conditions include hyperlipidemia, hypertension, osteoarthritis, hyp othyroid, left breast cancer with mastectomy. Patient also had a prior partial thyroidectomy and a partial gastrectomy due to ulcers. Patient now presents with having upper chest pressure sometimes going to the neck and jaw and some tingling of the left arm. Sometimes associated with shortness of breath. His been coming on and off for a few days. No dizziness no lightheadedness. Notices the symptoms to be worse with activity. Patient was here in early part of this month seen by cardiology, amlodipine was added and patient was discharged. Underwent a nuclear stress test. Negative for ischemia. Cleared by cardiology. Consultation: Dr. Manjeet Ga from cardiology Physical examination: VITAL SIGNS: 98.2, 73, 16, 154/64, 98% on room air GENERAL: Propped up, comfortable EYES: Pupils equal. Conjunctiva normal. HEENT: External appearance of nose and ears normal, oral cavity grossly normal. NECK: JVD not raised; masses not palpable. HEART: First and second heart sounds are normal; no edema. LUNGS: Respiratory rate normal; clear to auscultation. ABDOMEN: Soft, no tenderness, liver spleen not palpable, no masses palpable. PSYCH: Alert and oriented x3; mood and affect normal. MUSCULAR skeletal: Evidence of OA INVESTIGATIONS, reviewed in the clinical context: White count 8.3 hemoglobin 12.9 pressure 4.7 creatinine 0.73 Troponin I negative Coronavirus PCR-not detected EKG tracing personally reviewed by me-normal sinus rhythm Chest x-ray film personally reviewed by me-lung rivas clear 2-D echo EF 55-60% Assessment: -Chest pain-likely musculoskeletal. -Hyperlipidemia -Essential hypertension -Primary osteoarthritis -Hypothyroid -Obesity BMI 34.5 -Non-alcoholic steatohepatitis Disposition: Home Patient Condition at Discharge: Stable Plan - Discharge Summary Discharge Rx Participant: No New Discharge Prescriptions: Continue Metoprolol Tartrate [Lopressor] 50 mg PO BID Enalapril [Vasotec] 20 mg PO BID Levothyroxine Sodium [Synthroid] 50 mcg PO DAILY fentaNYL 50MCG/HR PATCH [Duragesic 50MCG/HR] 1 patch TRANSDERM Q72H Atorvastatin [Lipitor] 5 mg PO DAILY HYDROcodone/APAP 10-325MG [[place] 10-325] 1 tab PO Q8H PRN PRN Reason: Pain Cyanocobalamin (Vitamin B-12) [Vitamin B-12] 2,000 mcg PO DAILY Aspirin 81 mg PO DAILY chew amLODIPine [Norvasc] 10 mg PO DAILY #30 tablet Famotidine [Pepcid] 20 mg PO BID #60 tablet Discontinued cloNIDine HCL [Catapres] 0.1 mg PO HS Discharge Medication List Enalapril [Vasotec] 20 mg PO BID 10/18/14 [History] Metoprolol Tartrate [Lopressor] 50 mg PO BID 10/18/14 [History] Levothyroxine Sodium [Synthroid] 50 mcg PO DAILY 12/11/15 [History] fentaNYL 50MCG/HR PATCH [Durages[place] 50MCG/HR] 1 patch TRANSDERM Q72H 08/16/16 [History] Atorvastatin [Lipitor] 5 mg PO DAILY 08/18/19 [History] Cyanocobalamin (Vitamin B-12) [Vitamin B-12] 2,000 mcg PO DAILY 03/02/20 [History] HYDROcodone/APAP 10-325MG [[place] 10-325] 1 tab PO Q8H PRN 03/02/20 [History] Aspirin 81 mg PO DAILY chew 03/03/20 [Rx] Famotidine [Pepcid] 20 mg PO BID #60 tablet 03/03/20 [Rx] amLODIPine [Norvasc] 10 mg PO DAILY #30 tablet 03/03/20 [Rx] Follow up Appointment(s)/Referral(s): cardiology, [Other] - 2 Weeks Scott Jerry DO [Primary Care Provider] - 1-2 days (Please call to schedule follow up appointment when office is open ) Patient Instructions/Handouts: Chest Pain (DC) Activity/Diet/Wound Care/Special Instructions: . Discharge Disposition: HOME SELF-CARE
== END 2020-03-23 16:46 | disposition home or self-care (01) ==
LOC: EC 17:05 → 3SCARD 19:05
PROVIDERS: ADMIT Hospitalist; ATTEND Hospitalist
DX: R07.89 Other chest pain (principal); Z03.818 Encounter for observation for suspected exposure to other biological agents ruled out; E66.9 Obesity, unspecified; E78.5 Hyperlipidemia, unspecified; I10 Essential (primary) hypertension; I25.10 Atherosclerotic heart disease of native coronary artery without angina pectoris; K75.81 Nonalcoholic steatohepatitis (NASH); E89.0 Postprocedural hypothyroidism; M19.91 Primary osteoarthritis, unspecified site; Z68.34 Body mass index [BMI] 34.0-34.9, adult; Z79.82 Long term (current) use of aspirin; Z79.890 Hormone replacement therapy; Z79.899 Other long term (current) drug therapy; Z82.49 Family history of ischemic heart disease and other diseases of the circulatory system; Z85.3 Personal history of malignant neoplasm of breast; Z85.850 Personal history of malignant neoplasm of thyroid; Z87.891 Personal history of nicotine dependence; Z90.12 Acquired absence of left breast and nipple; Z90.3 Acquired absence of stomach [part of]; Z90.710 Acquired absence of both cervix and uterus; Z91.041 Radiographic dye allergy status; Z91.013 Allergy to seafood; Z91.018 Allergy to other foods
CPT/HCPCS: 96372; 93005 ×2; 99285; 36415; 93017; 93306; 80061; 80053; 83735; 84484 ×2; 85025; 85610; 85730; 87635; 71046; 78452; G0378 ×2; A9500; J0280; J1650; J1245

== ENCOUNTER 2020-04-04 09:17 | Observation (INO) | payer MEDICARE, BC ==
[2020-04-04] MEDS ORDERED: SODIUM CHLORIDE 0.9% 500 ML 500 ML IV STA (09:48)
[2020-04-04] MEDS ORDERED: NITROGLYCERIN OINT 1 INCH/GM PACKET TOPICAL STA (09:48)
[2020-04-04] MEDS ORDERED: ASPIRIN 81 MG PO STA (09:48)
--- NOTE | 2020-04-04 10:02 | XR ---
EXAMINATION TYPE: XR chest 2V DATE OF EXAM: 04/04/2020 COMPARISON: 03/22/2020 HISTORY: Shortness of breath TECHNIQUE: Frontal and lateral views of the chest are obtained. FINDINGS: Scattered senescent parenchymal changes noted. No evidence for infiltrate. No evidence for atelectasis. Heart size is stable. Mediastinal structures are stable and grossly unremarkable. No evidence for hilar prominence. Degenerative changes dorsal spine. IMPRESSION: 1. No evidence for acute pulmonary disease.
--- NOTE | 2020-04-04 10:10 | ED ---
General Adult HPI - General Chief complaint: Chest Pain Stated complaint: Chest Pain Time Seen by Provider: 04/04/20 09:20 Source: patient, RN notes reviewed, old records reviewed Mode of arrival: ambulatory Limitations: no limitations - History of Present Illness Initial comments: This is an 79-year-old female presents emergency department stating that 2 days ago she cut her final patches and half instead of taking 50 she's been doing 25 a day and soon thereafter she became very nauseated and last night she started having chest pain which radiated to her left shoulder she continued to be nauseous and she also believes she was more short of breath. Patient states she also noted that her heart rate was a little fast as well. Patient believes this is secondary to her change in medications and possibly withdrawal. Patient denies any fever chills or cough. Patient states she has no swelling to her legs she denies any calf tenderness. Patient denies any lightheadedness or dizziness. Patient states the shortness of breath does get worse with exertion. - Related Data Home Medications Medication Instructions Recorded Confirmed Enalapril [Vasotec] 20 mg PO BID 10/18/14 03/22/20 Metoprolol Tartrate [Lopressor] 50 mg PO BID 10/18/14 03/22/20 Levothyroxine Sodium [Synthroid] 50 mcg PO DAILY 12/11/15 03/22/20 fentaNYL 50MCG/HR PATCH [Duragesic 1 patch TRANSDERM Q72H 08/16/16 03/22/20 50MCG/HR] Atorvastatin [Lipitor] 5 mg PO DAILY 08/18/19 03/22/20 Cyanocobalamin (Vitamin B-12) 2,000 mcg PO DAILY 03/02/20 03/22/20 [Vitamin B-12] HYDROcodone/APAP 10-325MG [[place] 1 tab PO Q8H PRN 03/02/20 03/22/20 10-325] Previous Rx's Medication Instructions Recorded Aspirin 81 mg PO DAILY chew 03/03/20 Famotidine [Pepcid] 20 mg PO BID #60 tablet 03/03/20 amLODIPine [Norvasc] 10 mg PO DAILY #30 tablet 03/03/20 Allergies Allergy/AdvReac Type Severity Reaction Status Date / Time Iodinated Contrast Media Allergy Severe Rash/Hives Verified 04/04/20 09:22 [Iodinated Contrast Media - IV Dye] iodine Allergy Rash/Hives Verified 04/04/20 09:22 pineapple Allergy SORE IN Verified 04/04/20 09:22 MOUTH shellfish derived Allergy SEVERE Verified 04/04/20 09:22 VOMITING Review of Systems ROS Statement: Those systems with pertinent positive or pertinent negative responses have been documented in the HPI. ROS Other: All systems not noted in ROS Statement are negative. Past Medical History Past Medical History: Cancer, Hyperlipidemia, Hypertension, Osteoarthritis (OA), Thyroid Disorder Additional Past Medical History / Comment(s): L breast cancer with mastectomy, thyroid cancer, History of Any Multi-Drug Resistant Organisms: None Reported Past Surgical History: Breast Surgery, Cholecystectomy, Hysterectomy Additional Past Surgical History / Comment(s): Partial thyroidectomy, EGD, 1/2 gastrectomy due to ulcers, L breast mastectomy. Past Anesthesia/Blood Transfusion Reactions: No Reported Reaction Past Psychological History: No Psychological Hx Reported Smoking Status: Former smoker Past Alcohol Use History: None Reported Past Drug Use History: None Reported - Past Family History Father History Unknown: Yes Additional Family Medical History / Comment(s): Father when pt was 1 yrs old. Mother Family Medical History: Coronary Artery Disease (CAD), Osteoarthritis (OA), Thyroid Disorder Additional Family Medical History / Comment(s): Enlarged heart. Sister(s) Family Medical History: Cancer Additional Family Medical History / Comment(s): breast General Exam - General Exam Comments Initial Comments: GENERAL: Patient is well-developed and well-nourished. Patient is nontoxic and well- hydrated and is in mild distress. ENT: Neck is soft and supple. No significant lymphadenopathy is noted. Oropharynx is clear. Moist mucous membranes. Neck has full range of motion without eliciting any pain. EYES: The sclera were anicteric and conjunctiva were pink and moist. Extraocular movements were intact and pupils were equal round and reactive to light. Eyelids were unremarkable. PULMONARY: Unlabored respirations. Good breath sounds bilaterally. No audible rales rhon chi or wheezing was noted. CARDIOVASCULAR: There is a regular rate and rhythm without any murmurs gallops or rubs. ABDOMEN: Soft and nontender with normal bowel sounds. SKIN: Skin is clear with no lesions or rashes and otherwise unremarkable. NEUROLOGIC: Patient is alert and oriented x3. Cranial nerves II through XII are grossly intact. Motor and sensory are also intact. Normal speech, volume and content. Symmetrical smile. MUSCULOSKELETAL: Normal extremities with adequate strength and full range of motion. No lower extremity swelling or edema. No calf tenderness. LYMPHATICS: No significant lymphadenopathy is noted PSYCHIATRIC: Normal psychiatric evaluation. Limitations: no limitations Course Vital Signs 04/04/20 04/04/20 04/04/20 09:19 09:43 10:00 Temperature 98.5 F Pulse Rate 138 H 102 H Pulse Rate [ 111 H Electrical Test Engineer ] Respiratory 18 18 Rate Blood Pressure 172/78 133/80 O2 Sat by Pulse 98 98 Oximetry 04/04/20 04/04/20 04/04/20 10:06 10:30 11:00 Temperature Pulse Rate 100 96 101 H Pulse Rate [ Electrical Test Engineer ] Respiratory 18 18 18 Rate Blood Pressure 133/80 148/59 O2 Sat by Pulse 98 93 L 94 L Oximetry Medical Decision Making - Medical Decision Making EKG shows sinus tachycardia at 119 bpm [place] interval 166 QRS 102 QT interval 322 QTC is 452. Patient's EKG shows no ST segment elevation or depression. Chest x-ray shows no acute abnormality. Patient is going to be brought in for unstable angina. Patient is given be placed on heparin. [facility] admitted the patient I wrote admitting orders I continued heparin and aspirin Nitropaste on the floor. - Lab Data Result diagrams: 04/04/20 09:34 04/04/20 09:34 Lab Results 04/04/20 04/04/20 04/04/20 Range/Units 09:34 09:34 09:34 WBC 10.2 (3.8-10.6) k/uL RBC 5.18 (3.80-5.40) m/uL Hgb 15.1 (11.4-16.0) gm/dL Hct 45.4 (34.0-46.0) % MCV 87.7 (80.0-100.0) fL MCH 29.1 (25.0-35.0) pg MCHC 33.2 (31.0-37.0) g/dL RDW 12.1 (11.5-15.5) % Plt Count 270 (150-450) k/uL Neutrophils % 68 % Lymphocytes % 23 % Monocytes % 5 % Eosinophils % 1 % Basophils % 1 % Neutrophils # 7.0 (1.3-7.7) k/uL Lymphocytes # 2.4 (1.0-4.8) k/uL Monocytes # 0.5 (0-1.0) k/uL Eosinophils # 0.1 (0-0.7) k/uL Basophils # 0.1 (0-0.2) k/uL PT 10.5 (9.0-12.0) sec INR 1.0 (<1.2) APTT 22.4 (22.0-30.0) sec Sodium 137 (137-145) mmol/L Potassium 4.3 (3.5-5.1) mmol/L Chloride 96 L (98-107) mmol/L Carbon Dioxide 26 (22-30) mmol/L Anion Gap 15 mmol/L BUN 20 H (7-17) mg/dL Creatinine 0.71 (0.52-1.04) mg/dL Est GFR (CKD-EPI)AfAm >90 (>60 ml/min/1.73 sqM) Est GFR (CKD-EPI)NonAf 81 (>60 ml/min/1.73 sqM) Glucose 208 H (74-99) mg/dL Calcium 10.0 (8.4-10.2) mg/dL Magnesium 1.9 (1.6-2.3) mg/dL Total Bilirubin 1.0 (0.2-1.3) mg/dL AST 32 (14-36) U/L ALT 25 (4-34) U/L Alkaline Phosphatase 67 (38-126) U/L Troponin I (0.000-0.034) ng/mL Total Protein 8.8 H (6.3-8.2) g/dL Albumin 5.1 H (3.5-5.0) g/dL 04/04/20 Range/Units 09:34 WBC (3.8-10.6) k/uL RBC (3.80-5.40) m/uL Hgb (11.4-16.0) gm/dL Hct (34.0-46.0) % MCV (80.0-100.0) fL MCH (25.0-35.0) pg MCHC (31.0-37.0) g/dL RDW (11.5-15.5) % Plt Count (150-450) k/uL Neutrophils % % Lymphocytes % % Monocytes % % Eosinophils % % Basophils % % Neutrophils # (1.3-7.7) k/uL Lymphocytes # (1.0-4.8) k/uL Monocytes # (0-1.0) k/uL Eosinophils # (0-0.7) k/uL Basophils # (0-0.2) k/uL PT (9.0-12.0) sec INR (<1.2) APTT (22.0-30.0) sec Sodium (137-145) mmol/L Potassium (3.5-5.1) mmol/L Chloride (98-107) mmol/L Carbon Dioxide (22-30) mmol/L Anion Gap mmol/L BUN (7-17) mg/dL Creatinine (0.52-1.04) mg/dL Est GFR (CKD-EPI)AfAm (>60 ml/min/1.73 sqM) Est GFR (CKD-EPI)NonAf (>60 ml/min/1.73 sqM) Glucose (74-99) mg/dL Calcium (8.4-10.2) mg/dL Magnesium (1.6-2.3) mg/dL Total Bilirubin (0.2-1.3) mg/dL AST (14-36) U/L ALT (4-34) U/L Alkaline Phosphatase (38-126) U/L Troponin I <0.012 (0.000-0.034) ng/mL Total Protein (6.3-8.2) g/dL Albumin (3.5-5.0) g/dL Critical Care Time Critical Care Time: Yes Total Critical Care Time: 35 Disposition Clinical Impression: Unstable angina pectoris Disposition: ADMITTED IP TO THIS HOSP Referrals: Scott Jerry DO [Primary Care Provider] - 1-2 days Time of Disposition: 11:27
[2020-04-04 10:12] LABS: Basophils # (A) 0.1 k/uL (0-0.2); Basophils % (A) 1 %; Eosinophils # (A) 0.1 k/uL (0-0.7); Eosinophils % (A) 1 %; HCT 45.4 % (34.0-46.0); HGB 15.1 gm/dL (11.4-16.0); Lymphocytes # (A) 2.4 k/uL (1.0-4.8); Lymphocytes % (A) 23 %; MCH 29.1 pg (25.0-35.0); MCHC 33.2 g/dL (31.0-37.0); MCV 87.7 fL (80.0-100.0); Mean Platelet Volume 7.4; Monocytes # (A) 0.5 k/uL (0-1.0); Monocytes % (A) 5 %; Neutrophils % (A) 68 %; Platelet Count 270 k/uL (150-450); RBC 5.18 m/uL (3.80-5.40); RDW 12.1 % (11.5-15.5); WBC 10.2 k/uL (3.8-10.6)
[2020-04-04 10:24] LABS: ALT 25 U/L (4-34); AST 32 U/L (14-36); African American GFR (CKD) >90 (>60 ml/min/1.73 sqM); Albumin 5.1 g/dL (3.5-5.0); Alkaline Phosphatase 67 U/L (38-126); Anion Gap 15 mmol/L; Blood Urea Nitrogen 20 mg/dL (7-17); Carbon Dioxide 26 mmol/L (22-30); Chloride 96 mmol/L (98-107); Glucose 208 mg/dL (74-99); Magnesium 1.9 mg/dL (1.6-2.3); Non-African American GFR(CKD) 81 (>60 ml/min/1.73 sqM); Potassium 4.3 mmol/L (3.5-5.1); Sodium 137 mmol/L (137-145); Total Protein 8.8 g/dL (6.3-8.2)
[2020-04-04 10:44] LABS: Partial Thromboplastin Time 22.4 sec (22.0-30.0); Prothrombin Time 10.5 sec (9.0-12.0)
[2020-04-04] MEDS ORDERED: ACETAMINOPHEN TAB 500 MG TAB PO STA (11:25)
[2020-04-04] MEDS ORDERED: NITROGLYCERIN SL TABS 0.4 MG TAB SUBLINGUAL PRN (11:28)
[2020-04-04] MEDS: NITROGLYCERIN OINT 1 INCH/GM PACKET TOPICAL SCH ×2 (12:07→17:27)
[2020-04-04 14:53] VITALS: RESP 16
--- NOTE | 2020-04-04 15:19 | P.HPIM ---
History of Present Illness H&P Date: 04/04/20 Chief Complaint: "I am feeling sick in my stomach and chest " Ms. Youssef is a 79-year-old female with a past medical history of hypertension, hyperlipidemia, thyroid cancer, left breast cancer status post mastectomy, osteoarthritis coming into the hospital complaining that she has been feeling sick in her stomach and chest for the past 4 days. Patient states that she takes 50 mg of fentanyl patch for her osteoarthritis and it has been changed to 25 mg 4 days back. She has been on this for almost 2-3 years. Since decreasing the dose patient started to feel sick in her stomach with nausea. She denies having any vomiting. Patient also noticed to have chest discomfort mostly in the midsternal area radiating to her left shoulder. She also thinks that her heart rate did go up a little bit. Patient denies having any fevers, chills or rigors. She denies having any difficulty in breathing or cough. She denies having any diarrhea or constipation. Denies exposure to COVID- 19 pts. Denies having any recent travel. No orthopnea, PND or lower extremity swelling. In the emergency patient had a chest x-ray that was within normal limits. EKG showing sinus tachycardia at [address] or T-wave changes. She has labs done showing white count of 10.2 hemoglobin 15.1. Metabolic panel within normal limits. Troponin less than 0.012. Lema virus PCR pending currently. Currently patient denies having any active chest pain. She states that she has mild headaches. Review of Systems REVIEW OF SYSTEMS: PSYCH: No anxiety or depression NEURO:No c/o weakness of the extremties, No facial droop, No speech abnormalities. VASCULAR: Peripheral nervous system within the normal limits no edema HEMATOLOGIC: No history of easy bleeding and bruising . No recent infections . RESPIRATORY: No cough, No SOB IMMUNE: No infections INTEGUMENT: no rashes OPHTHALMOLOGIC: No blurry vision and no eye discharge : No dysuria or hematuria LINE WELDER: No bleeding PV CARDIAC: As per HPI MUSCULOSKELETAL : No Aches or pains in the joints or muscles. GI: No abdominal pain or vomiting. No constipation or diarrhea. All 13 review of systems are done and negative except for the ones mentioned above. Past Medical History Past Medical History: Cancer, Hyperlipidemia, Hypertension, Osteoarthritis (OA), Thyroid Disorder Additional Past Medical History / Comment(s): L breast cancer with mastectomy, thyroid cancer, History of Any Multi-Drug Resistant Organisms: None Reported Past Surgical History: Breast Surgery, Cholecystectomy, Hysterectomy Additional Past Surgical History / Comment(s): Partial thyroidectomy, EGD, 1/2 gastrectomy due to ulcers, L breast mastectomy. Past Anesthesia/Blood Transfusion Reactions: No Reported Reaction Past Psychological History: No Psychological Hx Reported Additional Psychological History / Comment(s): Pt resides in a condo alone. She has a walker. She drives. Smoking Status: Former smoker Past Alcohol Use History: None Reported Additional Past Alcohol Use History / Comment(s): Pt smoked from [id number] SMOKED 1/4-12 PPD Past Drug Use History: None Reported - Past Family History Father History Unknown: Yes Additional Family Medical History / Comment(s): Father when pt was 1 yrs old. Mother Family Medical History: Coronary Artery Disease (CAD), Osteoarthritis (OA), Thyroid Disorder Additional Family Medical History / Comment(s): Enlarged heart. Sister(s) Family Medical History: Cancer Additional Family Medical History / Comment(s): breast Medications and Allergies Home Medications Medication Instructions Recorded Confirmed Type Metoprolol Tartrate [Lopressor] 50 mg PO BID 10/18/14 04/04/20 History Levothyroxine Sodium [Synthroid] 50 mcg PO DAILY 12/11/15 04/04/20 History Atorvastatin [Lipitor] 5 mg PO DAILY 08/18/19 04/04/20 History Cyanocobalamin (Vitamin B-12) 2,000 mcg PO DAILY 03/02/20 04/04/20 History [Vitamin B-12] HYDROcodone/APAP 10-325MG [[place] 1 tab PO Q8H PRN 03/02/20 04/04/20 History 10-325] Aspirin 81 mg PO DAILY chew 03/03/20 04/04/20 Rx Famotidine [Pepcid] 20 mg PO BID PRN 04/04/20 04/04/20 History Losartan/Hydrochlorothiazide 1 tab PO DAILY 04/04/20 04/04/20 History [Losartan-Hctz 100-25 mg Tab] amLODIPine [Norvasc] 5 mg PO DAILY 04/04/20 04/04/20 History fentaNYL 25MCG/HR PATCH [Duragesic 25 mcg TRANSDERM Q72H 04/04/20 04/04/20 History 25MCG/HR] Allergies Allergy/AdvReac Type Severity Reaction Status Date / Time Iodinated Contrast Media Allergy Severe Rash/Hives Verified 04/04/20 11:53 [Iodinated Contrast Media - IV Dye] iodine Allergy Rash/Hives Verified 04/04/20 11:53 pineapple Allergy SORE IN Verified 04/04/20 11:53 MOUTH shellfish derived Allergy SEVERE Verified 04/04/20 11:53 VOMITING Physical Exam Vitals: Vital Signs Temp Pulse Pulse Resp BP BP Pulse Ox 04/04/20 13:15 98.7 F 105 H 16 153/66 98 04/04/20 12:54 88 18 145/80 97 04/04/20 11:00 101 H 18 148/59 94 L 04/04/20 10:30 96 18 93 L 04/04/20 10:06 100 18 133/80 98 04/04/20 10:00 102 H 18 133/80 98 04/04/20 09:43 111 H 04/04/20 09:19 98.5 F 138 H 18 172/78 98 Intake and Output 04/04/20 04/04/20 04/04/20 06:59 14:59 22:59 Other: Weight 99.79 kg PHYSICAL EXAM; GEN. APPEARANCE: alert, in no apparent distress HEAD EXAM: atraumatic, normocephalic, normal inspection EYE EXAM: normal appearance, PERRL, EOMI. no pallor. No icterus. ENT EXAM: normal exam, mucous membranes moist NECK EXAM: normal inspection. No JVD. No thyromegaly. RESPIRATORY EXAM: normal lung sounds bilaterally. No wheeze or crackles. CARDIOVASCULAR EXAM: regular rate, tachycardia, normal heart sounds. GI/ABDOMINAL EXAM: soft, normal bowel sounds. Nontender, nondistended. No guarding or rigidity. EXTREMITIES EXAM: No pedal edema. NEUROLOGICAL EXAM: alert, oriented X3, no focal deficits on gross exam PSYCHIATRIC EXAM: normal affect, normal mood SKIN EXAM: warm, dry, intact, normal color. Results CBC & Chem 7: 04/04/20 09:34 04/04/20 09:34 Labs: Abnormal Lab Results - Last 24 Hours (Table) 04/04/20 Range/Units 09:34 Chloride 96 L (98-107) mmol/L BUN 20 H (7-17) mg/dL Glucose 208 H (74-99) mg/dL Total Protein 8.8 H (6.3-8.2) g/dL Albumin 5.1 H (3.5-5.0) g/dL Thrombosis Risk Factor Assmnt - Choose All That Apply Each Factor Represents 1 point: Obesity (BMI >25) Each Risk Factor Represents 2 Points: Malignancy Each Risk Factor Represents 3 Points: Age 75 years or older Thrombosis Risk Factor Assessment Total Risk Factor Score: 6 Thrombosis Risk Factor Assessment Level: High Risk Assessment and Plan Assessment: ASSESSMENT Chest discomfort Palpitations Opioid dependence Hypertension Hyperlipidemia Left breast cancer status post mastectomy Thyroid cancer Former smoker PLAN: Patient is admitted for ACS rule out. Will check serial troponins and EKGs. Will check d-dimer, lema virus PCR pending. Her symptoms could be related to opioid withdrawal as her fentanyl patch has been decreased from 50 to 25 recently and her symptoms started around the same time. Patient does not want to go back to the dose of 50, we'll continue to monitor. We will resume her home medications. Further recommendations to follow depending on the progress of the patient.
[2020-04-04] MEDS: LEVOTHYROXINE 50 MCG TAB PO SCH (15:52)
[2020-04-04] MEDS: ATORVASTATIN 10 MG TAB PO SCH (16:06)
[2020-04-04] MEDS: amLODIPine 5 MG TAB PO SCH (16:07)
[2020-04-04] MEDS: ASPIRIN 81 MG PO SCH (16:07)
[2020-04-04] MEDS: LOSARTAN-HCTZ 50-12.5 MG 1 EACH TAB PO SCH (16:08)
[2020-04-04] MEDS: FAMOTIDINE 20 MG TAB PO PRN (16:08)
[2020-04-04] MEDS: HYDROcodone/APAP 10-325MG 1 EACH TAB PO PRN (16:12)
--- NOTE | 2020-04-04 19:19 | NM ---
EXAMINATION TYPE: NM pul vent and perfuse DATE OF EXAM: 04/04/2020 COMPARISON: Chest x-ray earlier today. HISTORY: Chest pain and elevated d-dimer. TECHNIQUE: Utilizing inhalation of 38.7 mCi Tc 99m DTPA aerosol and intravenous injection of 5.2 mCi of Tc 99m MAA, ventilation and perfusion images are acquired post injection in multiple projections. FINDINGS: Normal radiotracer distribution is noted in the lungs. There is no evidence of mismatched defects. IMPRESSION: Low scintigraphic evidence for acute pulmonary embolism.
[2020-04-04] MEDS: METOPROLOL TARTRATE 50 MG TAB PO SCH (21:22)
[2020-04-04] MEDS ORDERED: HEPARIN SODIUM,PORCINE 5,000 UNIT/ML 1 ML VIAL IV ONE (22:28)
[2020-04-04] MEDS ORDERED: HEPARIN SODIUM,PORCINE 5,000 UNIT/ML 1 ML VIAL IV PRN (22:28)
[2020-04-04] MEDS: HEPARIN SOD,PORK IN 0.45% NACL 25,000 UNIT in 0.45% NACL 1 250ML.BAG IV SCH (23:50)
[2020-04-05] MEDS: FAMOTIDINE 20 MG TAB PO PRN (00:05)
[2020-04-05] MEDS: NITROGLYCERIN OINT 1 INCH/GM PACKET TOPICAL SCH ×5 (00:05→23:11)
[2020-04-05] MEDS: HYDROcodone/APAP 10-325MG 1 EACH TAB PO PRN ×3 (03:01→21:19)
[2020-04-05] MEDS: LEVOTHYROXINE 50 MCG TAB PO SCH (05:49)
[2020-04-05 06:42] LABS: Basophils # (A) 0.1 k/uL (0-0.2); Basophils % (A) 1 %; Eosinophils # (A) 0.2 k/uL (0-0.7); Eosinophils % (A) 2 %; HCT 39.7 % (34.0-46.0); HGB 13.3 gm/dL (11.4-16.0); Lymphocytes # (A) 3.6 k/uL (1.0-4.8); Lymphocytes % (A) 35 %; MCH 29.5 pg (25.0-35.0); MCHC 33.4 g/dL (31.0-37.0); MCV 88.2 fL (80.0-100.0); Mean Platelet Volume 7.8; Monocytes # (A) 0.5 k/uL (0-1.0); Monocytes % (A) 5 %; Neutrophils # (A) 5.7 k/uL (1.3-7.7); Neutrophils % (A) 56 %; Platelet Count 259 k/uL (150-450); RDW 12.6 % (11.5-15.5); WBC 10.2 k/uL (3.8-10.6)
[2020-04-05 07:03] LABS: African American GFR (CKD) >90 (>60 ml/min/1.73 sqM); Anion Gap 13 mmol/L; Blood Urea Nitrogen 22 mg/dL (7-17); Calcium 9.3 mg/dL (8.4-10.2); Carbon Dioxide 23 mmol/L (22-30); Chloride 99 mmol/L (98-107); Cholesterol 131 mg/dL (<200); Glucose 138 mg/dL (74-99); HDL Cholesterol 48 mg/dL (40-60); LDL Cholesterol,Calculated 70 mg/dL (0-99); Non-African American GFR(CKD) 83 (>60 ml/min/1.73 sqM); Potassium 4.2 mmol/L (3.5-5.1); Sodium 135 mmol/L (137-145); Triglycerides 67 mg/dL (<150)
[2020-04-05] MEDS ORDERED: ASPIRIN 325 MG TAB PO SCH (09:00)
[2020-04-05] MEDS ORDERED: NITROGLYCERIN SL TABS 0.4 MG TAB SUBLINGUAL PRN (09:24)
[2020-04-05] MEDS ORDERED: SODIUM CHLORIDE 0.9% 1,000 ML in EMPTY BAG 1 BAG IV ONE (09:24)
[2020-04-05] MEDS ORDERED: ALPRAZolam 0.25 MG TAB PO PRN (09:24)
[2020-04-05] MEDS ORDERED: ALPRAZolam 0.5 MG TAB PO PRN (09:24)
[2020-04-05] MEDS: ASPIRIN 81 MG PO SCH (10:02)
[2020-04-05] MEDS: ATORVASTATIN 10 MG TAB PO SCH (10:02)
[2020-04-05] MEDS: LOSARTAN-HCTZ 50-12.5 MG 1 EACH TAB PO SCH (10:02)
[2020-04-05] MEDS: CYANOCOBALAMIN 500 MCG TAB PO SCH (10:03)
[2020-04-05] MEDS: METOPROLOL TARTRATE 50 MG TAB PO SCH ×2 (10:03→20:07)
[2020-04-05] MEDS: amLODIPine 5 MG TAB PO SCH (10:03)
[2020-04-05] MEDS ORDERED: ONDANSETRON 4 MG/2 ML VIAL IVP PRN (10:33)
--- NOTE | 2020-04-05 10:49 | CONS ---
CONSULTATION CHIEF COMPLAINT: Elevated troponin. This is an 79-year-old lady with history of hypertension, dyslipidemia, hypothyroidism, who presented to hospital complaining of feeling sick to her stomach and chest pain. The symptoms have been going on for the past 4 days. She used to be on fentanyl patch and was apparently trying to decrease the dose of fentanyl. She felt unwell, had midsternal chest discomfort that radiated to her left shoulder when she came to hospital where she got admitted. Her EKG does not reveal ischemic changes. She has had 3 sets of troponins and they have come back slightly elevated. The patient was in the hospital 2 weeks ago and at that time she had a stress test that was negative for ischemia. On this admission, a D-dimer was done, came back elevated, went on to have a V/Q scan that was negative for pulmonary embolism. Given the non ST-segment elevation DE and symptoms of chest pain, I am advising the patient to undergo cardiac catheterization for definitive diagnosis. The patient has been explained of risks, benefits and alternatives. Dr. TUNDE Ames, her primary chefs will perform this. PAST MEDICAL HISTORY: Significant for hypertension, hypothyroidism, dyslipidemia. CURRENT MEDICATIONS: Include metoprolol, Synthroid, Lipitor, [place], aspirin, Pepcid, losartan, amlodipine, fentanyl. ALLERGIC: To IV DYE, PINEAPPLE and SHELL FISH. FAMILY HISTORY: Significant for coronary artery disease. SOCIAL HISTORY: Negative for smoking. There is no history of EtOH abuse or drug abuse. REVIEW OF SYSTEMS: HEENT: Unremarkable. CARDIAC: As described above. RESPIRATORY: As described above. GI: Negative. GENITOURINARY: Negative. ALLERGY/IMMUNOLOGY: Negative. SKIN: Negative. MUSCULOSKELETAL: Significant for arthritis. PSYCHOSOCIAL: Negative. ENDOCRINE; Negative. DERMATOLOGICAL: Negative. CONSTITUTIONAL: Negative. ONCOLOGICAL: Negative. CERTIFIED SCRUM MASTER: Negative. Rest of the system review is not relevant. PHYSICAL EXAMINATION: On exam, patient is comfortable at rest. Vital signs are stable. There is no jugular venous distention. Chest exam revealed good air entry bilaterally. Heart exam reveals first and second heart sounds. No gallop. No murmur. No rub. Abdomen is soft, nontender. Exam of extremities did not reveal any edema. Peripheral pulses are felt. CERTIFIED SCRUM MASTER exam did not reveal focal neurological deficits. LABS: Show that the potassium is 4.2 creatinine is 0.6, hemoglobin is 13.3, platelet count is 259, LDL cholesterol is 70. ASSESSMENT: 1. Acute non ST-segment elevation myocardial infarction. 2. Hypertension. 3. Dyslipidemia. PLAN: The patient will undergo cardiac catheterization. She has IV DYE allergy and she will be prepped for the IODINE allergy. HEMA / KATHY: [id number] /
--- NOTE | 2020-04-05 14:51 | P.PN ---
Subjective Progress Note Date: 04/05/20 Principal diagnosis: Ms. Youssef is a 79-year-old female with a past medical history of hypertension, hyperlipidemia, thyroid cancer, left breast cancer status post mastectomy, oste oarthritis coming into the hospital complaining that she has been feeling sick in her stomach and chest for the past 4 days. Patient states that she takes 50 mg of fentanyl patch for her osteoarthritis and it has been changed to 25 mg 4 days back. She has been on this for almost 2-3 years. Since decreasing the dose patient started to feel sick in her stomach with nausea. She denies having any vomiting. Patient also noticed to have chest discomfort mostly in the midsternal area radiating to her left shoulder. She also thinks that her heart rate did go up a little bit. Patient denies having any fevers, chills or rigors. She denies having any difficulty in breathing or cough. She denies having any diarrhea or constipation. Denies exposure to COVID- 19 pts. Denies having any recent travel. No orthopnea, PND or lower extremity swelling. In the emergency patient had a chest x-ray that was within normal limits. EKG showing sinus tachycardia at [address] or T-wave changes. She has labs done showing white count of 10.2 hemoglobin 15.1. Metabolic panel within normal limits. Troponin less than 0.012. Lema virus PCR pending currently. Currently patient denies having any active chest pain. She states that she has mild headaches. 04/05/2020 Patient is seen and evaluated in follow-up today and denies having any chest pain shortness of breath, or palpitations although is having some intermittent nausea. Zofran was ordered when necessary. Patient was seen and evaluated by cardiology and recommending cardiac catheterization in the morning. Initial troponin was negative although repeat was 0.053 and then 0.070. Patient remains on a heparin drip and will continue at this time. Patient denies any vomiting and was able to tolerate breakfast with periods of nausea noted after as mentioned previously. Patient is afebrile. Covid 19 testing was negative. Objective - Vital Signs Vital signs: Vital Signs Temp 98.3 F 04/05/20 08:00 Pulse 70 04/05/20 08:00 Resp 16 04/05/20 08:00 BP 137/59 04/05/20 08:00 Pulse Ox 97 04/05/20 08:00 Intake & Output 04/04/20 04/05/20 04/05/20 18:59 06:59 18:59 Intake Total 240 580 Balance 240 580 Weight 99.79 kg 98 kg Intake: IV 100 .9 100 Oral 240 480 Other: Voiding Method Toilet # Voids 2 2 - Exam GEN. APPEARANCE: alert, in no apparent distress HEAD EXAM: atraumatic, normocephalic, normal inspection EYE EXAM: normal appearance, PERRL, EOMI. no pallor. No icterus. ENT EXAM: normal exam, mucous membranes moist NECK EXAM: normal inspection. No JVD. No thyromegaly. RESPIRATORY EXAM: normal lung sounds bilaterally. No wheeze or crackles. CARDIOVASCULAR EXAM: regular rate, tachycardia, normal heart sounds. GI/ABDOMINAL EXAM: soft, normal bowel sounds. Nontender, nondistended. No guarding or rigidity. EXTREMITIES EXAM: No pedal edema. NEUROLOGICAL EXAM: alert, oriented X3, no focal deficits on gross exam PSYCHIATRIC EXAM: normal affect, normal mood SKIN EXAM: warm, dry, intact, normal color. - Labs CBC & Chem 7: 04/05/20 05:35 04/05/20 05:35 Labs: Abnormal Lab Results - Last 24 Hours (Table) 04/04/20 04/04/20 04/04/20 Range/Units 15:30 15:30 21:07 APTT (22.0-30.0) sec D-Dimer 0.70 H (<0.60) mg/L FEU Sodium (137-145) mmol/L BUN (7-17) mg/dL Glucose (74-99) mg/dL Troponin I 0.053 H* 0.070 H* (0.000-0.034) ng/mL 04/05/20 04/05/20 Range/Units 05:35 05:35 APTT 49.7 H (22.0-30.0) sec D-Dimer (<0.60) mg/L FEU Sodium 135 L (137-145) mmol/L BUN 22 H (7-17) mg/dL Glucose 138 H (74-99) mg/dL Troponin I (0.000-0.034) ng/mL Assessment and Plan Assessment: Chest discomfort; Rule out ACS Elevated troponin: Initial troponin was 0.012, trending upwards at 0.053 then 0.070. Cardiology following and patient will undergo cardiac catheterization in the morning Elevated d-dimer; 0.70. VQ scan shows low probability of PE. Patient remains on heparin drip. Covid 19 ruled out Palpitations Opioid dependence Hypertension Hyperlipidemia Left breast cancer status post mastectomy Thyroid cancer Former smoker PLAN: Patient is admitted for ACS rule out. Serial troponins elevating and will undergo cardiac catheterization with cardiology tomorrow. D-dimer slightly elevated at 0.70. VQ scan done as patient is ALLERGIC to IV dye contrast showing low probability of PE. Covid 19 testing was negative. Her symptoms could be related to opioid withdrawal as her fentanyl patch has been decreased from 50 to 25 recently and her symptoms started around the same time. Patient does not want to go back to the dose of 50, we'll continue to monitor. We will resume her home medications. Further recommendations to follow depending on the progress of the patient.
[2020-04-05] MEDS ORDERED: diphenhydrAMINE 50 MG CAP PO ONE (18:00)
[2020-04-05] MEDS ORDERED: predniSONE 50 MG TAB PO ONE (18:00)
[2020-04-05] MEDS: HEPARIN SOD,PORK IN 0.45% NACL 25,000 UNIT in 0.45% NACL 1 250ML.BAG IV SCH (23:10)
[2020-04-06] MEDS: NITROGLYCERIN OINT 1 INCH/GM PACKET TOPICAL SCH (05:39)
[2020-04-06 05:42] VITALS: TEMP 98.5
[2020-04-06] MEDS: ATORVASTATIN 10 MG TAB PO SCH (05:50)
[2020-04-06] MEDS: ASPIRIN 81 MG PO SCH (05:50)
[2020-04-06] MEDS: METOPROLOL TARTRATE 50 MG TAB PO SCH (05:50)
[2020-04-06] MEDS: LEVOTHYROXINE 50 MCG TAB PO SCH (05:50)
[2020-04-06] MEDS: amLODIPine 5 MG TAB PO SCH (05:51)
[2020-04-06] MEDS: CYANOCOBALAMIN 500 MCG TAB PO SCH ×2 (05:51→09:00)
[2020-04-06] MEDS: LOSARTAN-HCTZ 50-12.5 MG 1 EACH TAB PO SCH (05:56)
[2020-04-06] MEDS ORDERED: ASPIRIN 81 MG PO STA (06:58)
[2020-04-06] MEDS ORDERED: IV FLUID CONTINUATION 1,000 ML IV ONE (07:15)
[2020-04-06] MEDS ORDERED: VERAPAMIL 2.5 MG/ML 2 ML AMP ONE (07:23)
[2020-04-06] MEDS ORDERED: LIDOCAINE 1% INJ 10MG/ML (20 ML MDV) ONE (07:23)
[2020-04-06] MEDS ORDERED: diphenhydrAMINE 50 MG/ML 1 ML VIAL ONE (07:36)
[2020-04-06] MEDS ORDERED: methylPREDNISolone SOD SUCCI 125 MG/2 ML VIAL ONE (07:36)
[2020-04-06] MEDS ORDERED: MIDAZOLAM 2 MG/2 ML VIAL IV ONE (07:40)
[2020-04-06] MEDS ORDERED: methylPREDNISolone SOD SUCCI 125 MG/2 ML VIAL IV ONE (07:40)
[2020-04-06] MEDS ORDERED: diphenhydrAMINE 50 MG/ML 1 ML VIAL IVP ONE (07:40)
[2020-04-06] MEDS: LIDOCAINE 1% INJ 10MG/ML (20 ML MDV) SQ ONE ×2 (07:41→08:00)
[2020-04-06] MEDS ORDERED: HEPARIN SODIUM 1,000 UN/ML (10ML VL) ONE (07:46)
[2020-04-06] MEDS ORDERED: VERAPAMIL SYRINGE (5 MG/10 ML) INTRAARTER ONE (07:47)
[2020-04-06] MEDS ORDERED: HEPARIN SODIUM 1,000 UN/ML (10ML VL) IV ONE (07:49)
[2020-04-06] MEDS: NITROGLYCERIN 1000MCG/10ML SYRINGE INTRAARTER ONE ×2 (07:54→08:12)
[2020-04-06] MEDS ORDERED: IOPAMIDOL-370 100ML BTL INJ ONE (08:11)
[2020-04-06] MEDS ORDERED: RX INFO: IV CONTRAST WAS GIVEN 1 EACH MISC MISCELLANE PRN (08:26)
[2020-04-06] MEDS ORDERED: SODIUM CHLORIDE 0.9% 1,000 ML IV SCH (08:30)
[2020-04-06] MEDS ORDERED: amLODIPine 5 MG TAB PO SCH (09:00)
[2020-04-06] MEDS ORDERED: ATORVASTATIN 10 MG TAB PO SCH (09:00)
[2020-04-06] MEDS ORDERED: amLODIPine 5 MG TAB PO STA (09:09)
--- NOTE | 2020-04-06 09:31 | CC ---
CARDIAC CATHETERIZATION REPORT DATE OF SERVICE: 04/06/2020 PROCEDURE: Left heart catheterization and coronary angiography. PERFORMED BY: Dr. Kye Ames. Moderate conscious sedation time was 33 minutes. Patient was administered Versed. Oxygen saturation, hemodynamics and EKG were monitored closely. CLINICAL INFORMATION: Mrs. Tamica Youssef is an 79-year-old lady with hypertension, hyperlipidemia, who has been having recurrent episodes of chest pain, had a negative stress test on March 23, but got hospitalized again with elevated blood pressure, troponin elevation and chest pain. Even though stress test was negative, given her clinical presentation and troponin elevation, she was advised coronary angiography after due discussion regarding risks, benefits, and options. PROCEDURE NOTE: Under local anesthesia and strict aseptic precautions, a 6-Kyrgyz introducer was placed in the right radial artery. Because of intense spasm I could not advance the catheter beyond the brachial artery and therefore we abandoned the procedure and went ahead from the right femoral approach. Under strict aseptic precautions and local anesthesia, a 6- Kyrgyz introducer was placed in the right femoral artery. Using a JL3.5 and JR4 catheters, I performed coronary angiography and the same right catheter was used to check LV pressures. LV gram was not performed. The sheath was taken out and Angio- Seal device used to secure hemostasis. A TR band was placed in the right radial site. The saturation of the fingers of the right hand was 93%. Patient tolerated the procedure well without complication. She does not have any significant obstructive CAD. Findings were discussed with her in detail. There was no family members available and she wished to talk to her family herself. CARDIAC CATHETERIZATION FINDINGS: The left end-diastolic pressure was 8 mmHg without any gradient across the aortic valve. CORONARY ANGIOGRAPHY FINDINGS: RIGHT CORONARY ARTERY: Mild to moderate calcification. No significant disease. Very dominant vessel, distally bifurcates into a large PDA and PLV, both of which supply a sizable amount of myocardium. No significant disease in the super dominant RCA. PDA is smaller, PLV is larger. LEFT MAIN CORONARY ARTERY: This is a very long artery that trifurcates into LAD, circumflex and ramus intermedius. No significant disease in the left main, which is very long. Distally there is mild tapering. LEFT ANTERIOR DESCENDING CORONARY ARTERY: Good caliber vessel extends along the anterior wall, gives off a large diagonal and septal branches, runs all the way to the apex. No significant disease, minor irregularities. RAMUS INTERMEDIUS: This is a fair caliber, fair distribution vessel that runs laterally, supplies a fair amount of myocardium. No significant disease. Tortuous has minor irregularities. LEFT POSTERIOR CIRCUMFLEX CORONARY ARTERY: Nondominant vessel gives off a good-sized obtuse marginal, then an AV groove branch. Minor irregularities. No significant disease. Left ventriculogram was not performed. FINAL IMPRESSION: This patient has a right dominant system. Normal filling pressures. No gradient across the aortic valve and no significant coronary artery disease. RECOMMENDATIONS: Findings were discussed with the patient. Continued medical therapy with optimal BP control was advised, risk factor modification advised. Patient will hopefully be discharged later on today or early tomorrow. I will see her in the office in one week. MMODL / IJN: [id number] /
[2020-04-06 12:35] VITALS: PULSE 70
[2020-04-06] MEDS: HYDROcodone/APAP 10-325MG 1 EACH TAB PO PRN (14:02)
[2020-04-06 15:18] VITALS: BP 150/74
--- NOTE | 2020-04-07 08:59 | P.DS ---
Providers Date of admission: 04/04/20 11:28 Expected date of discharge: 04/07/20 Attending physician: Lida Mccormack Consults: 04/04/20 11:28 Consult Physician Urgent Consulting Provider: [facility] Consult Reason/Comments: Unstable angina Do you want consulting provider notified?: Yes Primary care physician: Scott Jerry [facility] Course: Final diagnosis Chest discomfort; Ruled out ACS Elevated troponin Elevated d-dimer, VQ scan shows low probability of PE Covid 19 ruled out Palpitations Opioid dependence Hypertension Hyperlipidemia Left breast cancer status post mastectomy Thyroid cancer Former smoker Discharge disposition Patient is being discharged in a stable condition with guarded prognosis to home. Patient will follow-up with Dr. Rice upon discharge. Patient will also follow-up with Dr. Kwaku cortez in one week. Total time taken is 35 minutes. History of present illness This is a 79-year-old female who was recently admitted with feelings of sickness in her stomach and chest for the last 4 days and is being closely monitored. Cardiology evaluating the patient is patient's initial troponin was negative although repeats were positive. Patient was unsure possible feelings of withdrawal due to her recent fentanyl patch dose being decreased. Patient had some mild nausea although no vomiting noted. Patient denied any chest pain although troponins became positive and patient underwent cardiac catheterization showing a right dominant system with normal filling pressures and no gradient across the aortic valve and no significant coronary artery disease. Patient recently underwent a stress test that was negative a few weeks back. Patient will be following up with cardiology in the outpatient setting. Currently no reports of chest pain, shortness of breath, or palpitations. No reports of fever. Patient is tolerating diet with no reports of nausea or vomiting noted. Patient will be discharged today to home. On exam vital signs are stable. Temp is 98.5F, pulse is 60, respirations are 16, blood pressure is 138/63, oxygen saturation is 98% on room air. Cardio S1, S2 are present. Respiratory system shows diminished breath sounds with no wheezing or rhonchi noted. Abdomen is soft and nontender. Nervous system shows no focal deficits. Please refer to medication reconciliation sheet for a list of medications. Patient Condition at Discharge: Stable Plan - Discharge Summary Discharge Rx Participant: No New Discharge Prescriptions: Continue Metoprolol Tartrate [Lopressor] 50 mg PO BID Levothyroxine Sodium [Synthroid] 50 mcg PO DAILY Atorvastatin [Lipitor] 5 mg PO DAILY HYDROcodone/APAP 10-325MG [[place] 10-325] 1 tab PO Q8H PRN PRN Reason: Pain Cyanocobalamin (Vitamin B-12) [Vitamin B-12] 2,000 mcg PO DAILY Aspirin 81 mg PO DAILY chew amLODIPine [Norvasc] 5 mg PO DAILY Famotidine [Pepcid] 20 mg PO BID PRN PRN Reason: UPSET STOMACH fentaNYL 25MCG/HR PATCH [Duragesic 25MCG/HR] 25 mcg TRANSDERM Q72H Losartan/Hydrochlorothiazide [Losartan-Hctz 100-25 mg Tab] 1 tab PO DAILY Discharge Medication List Metoprolol Tartrate [Lopressor] 50 mg PO BID 10/18/14 [History] Levothyroxine Sodium [Synthroid] 50 mcg PO DAILY 12/11/15 [History] Atorvastatin [Lipitor] 5 mg PO DAILY 08/18/19 [History] Cyanocobalamin (Vitamin B-12) [Vitamin B-12] 2,000 mcg PO DAILY 03/02/20 [History] HYDROcodone/APAP 10-325MG [[place] 10-325] 1 tab PO Q8H PRN 03/02/20 [History] Aspirin 81 mg PO DAILY chew 03/03/20 [Rx] Famotidine [Pepcid] 20 mg PO BID PRN 04/04/20 [History] Losartan/Hydrochlorothiazide [Losartan-Hctz 100-25 mg Tab] 1 tab PO DAILY 04/04/20 [History] amLODIPine [Norvasc] 5 mg PO DAILY 04/04/20 [History] fentaNYL 25MCG/HR PATCH [Duragesic 25MCG/HR] 25 mcg TRANSDERM Q72H 04/04/20 [History] Follow up Appointment(s)/Referral(s): Peter Ames MD [STAFF PHYSICIAN] - 04/13/20 2:45 pm (Saturday -previously scheduled appointment was canceled) Scott Jerry DO [Primary Care Provider] - 1-2 days (Office closed at noon today. 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
== END 2020-04-06 17:45 | disposition home or self-care (01) ==
LOC: EC 09:17 → 3SCARD 11:28 → INTOOBSV 04-06 07:33 → OBSVTOIN 04-06 07:33
PROVIDERS: ADMIT Internal Medicine; ATTEND Internal Medicine
DX: R07.89 Other chest pain (principal); R11.0 Nausea; I77.1 Stricture of artery; R79.89 Other specified abnormal findings of blood chemistry; R79.1 Abnormal coagulation profile; R00.2 Palpitations; Z79.891 Long term (current) use of opiate analgesic; I10 Essential (primary) hypertension; E78.5 Hyperlipidemia, unspecified; C50.912 Malignant neoplasm of unspecified site of left female breast; C73 Malignant neoplasm of thyroid gland; R00.0 Tachycardia, unspecified; M19.90 Unspecified osteoarthritis, unspecified site; E89.0 Postprocedural hypothyroidism; Z11.59 Encounter for screening for other viral diseases; E66.9 Obesity, unspecified; Z68.33 Body mass index [BMI] 33.0-33.9, adult; Z87.891 Personal history of nicotine dependence; Z90.12 Acquired absence of left breast and nipple; Z79.899 Other long term (current) drug therapy; Z79.890 Hormone replacement therapy; Z79.82 Long term (current) use of aspirin; Z90.49 Acquired absence of other specified parts of digestive tract; Z90.710 Acquired absence of both cervix and uterus; Z90.3 Acquired absence of stomach [part of]; Z87.11 Personal history of peptic ulcer disease; Z91.041 Radiographic dye allergy status; Z91.048 Other nonmedicinal substance allergy status; Z91.018 Allergy to other foods; Z91.013 Allergy to seafood; Z82.49 Family history of ischemic heart disease and other diseases of the circulatory system; Z82.61 Family history of arthritis; Z83.49 Family history of other endocrine, nutritional and metabolic diseases; Z80.3 Family history of malignant neoplasm of breast
CPT/HCPCS: 96376; 96365; 96366; 93005 ×2; 99291; 36415; 93458; 85379; 80061; 80053; 80048; 83735; 84484; 85025 ×2; 85610; 85730 ×2; 87635; 71046; 78582; G0378 ×3; C1760; C1769 ×4; C1894 ×2; A9540; A9567; J2250; J1200; J1644 ×4; J2930; J2001; J7512; Q9967

== ENCOUNTER → 2020-05-25 | Outpatient (CLI) | payer MEDICARE, BC ==
--- NOTE | 2020-05-25 10:21 | MM ---
Reason for exam: follow-up at short interval from prior study. Last mammogram was performed 10 months ago. History: Patient is postmenopausal, has history of other cancer at age 37, and has history of breast cancer at age 36. Family history of breast cancer in sister at age 60. Mastectomy of the left breast, 1976. Benign excisional biopsy of the right breast. Took hormonal contraceptives for 10 years. Physical Findings: Nurse did not find any significant physical abnormalities on exam. MG 3D Diag Mammo W/Cad RT CC and MLO view(s) were taken of the right breast. Prior study comparison: July 22, 2019, right breast MG 3d diag mammo w/cad RT. July 09, 2018, right breast MG 3d diag mammo w/cad RT. There are scattered fibroglandular densities. There is chronic nodularity bilaterally. No significant new findings when compared with previous films. These results were verbally communicated with the patient and result sheet given to the patient on 05/25/20. ASSESSMENT: Incomplete: need additional imaging evaluation, BI-RAD 0 RECOMMENDATION: Ultrasound of the right breast.
--- NOTE | 2020-05-25 10:22 | USB ---
Reason for exam: additional evaluation requested from abnormal screening. History: Patient is postmenopausal, has history of other cancer at age 37, and has history of breast cancer at age 36. Family history of breast cancer in sister at age 60. Mastectomy of the left breast, 1976. Benign excisional biopsy of the right breast. Took hormonal contraceptives for 10 years. US Breast Limited RT Right limited breast ultrasound including focal area of concern, retroareolar and axilla demonstrates a 4 x 2 x 5mm oval, cystic lesion at 4 o'clock, a 3 x 3 x 2mm oval, cystic lesion at 6 o'clcok and a 5mm oval lymph node at the axilla. These results were verbally communicated with the patient and result sheet given to the patient on 05/25/20. ASSESSMENT: Benign, BI-RAD 2 RECOMMENDATION: Follow-up diagnostic mammogram of the right breast in 1 year.
== END | disposition home or self-care (01) ==
LOC: RADMAMWWP 08:33
PROVIDERS: ATTEND Surgery
DX: R92.8 Other abnormal and inconclusive findings on diagnostic imaging of breast (principal)
CPT/HCPCS: 77065; 76642; G0279; 77061

== ENCOUNTER → 2020-06-02 | Outpatient (CLI) | payer MEDICARE, BC ==
--- NOTE | 2020-06-02 09:06 | P.PN ---
Subjective Progress Note Date: 06/02/20 Principal diagnosis: history of left breast cancer, right radiographic 6 month follow up Tamica is a 78-year-old white female who presents for breast evaluation. Of importance is the fact that she underwent a left breast mastectomy approximately 30 years ago for a very small tumor. She states that she did not have any chemotherapy, radiation or hormonal therapy. She was told this was a breast cancer. She was 36 at the time, she did not have any genetic testing. The patient has routine screening mammograms performed on a regular basis. She had a mammogram performed of the right breast in June 2019 this revealed chronic nodularity and an ultrasound was recommended. On ultrasound she was noted to have cystic lesions which were felt to be most likely benign. Repeat right breast mammogram and ultrasound in 6 months was recommended. The patient had not noted any masses lumps or nodules in her breast. She had no complaints of any nipple discharge or skin changes. She had no history of the recent infection or trauma to the breast. She had no pain in her breast. She did have a biopsy of the right breast many years ago which was benign. The patient drinks half cup of coffee per day. She does not smoke and is not exposed to secondhand smoke. She does like chocolate, which she eats daily. She does not take hormones or soy products. She underwent a right breast mammogram and ultrasound on 7119. The mammogram revealed chronic nodularity. An ultrasound was recommended. The ultrasound was performed on the same day and revealed cystic changes. This was felt to be benign BIRADS 2 and follow-up mammogram of the right breast in 1 year was recommended. The patient has not reported any new lumps masses or nodules in her breast at this time. Family history: patient: thyroid cancer patient: breast cancer at 37 sister: of breast cancer at 62 Hormonal History: menarche: 14 , breast fed: no, age at : 23 menopause: late 40's BCP: 10 years hormones: none Past Surgical History 1. skin biopsy nose 2. thyroid cancer 1 lobe removed 3. gallbladder 4. PUD 5. hysterectomy took ovaries 6. mastectomy left breast Medical History: 1. arthritis Social History: smoke: stopped 40 years ago alcohol: noen drugs: none - Constitutional Constitutional: Denies chills, Denies fever - EENT Comment: glasses for reading Eyes: denies blurred vision, denies pain Ears: deny: decreased hearing, tinnitus Ears, nose, mouth and throat: Denies headache, Denies sore throat - Breasts Breasts: bilateral: as per HPI - Cardiovascular Cardiovascular: Reports high blood pressure - Respiratory Respiratory: Denies cough - Gastrointestinal Comment: PUD status post surgery in past - Genitourinary (Female) Genitourinary: Denies dysuria, Denies hematuria - Menstruation Menstruation: Reports postmenopausal - Musculoskeletal Comment: arthritis - Integumentary Integumentary: Denies rash - Neurological Neurological: Denies numbness, Denies weakness - Psychiatric Psychiatric: Denies anxiety, Denies depression - Endocrine Endocrine: Denies fatigue, Denies weight change - Hematologic/Lymphatic Comment: none - Allergic/Immunologic Comment: shellfish, pineapple Allergic/Immunologic: Reports as per HPI Past Medical History Past Medical History: Cancer, Hyperlipidemia, Hypertension, Osteoarthritis (OA), Thyroid Disorder Additional Past Medical History / Comment(s): L breast cancer with mastectomy, thyroid cancer, History of Any Multi-Drug Resistant Organisms: None Reported Past Surgical History: Breast Surgery, Cholecystectomy, Hysterectomy Additional Past Surgical History / Comment(s): Partial thyroidectomy, EGD, 1/2 gastrectomy due to ulcers, L breast mastectomy. Past Anesthesia/Blood Transfusion Reactions: No Reported Reaction Past Psychological History: No Psychological Hx Reported Additional Psychological History / Comment(s): . Smoking Status: Former smoker Past Alcohol Use History: None Reported Additional Past Alcohol Use History / Comment(s): Pt smoked from [id number] SMOKED 1/4-1/2 PPD Past Drug Use History: None Reported Objective - Vital Signs Vital signs: Vital Signs Temp 98.2 F 06/02/20 08:43 Pulse 62 06/02/20 08:43 Resp 18 06/02/20 08:43 BP 124/74 06/02/20 08:43 Pulse Ox 97 06/02/20 08:43 Intake & Output 06/01/20 06/02/20 06/02/20 18:59 06:59 18:59 Weight 99.79 kg - Exam BMI 34.5 - Constitutional General appearance: Present: obese - EENT Eyes: Present: EOMI ENT: Present: hearing grossly normal - Neck Neck: Present: normal ROM - Respiratory Respiratory: bilateral: CTA - Cardiovascular Rhythm: regular Heart sounds: normal: S1, S2 - Gastrointestinal General gastrointestinal: Present: soft - Integumentary Integumentary: Present: normal turgor - Psychiatric Psychiatric: Present: A&O x's 3, appropriate affect, intact judgment & insight - Additional findings Additional findings: Breast examination: Right breast: Well-healed scar from prior biopsy, no dominant masses or nodules of concern, fibrocystic changes Right axilla: No adenopathy of concern Left chest wall: Well-healed scar from prior mastectomy no evidence of recurrent cancer Left axilla: No adenopathy of concern Assessment and Plan Assessment: Impression: 1. Personal history of breast cancer 2. Personal history of thyroid cancer 3. 6 month repeat mammogram and ultrasound felt to be benign 4. Hypertension 5. Arthritis 6. Elevated BMI 34.5 7. Status post left mastectomy Plan: 1. Repeat mammogram and ultrasound of the right breast in 1 year with appointment at that time 2. Patient to see us if she still notes anything sooner Cc: Dr. Rice Encounter: 15 minutes
[2020-06-03 09:58] VITALS: BP 124/74; PULSE 62; RESP 18; TEMP 98.2
== END | disposition home or self-care (01) ==
LOC: WWCWWP 08:22
PROVIDERS: ATTEND Surgery
DX: Z53.9 Procedure and treatment not carried out, unspecified reason (principal)

== ENCOUNTER 2021-04-14 14:29 | Emergency (ER) | payer MEDICARE, BC ==
[2021-04-14 15:24] VITALS: RESP 18
[2021-04-14 16:33] LABS: Basophils % (A) 0 %; Eosinophils # (A) 0.1 k/uL (0-0.7); Eosinophils % (A) 2 %; HCT 38.2 % (34.0-46.0); HGB 13.3 gm/dL (11.4-16.0); Lymphocytes # (A) 2.2 k/uL (1.0-4.8); Lymphocytes % (A) 28 %; MCH 30.6 pg (25.0-35.0); MCHC 34.7 g/dL (31.0-37.0); MCV 88.2 fL (80.0-100.0); Mean Platelet Volume 7.1; Monocytes # (A) 0.5 k/uL (0-1.0); Monocytes % (A) 6 %; Neutrophils # (A) 4.9 k/uL (1.3-7.7); Neutrophils % (A) 62 %; Platelet Count 231 k/uL (150-450); RBC 4.33 m/uL (3.80-5.40); RDW 12.1 % (11.5-15.5); WBC 7.9 k/uL (3.8-10.6)
[2021-04-14 16:37] LABS: Appearance,Urine Cloudy (Clear); Bacteria,Urine Rare /hpf; Bilirubin,Urine Negative (Negative); Blood,Urine Negative (Negative); Color,Urine Yellow; Glucose,Urine (UA) Negative (Negative); Hyaline Casts,Urine 26 /lpf (0-2); Ketones,Urine Trace (Negative); Leukocyte Esterase,Urine Large (Negative); Mucus,Urine Many /hpf; Nitrite,Urine Negative (Negative); Protein,Urine Trace (Negative); RBC,Urine 4 /hpf (0-5); Specific Gravity,Urine 1.022 (1.001-1.035); Squamous Epithelial Cell,Urine 4 /hpf (0-4); Uric Acid Crystals,Urine Rare /hpf; Urobilinogen,Urine <2.0 mg/dL (<2.0); WBC,Urine 22 /hpf (0-5)
--- NOTE | 2021-04-14 16:44 | ED ---
Recheck HPI - General Chief Complaint: Recheck/Abnormal Lab/Rx Stated Complaint: back & leg pain Time Seen by Provider: 04/14/21 15:30 Source: patient Mode of arrival: ambulatory Limitations: no limitations - History of Present Illness Initial Comments: Patient is an 80-year-old female presenting to the emergency Department with complaints of generalized body aches for the past 5 days. Patient states she went to see her doctor 2 days ago for the same issue, told her to take some ibuprofen. She states she has been trying now over the last 2 days but her body aches continue. She states she is having aches all around her shoulders, back, legs and in her arms. She denies any falls or trauma, she denies any fevers or chills. She states she's been eating and drinking okay, no nausea or vomiting. She denies any diarrhea. She has no specific complaints of pain anywhere in particular just generalized body aches. She denies any chest pain or shortness of breath. She states she has been fully vaccinated against Covid. She denies having a cough. No dysuria. She denies any changes in medications. She has no further complaints at this time. Upon arrival to the ER, her vital signs are stable. - Related Data Home Medications Medication Instructions Recorded Confirmed Metoprolol Tartrate [Lopressor] 50 mg PO BID 10/18/14 06/02/20 Levothyroxine Sodium [Synthroid] 50 mcg PO QAM 12/11/15 06/02/20 Atorvastatin [Lipitor] 5 mg PO QAM 08/18/19 06/02/20 Cyanocobalamin (Vitamin B-12) 2,000 mcg PO QAM 03/02/20 06/02/20 [Vitamin B-12] HYDROcodone/APAP 10-325MG [[place] 1 tab PO Q8H PRN 03/02/20 06/02/20 10-325] fentaNYL 25MCG/HR PATCH [Duragesic 25 mcg TRANSDERM Q72H 04/04/20 06/02/20 25MCG/HR] Aspirin 81 mg PO QAM 06/02/20 06/02/20 Enalapril [Vasotec] 20 mg PO BID 06/02/20 06/02/20 cloNIDine HCL [Catapres] 0.1 mg PO HS 06/02/20 06/02/20 Previous Rx's Medication Instructions Recorded Cephalexin [Keflex] 500 mg PO BID 5 Days #10 cap 04/14/21 Allergies Allergy/AdvReac Type Severity Reaction Status Date / Time Iodinated Contrast Media Allergy Severe Rash/Hives Verified 04/14/21 15:24 [Iodinated Contrast Media - IV Dye] iodine Allergy Rash/Hives Verified 04/14/21 15:24 pineapple Allergy SORE IN Verified 04/14/21 15:24 MOUTH shellfish derived Allergy SEVERE Verified 04/14/21 15:24 VOMITING Review of Systems ROS Statement: Those systems with pertinent positive or pertinent negative responses have been documented in the HPI. ROS Other: All systems not noted in ROS Statement are negative. Past Medical History Past Medical History: Cancer, Hyperlipidemia, Hypertension, Osteoarthritis (OA), Thyroid Disorder Additional Past Medical History / Comment(s): L breast cancer with mastectomy, thyroid cancer, History of Any Multi-Drug Resistant Organisms: None Reported Past Surgical History: Breast Surgery, Cholecystectomy, Hysterectomy Additional Past Surgical History / Comment(s): Partial thyroidectomy, EGD, 1/2 gastrectomy due to ulcers, L breast mastectomy. Past Anesthesia/Blood Transfusion Reactions: No Reported Reaction Past Psychological History: No Psychological Hx Reported Smoking Status: Never smoker Past Alcohol Use History: None Reported Past Drug Use History: None Reported - Past Family History Father History Unknown: Yes Additional Family Medical History / Comment(s): Father when pt was 1 yrs old. Mother Additional Family Medical History / Comment(s): Enlarged heart. Sister(s) Family Medical History: Cancer Additional Family Medical History / Comment(s): breast General Exam - General Exam Comments Initial Comments: GENERAL: Patient is well-developed and well-nourished. Patient is nontoxic and in no acute distress. HEAD: Atraumatic, normocephalic. EYES: Pupils equal round and reactive to light, extraocular movements intact, sclera anicteric, conjunctiva are normal. Eyelids were unremarkable. ENT: TMs normal, nares patent, oropharynx clear without exudates. Moist mucous membranes. NECK: Normal range of motion, supple without lymphadenopathy or JVD. LUNGS: Unlabored respirations. Breath sounds clear to auscultation bilaterally and equal. No wheezes rales or rhonchi. HEART: Regular rate and rhythm without murmurs, rubs or gallops. ABDOMEN: Soft, nontender, normoactive bowel sounds. No guarding, no rebound. No masses appreciated. : Deferred MUSCULOSKELETAL: Normal extremities with adequate strength and normal range of motion, no pitting or edema. No clubbing or cyanosis. NEUROLOGICAL: Patient is alert and oriented x 3. Motor and sensory are also intact. Cranial nerves II through XII grossly intact. Symmetrical smile. Normal speech, normal gait. PSYCH: Normal mood, normal affect. SKIN: Warm, Dry, normal turgor, no rashes or lesions noted. Limitations: no limitations Course Vital Signs 04/14/21 15:22 Temperature 98.2 F Pulse Rate 71 Respiratory 18 Rate Blood Pressure 171/75 O2 Sat by Pulse 98 Oximetry Medical Decision Making - Medical Decision Making Patient is an 80-year-old female presenting for complaints of generalized body aches for the last 4-5 days. She saw her PCP 2 days ago, they told her to take some ibuprofen. Her vitals have been stable, she has no other symptoms, no specific pains anywhere in particular. No chest pains, no cough. She has been fully vaccinated against Covid. His lab work is completely unremarkable, her urine does have some bacteria, WBCs, leukocyte esterase. After going over her lab work and urine with her, she did mention that she is having some urgency and frequency. Patient will be started on Keflex for UTI. Urine culture is pending. Patient does have an appointment with her PCP on Saturday for follow- up. Patient is stable for discharge. Patient is in agreement with this plan of care. Return parameters were discussed with the patient and they verbalized understanding. Case discussed with Dr. Correa. - Lab Data Result diagrams: 04/14/21 16:06 04/14/21 16:06 Lab Results 04/14/21 04/14/21 04/14/21 Range/Units 16:06 16:06 16:06 WBC 7.9 (3.8-10.6) k/uL RBC 4.33 (3.80-5.40) m/uL Hgb 13.3 (11.4-16.0) gm/dL Hct 38.2 (34.0-46.0) % MCV 88.2 (80.0-100.0) fL MCH 30.6 (25.0-35.0) pg MCHC 34.7 (31.0-37.0) g/dL RDW 12.1 (11.5-15.5) % Plt Count 231 (150-450) k/uL MPV 7.1 Neutrophils % 62 % Lymphocytes % 28 % Monocytes % 6 % Eosinophils % 2 % Basophils % 0 % Neutrophils # 4.9 (1.3-7.7) k/uL Lymphocytes # 2.2 (1.0-4.8) k/uL Monocytes # 0.5 (0-1.0) k/uL Eosinophils # 0.1 (0-0.7) k/uL Basophils # 0.0 (0-0.2) k/uL Sodium 139 (137-145) mmol/L Potassium 4.2 (3.5-5.1) mmol/L Chloride 103 (98-107) mmol/L Carbon Dioxide 25 (22-30) mmol/L Anion Gap 11 mmol/L BUN 20 H (7-17) mg/dL Creatinine 0.80 (0.52-1.04) mg/dL Est GFR (CKD-EPI)AfAm 80 (>60 ml/min/1.73 sqM) Est GFR (CKD-EPI)NonAf 70 (>60 ml/min/1.73 sqM) Glucose 118 H (74-99) mg/dL Calcium 9.8 (8.4-10.2) mg/dL Magnesium 2.0 (1.6-2.3) mg/dL Total Bilirubin 0.6 (0.2-1.3) mg/dL AST 39 H (14-36) U/L ALT 24 (4-34) U/L Alkaline Phosphatase 57 (38-126) U/L Total Protein 8.0 (6.3-8.2) g/dL Albumin 5.0 (3.5-5.0) g/dL Urine Color Yellow Urine Appearance Cloudy H (Clear) Urine pH 5.0 (5.0-8.0) Ur Specific [place] 1.022 (1.001-1.035) Urine Protein Trace H (Negative) Urine Glucose (UA) Negative (Negative) Urine Ketones Trace H (Negative) Urine Blood Negative (Negative) Urine Nitrite Negative (Negative) Urine Bilirubin Negative (Negative) Urine Urobilinogen <2.0 (<2.0) mg/dL Ur Leukocyte Esterase Large H (Negative) Urine RBC 4 (0-5) /hpf Urine WBC 22 H (0-5) /hpf Ur Squamous Epith Cells 4 (0-4) /hpf Uric Acid Crystals Rare H (None) /hpf Urine Bacteria Rare H (None) /hpf Hyaline Casts 26 H (0-2) /lpf Urine Mucus Many H (None) /hpf Disposition Clinical Impression: Body aches, UTI (urinary tract infection) Disposition: HOME SELF-CARE Condition: Stable Instructions (If sedation given, give patient instructions): Urinary Tract Infection in Women (ED) Additional Instructions: Please return to the Emergency Department if symptoms worsen or any other concerns. Please take antibiotics as prescribed. Follow-up with your family doctor on Saturday as discussed. Prescriptions: Cephalexin [Keflex] 500 mg PO BID 5 Days #10 cap Is patient prescribed a controlled substance at d/c from ED?: No Referrals: Scott Jerry DO [Primary Care Provider] - 1-2 days Time of Disposition: 17:17
[2021-04-14 17:00] LABS: Calcium 9.8 mg/dL (8.4-10.2); Potassium 4.2 mmol/L (3.5-5.1); Total Bilirubin 0.6 mg/dL (0.2-1.3)
[2021-04-14 17:17] VITALS: BP 159/75; PULSE 67; TEMP 97.8
== END 2021-04-14 17:27 | disposition home or self-care (01) ==
LOC: EC 14:29
DX: N39.0 Urinary tract infection, site not specified (principal); R52 Pain, unspecified; I10 Essential (primary) hypertension; E78.5 Hyperlipidemia, unspecified; M19.90 Unspecified osteoarthritis, unspecified site; Z79.82 Long term (current) use of aspirin; Z85.3 Personal history of malignant neoplasm of breast; Z85.850 Personal history of malignant neoplasm of thyroid
CPT/HCPCS: 36415; 80053; 81001; 83735; 85025; 87086; 99283

== ENCOUNTER → 2021-07-24 | Outpatient (CLI) | payer MEDICARE, BC ==
--- NOTE | 2021-07-24 11:51 | MM ---
Reason for exam: additional evaluation requested from prior study. Last mammogram was performed 1 year and 2 months ago. History: Patient is postmenopausal, has history of other cancer at age 37, and has history of breast cancer at age 36. Family history of breast cancer in sister at age 60. Mastectomy of the left breast, 1976. Benign excisional biopsy of the right breast. Took hormonal contraceptives for 10 years. Physical Findings: Nurse did not find any significant physical abnormalities on exam. MG 3D Diag Mammo W/Cad RT CC, MLO, and XCCL view(s) were taken of the right breast. Prior study comparison: May 25, 2020, right breast MG 3d diag mammo w/cad RT. July 22, 2019, right breast MG 3d diag mammo w/cad RT. The breast tissue is heterogeneously dense. This may lower the sensitivity of mammography. Stable nodular density right breast. These results were verbally communicated with the patient and result sheet given to the patient on 07/24/21. ASSESSMENT: Incomplete: need additional imaging evaluation, BI-RAD 0 RECOMMENDATION: Ultrasound of the right breast.
--- NOTE | 2021-07-24 11:52 | USB ---
Reason for exam: additional evaluation requested from abnormal screening. History: Patient is postmenopausal, has history of other cancer at age 37, and has history of breast cancer at age 36. Family history of breast cancer in sister at age 60. Mastectomy of the left breast, 1976. Benign excisional biopsy of the right breast. Took hormonal contraceptives for 10 years. US Breast Limited RT Right limited breast ultrasound including focal area of concern, retroareolar and axilla demonstrates a 0.5 x 0.2 x 0.6cm cystic lesion at 4 o'clock. These results were verbally communicated with the patient and result sheet given to the patient on 07/24/21. ASSESSMENT: Benign, BI-RAD 2 RECOMMENDATION: Routine screening mammogram of both breasts in 1 year.
== END | disposition home or self-care (01) ==
LOC: RADMAMWWP 10:21
PROVIDERS: ATTEND Surgery
DX: R92.2 Inconclusive mammogram (principal); N60.01 Solitary cyst of right breast; Z80.3 Family history of malignant neoplasm of breast; Z78.0 Asymptomatic menopausal state
CPT/HCPCS: 77065; 76642; G0279; 77061

== ENCOUNTER → 2021-07-27 | Outpatient (CLI) | payer MEDICARE, BC ==
[2021-07-27 10:51] VITALS: BP 158/68; PULSE 60; RESP 18; TEMP 98.2
--- NOTE | 2021-07-27 11:19 | P.PN ---
Subjective Progress Note Date: 07/27/21 Principal diagnosis: left breast cancer history of left breast cancer, right radiographic 6 month follow up Tamica is an 80-year-old white female who presents for breast evaluation. Of importance is the fact that she underwent a left breast mastectomy approximately 32 years ago for a very small tumor. She states that she did not have any chemotherapy, radiation or hormonal therapy. She was told this was a breast cancer. She was 36 at the time, she did not have any genetic testing. The patient has routine screening mammograms performed on a regular basis. She had a right breast mammogram which led to an ultrasound on 07-24-21 which was benign BIRAD 2. She is not complaining of any pain in her breast. She has no lumps masses or nodules of concern at this time. The patient drinks half cup of coffee per day. She does not smoke and is not exposed to secondhand smoke. She does like chocolate, which she eats daily. She does not take hormones or soy products. Family history: patient: thyroid cancer patient: breast cancer at 36 sister: of breast cancer at 62 Hormonal History: menarche: 14 , breast fed: no, age at : 23 menopause: late 40's BCP: 10 years hormones: none Past Surgical History 1. skin biopsy nose 2. thyroid cancer 1 lobe removed 3. gallbladder 4. PUD 5. hysterectomy took ovaries 6. mastectomy left breast Medical History: 1. arthritis Social History: smoke: stopped 40 years ago alcohol: none drugs: none - Constitutional Constitutional: Denies chills, Denies fever - EENT Comment: glasses for reading Eyes: denies blurred vision, denies pain Ears: deny: decreased hearing, tinnitus Ears, nose, mouth and throat: Denies headache, Denies sore throat - Breasts Breasts: bilateral: as per HPI - Cardiovascular Cardiovascular: Reports high blood pressure - Respiratory Respiratory: Denies cough - Gastrointestinal Comment: PUD status post surgery in past - Genitourinary (Female) Genitourinary: Denies dysuria, Denies hematuria - Menstruation Menstruation: Reports postmenopausal - Musculoskeletal Comment: arthritis - Integumentary Integumentary: Denies rash - Neurological Neurological: Denies numbness, Denies weakness - Psychiatric Psychiatric: Denies anxiety, Denies depression - Endocrine Endocrine: Denies fatigue, Denies weight change - Hematologic/Lymphatic Comment: none - Allergic/Immunologic Comment: shellfish, pineapple Allergic/Immunologic: Reports as per HPI Objective - Vital Signs Vital signs: Vital Signs Temp 98.2 F 07/27/21 10:48 Pulse 60 07/27/21 10:48 Resp 18 07/27/21 10:48 BP 158/68 07/27/21 10:48 Pulse Ox 97 07/27/21 10:48 Intake & Output 07/26/21 07/27/21 07/27/21 18:59 06:59 18:59 Weight 99.79 kg - Exam BMI 34.5 - Constitutional General appearance: Present: cooperative - EENT Eyes: Present: EOMI ENT: Present: hearing grossly normal - Neck Neck: Present: normal ROM - Respiratory Respiratory: bilateral: CTA - Cardiovascular Rhythm: regular Heart sounds: normal: S1, S2 - Gastrointestinal General gastrointestinal: Present: soft - Integumentary Integumentary: Present: normal turgor - Musculoskeletal Musculoskeletal Comment(s): uses a walker - Psychiatric Psychiatric: Present: A&O x's 3, appropriate affect, intact judgment & insight - Additional findings Additional findings: Breast Exam: BRA: 42D inspection: grade 3 ptosis palpation: right breast: Upper glandular tissue, no dominant masses or nodules of concern, fibrocystic changes Right axilla: No adenopathy of concern Left chest wall: No evidence of recurrent cancer Left axilla: No adenopathy of concern Assessment and Plan Assessment: Impression: 1. Fibrocystic changes right breast 2. No evidence of recurrent left breast cancer 3. Arthritis/uses walker Plan: 1. Repeat right breast mammogram in 1 year with physician exam at that time 2. Patient would like to see a administrative court justice CC: Dr. Jerry
== END ==
LOC: WWCWWP 10:35
PROVIDERS: ATTEND Surgery
DX: N60.11 Diffuse cystic mastopathy of right breast (principal); M19.90 Unspecified osteoarthritis, unspecified site; Z85.3 Personal history of malignant neoplasm of breast; Z90.12 Acquired absence of left breast and nipple; Z87.891 Personal history of nicotine dependence; Z91.041 Radiographic dye allergy status; Z91.013 Allergy to seafood; Z91.018 Allergy to other foods

== ENCOUNTER → 2022-07-26 | Outpatient (CLI) | payer MEDICARE, BC ==
--- NOTE | 2022-07-26 10:49 | MM ---
Reason for Exam: Hx of breast cancer, mastectomy. Last mammogram was performed 1 year(s) and 1 month(s) ago. Patient History: Menarche at age 14. First Full-Term at age 26. Left ovary removed at age 39. Right ovary removed at age 39. Hysterectomy at age 39. Postmenopausal. Breast cancer, left, age 36. Patient used Hormonal Contraceptives for 10 years. 1977, Mastectomy on the Left side. Benign Excisional Biopsy on the right side. Sister had breast cancer, age 60. Prior Study Comparison: 07/22/2019 Right Diagnostic Mammogram, [facility]. 05/25/2020 Right Diagnostic Mammogram, [facility]. 07/24/2021 Right Diagnostic Mammogram, [facility]. Tissue Density: Right: There are scattered fibroglandular densities. Findings: Analyzed By CAD. There are 2 stable small round well-circumscribed masses in the right breast. There are 2-3 scattered benign-appearing round calcifications in the right breast redemonstrated. Benign-appearing right axillary lymph nodes redemonstrated. Overall Assessment: Benign, BI-RAD 2 Management: Screening Mammogram of the right breast. A clinical breast exam by your physician is recommended on an annual basis and results should be correlated with mammographic findings. This exam should not preclude additional follow-up of suspicious palpable abnormalities. Results were given to the patient verbally at the time of exam. Electronically signed and approved by: Estevan Knapp M.D.
== END | disposition home or self-care (01) ==
LOC: RADMAMWWP 10:18
PROVIDERS: ATTEND Surgery
DX: R92.8 Other abnormal and inconclusive findings on diagnostic imaging of breast (principal); Z78.0 Asymptomatic menopausal state; Z85.3 Personal history of malignant neoplasm of breast; Z80.3 Family history of malignant neoplasm of breast; Z98.890 Other specified postprocedural states; Z90.710 Acquired absence of both cervix and uterus
CPT/HCPCS: 77065; G0279; 77061

== ENCOUNTER → 2022-09-28 | Outpatient (CLI) | payer MEDICARE, BC ==
--- NOTE | 2022-09-28 14:17 | P.PN ---
Subjective Progress Note Date: 09/28/22 Principal diagnosis: Left breast mastectomy/malignancy approximately 30 years ago Tamica is an 81-year-old white female who presents for breast evaluation. Of importance is the fact that she underwent a left breast mastectomy approximately 32 years ago for a very small tumor. She states that she did not have any chemotherapy, radiation or hormonal therapy. She was told this was a breast cancer. She was 36 at the time, she did not have any genetic testing. The patient has routine screening mammograms performed on a regular basis. She had a mammogram performed of the right breast 07-26-22. This was BIRAD 2. The patient has not noted any masses lumps or nodules in her breast. She has no complaints of any nipple discharge or skin changes. She has no history of the recent infection or trauma to the breast. She has no pain in her breast. She did have a biopsy of the right breast many years ago which was benign. The patient drinks half cup of coffee per day. She does not smoke and is not exposed to secondhand smoke. She does like chocolate, which she eats daily. She does not take hormones or soy products. Family history: patient: thyroid cancer patient: breast cancer at 37 sister: of breast cancer at 62 Hormonal History: menarche: 14 , breast fed: no, age at : 23 menopause: late 40's BCP: 10 years hormones: none Past Surgical History 1. skin biopsy nose 2. thyroid cancer 1 lobe removed 3. gallbladder 4. PUD 5. hysterectomy took ovaries 6. mastectomy Medical History: 1. arthritis 2. Social History: smoke: stopped 40 years ago alcohol: noen drugs: none - Constitutional Constitutional: Denies chills, Denies fever - EENT Comment: glasses for reading Eyes: denies blurred vision, denies pain Ears: deny: decreased hearing, tinnitus Ears, nose, mouth and throat: Denies headache, Denies sore throat - Breasts Breasts: bilateral: as per HPI - Cardiovascular Cardiovascular: Reports high blood pressure - Respiratory Respiratory: Denies cough, Denies 7 - Gastrointestinal Comment: PUD status post surgery in past - Genitourinary (Female) Genitourinary: Denies dysuria, Denies hematuria - Menstruation Menstruation: Reports postmenopausal - Musculoskeletal Comment: arthritis - Integumentary Integumentary: Denies rash - Neurological Neurological: Denies numbness, Denies weakness - Psychiatric Psychiatric: Denies anxiety, Denies depression - Endocrine Endocrine: Denies fatigue, Denies weight change - Hematologic/Lymphatic Comment: none - Allergic/Immunologic Comment: shellfish, pineapple Allergic/Immunologic: Reports as per HPI Past Medical History Past Medical History: Cancer, Hyperlipidemia, Hypertension, Osteoarthritis (OA), Thyroid Disorder Additional Past Medical History / Comment(s): L breast cancer with mastectomy, thyroid cancer, History of Any Multi-Drug Resistant Organisms: None Reported Past Surgical History: Breast Surgery, Cholecystectomy, Hysterectomy Additional Past Surgical History / Comment(s): Partial thyroidectomy, EGD, 1/2 gastrectomy due to ulcers, L breast mastectomy. Past Anesthesia/Blood Transfusion Reactions: No Reported Reaction Past Psychological History: No Psychological Hx Reported Additional Psychological History / Comment(s): . Smoking Status: Former smoker Past Alcohol Use History: None Reported Additional Past Alcohol Use History / Comment(s): Pt smoked from [id number] SMOKED 1/-1/2 PPD Past Drug Use History: None Reported - Past Family History Father History Unknown: Yes Additional Family Medical History / Comment(s): Father when pt was 1 yrs old. Mother Family Medical History: Coronary Artery Disease (CAD), Osteoarthritis (OA), Thyroid Disorder Additional Family Medical History / Comment(s): Enlarged heart. Sister(s) Family Medical History: Cancer Additional Family Medical History / Comment(s): breast Objective - Constitutional General appearance: Present: cooperative - EENT Eyes: Present: EOMI ENT: Present: hearing grossly normal - Neck Neck: Present: normal ROM - Respiratory Respiratory: bilateral: CTA - Cardiovascular Heart sounds: normal: S1, S2 - Integumentary Integumentary: Present: normal turgor - Musculoskeletal Musculoskeletal Comment(s): uses a walker - Psychiatric Psychiatric: Present: A&O x's 3, appropriate affect, intact judgment & insight - Additional findings Additional findings: Breast Exam: BRA: large inspection: right breast grade 3 ptosis, left chest wall mastectomy incision well-healed Palpation: Right breast: Examination does not reveal any dominant masses or nodules of concern, fibrocystic changes Right axilla: No adenopathy of concern Left chest wall no evidence of any disease on palpation Left axilla: No adenopathy of concern Assessment and Plan Assessment: Impression: No evidence of any cancer in the left chest wall she had a mastectomy at the age of 36 and we are uncertain of the stage mastectomy was performed in [place] Right breast fibrocystic changes Plan: Right breast mammogram in 1 year with physician exam at that time CC: Dr. Agarwal
[2022-09-28 14:34] VITALS: BP 119/70; PULSE 79; RESP 17; TEMP 98.4
== END | disposition home or self-care (01) ==
LOC: WWCWWP 13:33
PROVIDERS: ATTEND Surgery
DX: Z53.9 Procedure and treatment not carried out, unspecified reason (principal)

== ENCOUNTER → 2023-08-01 | Outpatient (CLI) | payer MEDICARE, BC ==
--- NOTE | 2023-08-01 11:00 | MM ---
Reason for Exam: Hx of breast cancer, mastectomy. Last screening mammogram was performed 12 month(s) ago. Patient History: Menarche at age 14. First Full-Term at age 26. Left ovary removed at age 39. Right ovary removed at age 39. Hysterectomy at age 39. Postmenopausal. Breast cancer, left, age 36. Patient used Hormonal Contraceptives for 10 years. 1977, Mastectomy on the Left side. Benign Excisional Biopsy on the right side. Sister had breast cancer, age 60. Prior Study Comparison: 05/25/2020 Right Diagnostic Mammogram, [facility]. 07/24/2021 Right Diagnostic Mammogram, [facility]. 07/26/2022 Right MG 3D diag mammo w/cad RT, [facility]. Tissue Density: Right: There are scattered fibroglandular densities. Findings: Analyzed By CAD. Chronic nodularity central inner aspect of the right breast. No significant change from prior exams. Overall Assessment: Benign, BI-RAD 2 Management: Screening Mammogram of the right breast in 1 year. . Results were given to the patient verbally at the time of exam. Patient should continue monthly self-breast exams. A clinical breast exam by your physician is recommended on an annual basis. This exam should not preclude additional follow-up of suspicious palpable abnormalities. Electronically signed and approved by: Kamran Brady M.D. Radiologist
== END | disposition home or self-care (01) ==
LOC: RADMAMWWP 10:39
PROVIDERS: ATTEND Surgery
DX: R92.8 Other abnormal and inconclusive findings on diagnostic imaging of breast (principal); Z78.0 Asymptomatic menopausal state; Z85.3 Personal history of malignant neoplasm of breast; Z80.3 Family history of malignant neoplasm of breast
CPT/HCPCS: 77065; G0279; 77061

== ENCOUNTER → 2023-08-01 | Outpatient (CLI) | payer MEDICARE, BC | END | disposition home or self-care (01) | LOC: WWCWWP 10:42 | PROVIDERS: ATTEND Surgery | DX: Z53.9 Procedure and treatment not carried out, unspecified reason (principal) ==

== ENCOUNTER → 2024-09-03 | Outpatient (CLI) | payer MEDICARE, BC ==
--- NOTE | 2024-09-07 08:07 | MM ---
Reason for Exam: Screening (asymptomatic). Last mammogram was performed 1 year(s) and 1 month(s) ago. Patient History: Menarche at age 14. First Full-Term at age 26. Left ovary removed at age 39. Right ovary removed at age 39. Hysterectomy at age 39. Postmenopausal. Breast cancer, left, age 36. Patient used Hormonal Contraceptives for 10 years. 1977, Mastectomy on the Left side. Benign Excisional Biopsy on the right side. Sister had breast cancer, age 60. Prior Study Comparison: 07/24/2021 Right Diagnostic Mammogram, [facility]. 07/26/2022 Right MG 3D diag mammo w/cad RT, [facility]. 08/01/2023 Right MG 3D diag mammo w/cad RT, [facility]. Tissue Density: Right: There are scattered areas of fibroglandular density. Findings: Analyzed By CAD. Right breast: There is no suspicious group of microcalcifications or new suspicious mass. Overall Assessment: Negative, BI-RAD 1 Management: Screening Mammogram of both breasts in [address] [facility] will attempt to contact patient to return for supplemental views and ultrasound if indicated. Patient should continue monthly self-breast exams. A clinical breast exam by your physician is recommended on an annual basis. This exam should not preclude additional follow-up of suspicious palpable abnormalities. Note on Hilda scores and lifetime risk: 1. A Hilda score greater than 3% is considered moderate risk. If this is the case, consider specialist referral to assess eligibility for a risk reducing agent. 2. If overall lifetime risk for the development of breast cancer is 20% or higher, the patient may qualify for future screening with alternating mammogram and breast MRI. [facility], , 09/07/2024 8:04 AM. Electronically signed and approved by: Ronnie Josue DO
== END | disposition home or self-care (01) ==
LOC: RADMAMWWP 13:15
PROVIDERS: ATTEND Family Medicine
CPT/HCPCS: 77067

== ENCOUNTER → 2024-12-03 | Outpatient (CLI) | payer MEDICARE, BC ==
--- NOTE | 2024-12-03 14:45 | XR ---
EXAMINATION TYPE: XR lumbosacral spine 5V, XR knee complete 3 views bilateral, XR ankle complete 3 vi ews bilateral DATE OF EXAM: 12/03/2024 11:09 AM CLINICAL INDICATION: Female, 83 years old with history of M54.9 chronic back pain, , swollen ankles a nd bilateral knee osteoarthritis FINDINGS: Lumbar spine: Cholecystectomy clips. Small T12 ribs. Moderate facet arthropathy especially mid to lower lumbar spin e. Trace grade 1 anterolisthesis L3-L4. Mild endplate spondylosis is mild degenerative disc disease t hroughout. Accentuated lumbar lordosis. Vertebral body heights are preserved. Bilateral knees: There is pronounced anterior soft tissue swelling. Extensor mechanisms appear intact. Trace joint eff usion on the left. Otherwise, no acute fracture, subluxation, or dislocation is seen. Bilateral ankles: Prominent medial sided soft tissue swelling on both sides. Bony irregularity below the medial malleol us on the right suggesting sequela of prior injury. Ankle mortise views appear congruent with preserv ation of the distal tibiofibular overlap. Talar domes are intact. Small posterior and plantar heel sp urs noted. No acute fracture, subluxation, dislocation. IMPRESSION: 1. Lumbar spine: Mild multilevel degenerative disc disease. Moderate facet arthropathy. Accentuated l umbar lordosis with trace grade 1 anterolisthesis L3-L4. No vertebral compression collapse. 2. Knees: Pronounced anterior soft tissue swelling. Unclear if this relates to a soft tissue abnormal ity, bursitis, or patient's body habitus. Further clinical correlation recommended. Trace joint effus ion on the left. Otherwise, no acute osseous abnormality seen. 3. Ankles: Pronounced medial sided soft tissue swelling, left more so than the right. Again, unclear if this relates to underlying soft tissue abnormality or patient body habitus. Sequela of old injury below the medial malleolus on the right. No acute osseous abnormality seen. [facility], , 12/03/2024 2:42 PM
== END | disposition home or self-care (01) ==
LOC: RADXRMAIN 10:32
PROVIDERS: ATTEND Internal Medicine
DX: M25.472 Effusion, left ankle (principal); M17.0 Bilateral primary osteoarthritis of knee; M51.26 Other intervertebral disc displacement, lumbar region; M47.816 Spondylosis without myelopathy or radiculopathy, lumbar region; M43.16 Spondylolisthesis, lumbar region
CPT/HCPCS: 72110

== ENCOUNTER → 2025-01-21 | Outpatient (CLI) | payer MEDICARE, BC ==
[2025-01-21 13:03] VITALS: BP 173/67; PULSE 78; RESP 16; TEMP 97.1
--- NOTE | 2025-01-21 15:02 | P.PAINPG ---
PQRS Measure Charge Sheet Comment: HISTORY OF PRESENT ILLNESS: A 84 yr old female w history of Thyroid CA, L Breast CA as a referral from Dr Marcos presents today w severe and chronic generalized pain for evaluation. Pt states pain level is provoked at 8 /10 in intensity, constant, generalized throughout the spine and LEs, throbbing in character without shooting pain . Pain has no provocation. Pain is alleviated by medications, heat, use of a seated walker for ambulatory assistance, repositioning and rest . PMH: OA, L Breast CA, Hyperlipidemia, HTN,G GERD, Hypothyroidism s/p Thyroid CA w Thyroidectomy PSH: L Breast Masectomy, Thyroidectomy, Half Gastrectomy, Cholecystectomy, Hysterectomy SH: Former tobacco user, No ETOH abuse, No illicit drug use FH: Fa- when she was 1. Mo- CAD. Sis- Breast CA All: See list Meds: See list incl Oxycodone REVIEW OF ORGAN SYSTEMS: CONSTITUTIONAL: No fevers or chills. No recent weight loss. NEUROLOGICAL: + numbness and tingling along the distal extremities. No seizure disorders or headaches. MUSCULOSKELETAL: + pain PSYCHIATRIC: Denies current depression or suicidal thoughts. Physical Examinations : Constitutional : Cooperative , not in acute distress . Neurologic : Cranial nerve II to XII intact. No focal neurological deficits. Psychiatric : alert & oriented x 3. Matching mood & appropriate affect. Judgment & insight intact. Musculoskeletal : Cervical Spine Motor strength in the deltoid and biceps: Normal right side. Normal Left side Motor strength biceps and the wrist extensors: Normal right side . Normal left side Motor strength in the triceps muscle: Normal right side. Normal left side Deep tendon reflexes: Normal at the biceps. Normal at Brachioradialis. Normal at triceps Vertebral body tenderness to deep palpation over Cervical facet loading test: positive bilaterally Spurling test: positive bilaterally Neck distraction test: positive bilaterally Rakesh sign: positive bilaterally Lumbar spine Motor strength lower extremities ,thigh and legs 5/5 Right side , 5/5 Left side Deep tendon reflexes : Normal Knee Jerk. Normal Ankle Jerk Vertebral body tenderness over Baldwin Test positive Lumbar facet Loading Test: positive Right / positive Left Range of motion of the lumbar spine Flexion 30 degrees, extension 10 degrees Straight Leg Raise test: Left/ Right positive at degrees Chema test: positive right / positive left. Severe tenderness over the Sacroiliac joint on the Right / Left sides Gaenslen test: positive bilaterally Seated flexion test: positive bilaterally. Sacral spine : Severe tenderness over the Sacroiliac joint: right side / left side Range of motion: Flexion of the lumbar spine <60 degrees Range of motion: Extension of the lumbar spine <20 degrees Gaenslen's Test positive Chema test: positive right side / lef t side Thigh Thrust Test Sacral Thrust Test Assessment/ Plan : Chronic Pain Syndrome Recommendation of medication management. Percocet 10/325mg #60 w 1 RF. Use, side effects, adverse reactions, safe storage discussed. Opiate/ narcotic agreement signed 01/21/25. All questions answered. I have spent greater than 30 minutes on patient care today. Dr Wilson was available by phone for the evaluation of this patient. The time was used to review the medical records including relevant urine studies and Prescription hi story (MAPs), review of the available imaging, evaluation and examination of the patient, coordination of care with the medical staff and if applicable referring physicians, as well as creation of the medical record - Pain Location Bilateral Lower Back Non-Pharmacological Interventions: Heat, Inactivity, Massage, Physical Therapy, Position/Reposition Pharmacological Interventions: PRN Medication, Scheduled Medication PQRS Narrative: Smoking Status Former smoker Home Medications: Ambulatory Orders Metoprolol Tartrate [Lopressor] 50 mg PO BID 10/18/14 Levothyroxine Sodium [Synthroid] 50 mcg PO QAM 12/11/15 Atorvastatin [Lipitor] 5 mg PO QAM 08/18/19 Losartan Potassium [Cozaar] 100 mg PO DAILY 01/21/25 oxyCODONE-APAP 10-325MG [Percocet 10-325 mg] 1 tab PO BID PRN 30 Days #60 tab 01/21/25 oxyCODONE-APAP 10-325MG [Percocet 10-325 mg] 1 tab PO BID PRN 30 Days #60 tab 01/21/25 Controlled Substance Measures - Controlled Substance Measures Is patient prescribed a controlled substance at discharge?: Yes When asked, does pt state using other controlled substances?: No If prescribed controlled substance>3 days was MAPS reviewed?: Yes If Rx opioid, was Start Talking consent form obtained?: Yes Was information provided regarding opioid addiction?: Yes
== END ==
LOC: PNWHC3 12:36
PROVIDERS: ATTEND Specialist
DX: G89.4 Chronic pain syndrome (principal); Z87.891 Personal history of nicotine dependence; Z91.041 Radiographic dye allergy status; Z91.013 Allergy to seafood; Z91.018 Allergy to other foods
CPT/HCPCS: 99211

== ENCOUNTER 2025-01-29 09:15 | Emergency (ER) | payer MEDICARE, BC ==
[2025-01-29] MEDS: ASPIRIN 81 MG PO STA (09:41)
[2025-01-29 09:53] LABS: Basophils # (A) 0.1 k/uL (0-0.2); Basophils % (A) 1 %; Eosinophils # (A) 0.1 k/uL (0-0.7); Eosinophils % (A) 1 %; HCT 44.9 % (34.0-46.0); HGB 14.3 gm/dL (11.4-16.0); Lymphocytes # (A) 2.8 k/uL (1.0-4.8); Lymphocytes % (A) 31 %; MCH 29.3 pg (25.0-35.0); MCV 91.7 fL (80.0-100.0); Mean Platelet Volume 7.6; Monocytes # (A) 0.5 k/uL (0-1.0); Monocytes % (A) 6 %; Neutrophils # (A) 5.6 k/uL (1.3-7.7); Neutrophils % (A) 61 %; Platelet Count 291 k/uL (150-450); RBC 4.89 m/uL (3.80-5.40); RDW 12.1 % (11.5-15.5); WBC 9.2 k/uL (3.8-10.6)
--- NOTE | 2025-01-29 10:01 | ED ---
Chest Pain HPI - General Chief Complaint: Chest Pain Stated Complaint: Chest pain Time Seen by Provider: 01/29/25 09:26 Source: patient, RN notes reviewed Mode of arrival: ambulatory Limitations: no limitations - History of Present Illness Initial Comments: This is an 84-year-old female who presents to the emergency department for chest pain. Patient states that she had an episode of chest pain yesterday, but is unsure what she was doing or how long it lasted. It was left-sided and felt like a sharpness. This then resolved on its own. This morning she was getting ready for the day and the pain returned. She again is unsure how long it lasted, but states that this time she started to feel nauseous. Pain has since resolved. Denies any history of heart attacks or stents. Denies any shortness of breath associated with this. She did not have any radiation of pain. States that movement and changing positions also seemed to make the pain worse. However, she did not notice any change with exertion. MD Complaint: chest pain - Related Data Home Medications Medication Instructions Recorded Confirmed Metoprolol Tartrate [Lopressor] 50 mg PO HS 10/18/14 01/29/25 Levothyroxine Sodium [Synthroid] 50 mcg PO QAM 12/11/15 01/29/25 Atorvastatin [Lipitor] 10 mg PO DAILY 08/18/19 01/29/25 Losartan Potassium [Cozaar] 100 mg PO DAILY 01/21/25 01/29/25 oxyCODONE-APAP 10-325MG [Percocet 0.5 tab PO Q6H 01/29/25 01/29/25 10-325 mg] Allergies Allergy/AdvReac Type Severity Reaction Status Date / Time Iodinated Contrast Media Allergy Severe Rash/Hives Verified 01/29/25 11:32 [Iodinated Contrast Media - IV Dye] iodine Allergy Rash/Hives Verified 01/29/25 11:32 pineapple AdvReac SORE IN Verified 01/29/25 11:32 MOUTH shellfish derived AdvReac SEVERE Verified 01/29/25 11:32 VOMITING Review of Systems ROS Statement: Those systems with pertinent positive or pertinent negative responses have been documented in the HPI. ROS Other: All systems not noted in ROS Statement are negative. Past Medical History Past Medical History: Cancer, Hyperlipidemia, Hypertension, Osteoarthritis (OA), Thyroid Disorder Additional Past Medical History / Comment(s): L breast cancer with mastectomy, thyroid cancer, History of Any Multi-Drug Resistant Organisms: None Reported Past Surgical History: Breast Surgery, Cholecystectomy, Hysterectomy Additional Past Surgical History / Comment(s): Partial thyroidectomy, EGD, 1/2 gastrectomy due to ulcers, L breast mastectomy. Past Anesthesia/Blood Transfusion Reactions: No Reported Reaction Past Psychological History: No Psychological Hx Reported Smoking Status: Never smoker Past Alcohol Use History: None Reported Past Drug Use History: None Reported - Past Family History Father History Unknown: Yes Additional Family Medical History / Comment(s): Father when pt was 1 yrs old. Mother Additional Family Medical History / Comment(s): Enlarged heart. Sister(s) Family Medical History: Cancer Additional Family Medical History / Comment(s): breast General Exam Limitations: no limitations General appearance: alert, in no apparent distress Head exam: Present: atraumatic, normocephalic, normal inspection Respiratory exam: Present: normal lung sounds bilaterally. Absent: respiratory distress, wheezes, rales, rhonchi, stridor Cardiovascular Exam: Present: normal rhythm, tachycardia GI/Abdominal exam: Present: soft, normal bowel sounds. Absent: distended, tenderness, guarding, rebound, rigid Neurological exam: Present: alert, oriented X3, CN II-XII intact Psychiatric exam: Present: normal affect, normal mood Skin exam: Present: warm, dry, intact, normal color. Absent: rash Course Vital Signs 01/29/25 01/29/25 01/29/25 09:23 10:43 13:15 Temperature 98.4 F 98.7 F Pulse Rate 108 H 64 61 Respiratory 20 20 16 Rate Blood Pressure 151/77 156/69 174/86 O2 Sat by Pulse 99 98 97 Oximetry 01/29/25 16:05 Temperature Pulse Rate 71 Respiratory 20 Rate Blood Pressure 207/77 O2 Sat by Pulse 98 Oximetry Chest Pain MDM - MDM This is an 84-year-old female who presents to the emergency department for chest pain. Was pt. sent in by a medical professional or institution? @ -No Did you speak to anyone other than the patient for history? @ -No Did you review nursing and triage notes? @ -Yes, and I agree, it is accurate with regards to the patient's symptoms. Were old charts reviewed? @ -No Differential Diagnosis? @ -Differential Chest Pain: Stable Angina, Unstable Angina, STEMI, NSTEMI Aortic Dissection, Pneumothorax, Musculoskeletal, Esophageal Spasm GERD, Cholecystitis, Pancreatitis, Zoster, this is not meant to be an all-inclusive list. EKG interpreted by me (3pts min.)? @ -EKG interpreted by me demonstrating the following: Sinus tachycardia. Ventricular rate 101 bpm, IN interval 208 ms, QRS duration 105 ms, QTc 387 ms. X-rays interpreted by me (1pt min.)? @ -Chest x-ray obtained. My interpretation identifies cardiomegaly. CT interpreted by me (1pt min.)? @ -CTA of the chest obtained. My interpretation identifies no pulmonary embolus. U/S interpreted by me (1pt. min.)? @ -Not obtained What testing was considered but not performed? (CT, X-rays, U/S, labs)? Why? @ -None What meds were considered but not given? Why? @ -None Did you discuss the management of the patient with other professionals? @ -No Did you reconcile home meds? @ -No Was smoking cessation discussed for >3mins.? @ -No Was critical care preformed (if so, how long)? @ -No Were there social determinants of health that impacted care today? How? (Homelessness, low income, unemployed, alcoholism, drug addiction, transportation, low edu. Level, literacy, decrease access to med. care, fpc, rehab)? @ -No Was there de-escalation of care discussed even if they declined? (Discuss DNR or withdrawal of care, Hospice)? @ -No What co-morbidities impacted this encounter? (DM, HTN, Smoking, COPD, CAD, Cancer, CVA, Hep., AIDS, mental health diagnosis, sleep apnea, morbid obesity)? @ -HLD, HTN Was patient admitted / discharged? @ -Discharged. Lab work demonstrates an elevated D-dimer of 1.78. Initial troponin negative. Chest x-ray demonstrated concern of a left basilar acute infiltrate and/or atelectasis. CTA of the chest obtained given her symptoms with elevated D-dimer. No evidence of a pulmonary embolus was identified and this infiltrate was not redemonstrated. When discussing disposition, I did initially offer admission for cardiac observation. However, she requested we repeat a troponin instead. While this was still negative, it was higher at 0.022 and the specimen was not hemolyzed. A third troponin was then obtained and this remained flat without any change. I did again offer and encourage admission. Patient again refused and states that she would like to go home. Her pain was more so atypical in that it was sharp and worse with certain positions. She was given very strict return parameters and advised to have close follow-up with her primary care provider. Patient discharged home in stable condition. Case discussed with ED attending Dr. Gay. Return precautions reviewed in depth, the patient is instructed to return to the emergency department with any new, worsening, or concerning symptoms. Patient verbalized understanding. Undiagnosed new problem with uncertain prognosis? @ -None Drug Therapy requiring intensive monitoring for toxicity (Heparin, Nitro, Insulin, Cardizem)? @ -None Were any procedures done? @ -None Diagnosis/symptom? @ -Chest pain Acute, or Chronic, or Acute on Chronic? @ -Acute Uncomplicated (without systemic symptoms) or Complicated (systemic symptoms)? @ -Uncomplicated Side effects of treatment? @ -None Exacerbation, Progression, or Severe Exacerbation] @ -Not applicable Poses a threat to life or bodily function? @ -This will depend on the cause Disposition Clinical Impression: Chest pain Disposition: HOME SELF-CARE Instructions (If sedation given, give patient instructions): Chest Pain (ED) Additional Instructions: Return to the emergency department with any new, worsening, or concerning symptoms. Follow up with your primary care provider in 1-2 days. Is patient prescribed a controlled substance at d/c from ED?: No Referrals: Karen Marcos MD [Primary Care Provider] - 1-2 days Time of Disposition: 15:50
--- NOTE | 2025-01-29 10:07 | XR ---
EXAMINATION TYPE: XR chest 2V DATE OF EXAM: 01/29/2025 9:55 AM COMPARISON: Chest x-ray from April 04, 2020 CLINICAL INDICATION: Female, 84 years old with history of Chest Pain, TECHNIQUE: Frontal and lateral views of the chest are obtained. FINDINGS: There is low lung volumes with left basilar increased opacity. Cardiomegaly is redemonstra jeromy. Overlying EKG leads and overlying bra strap on current study The osseous structures are intact . IMPRESSION: Low lung volumes and cardiomegaly with left basilar acute infiltrate and/or atelectasis. [facility], , 01/29/2025 10:05 AM
[2025-01-29 10:20] LABS: INR 0.9 (<1.2); Prothrombin Time 10.5 sec (10.0-12.5)
[2025-01-29 10:32] LABS: Partial Thromboplastin Time 21.7 sec (22.0-30.0)
[2025-01-29 10:34] LABS: ALT 18 U/L (4-34); AST 26 U/L (14-36); African American GFR (CKD) 87 (>60 ml/min/1.73 sqM); Albumin 5.1 g/dL (3.5-5.0); Alkaline Phosphatase 57 U/L (38-126); Anion Gap 16 mmol/L; Blood Urea Nitrogen 19 mg/dL (7-17); Calcium 10.1 mg/dL (8.4-10.2); Carbon Dioxide 22 mmol/L (22-30); Chloride 100 mmol/L (98-107); Glucose 235 mg/dL (74-99); Magnesium 1.7 mg/dL (1.6-2.3); Non-African American GFR(CKD) 76 (>60 ml/min/1.73 sqM); Potassium 4.1 mmol/L (3.5-5.1); Sodium 138 mmol/L (137-145); Total Bilirubin 0.8 mg/dL (0.2-1.3); Total Protein 8.3 g/dL (6.3-8.2)
[2025-01-29] MEDS: FAMOTIDINE 20 MG/2 ML VIAL IV STA (10:45)
[2025-01-29] MEDS: diphenhydrAMINE 50 MG/ML 1 ML VIAL IVP STA (10:48)
[2025-01-29] MEDS: methylPREDNISolone SOD SUCCI 125 MG/2 ML VIAL IV STA (10:51)
--- NOTE | 2025-01-29 11:50 | CT ---
EXAMINATION TYPE: CT chest angio for PE CT DLP: 511.4 mGycm, Automated exposure control for dose reduction was used. DATE OF EXAM: 01/29/2025 11:33 AM COMPARISON: Chest radiograph from same day. CTA chest 08/18/2019, 03/19/2017. CLINICAL INDICATION:Female, 84 years old with history of Chest pain, elevated d-dimer; Chest pain, el evated dimer TECHNIQUE/CONTRAST: CTA scan of the thorax is performed with IV Contrast, patient injected with 100 ml mL of Isovue 370, pulmonary embolism protocol. MIP images are created and reviewed. FINDINGS: Pulmonary Artery: There is no evidence for a filling defect within the pulmonary vasculature to sugge st acute pulmonary embolism. The pulmonary artery is of normal size. Lungs/Pleura: No evidence of focal consolidation, pleural effusion or pneumothorax. Minimal bibasilar subsegmental atelectasis. No suspicious pulmonary nodule or mass. Airway: Large airways are patent. Heart: Mildly enlarged. Mild coronary artery calcifications present. Vasculature: No evidence of aortic aneurysm. Mild atherosclerotic calcification of the aorta and its branches. Mediastinum: No evidence of adenopathy. Calcified subcarinal lymph node. Musculoskeletal: No acute osseous abnormalities. Multilevel anterior osteophytosis of the thoracic sp ine. Soft Tissues: Unremarkable. Lower neck: No significant findings. Upper Abdomen: Gallbladder is surgically absent. Postsurgical changes at the GE junction from prior a pparent with additional postsurgical changes involving the distal stomach. IMPRESSION: No evidence of pulmonary embolism or acute thoracic process. [facility], , 01/29/2025 11:48 AM
[2025-01-29] MEDS: cloNIDine HCL 0.2 MG TAB PO STA (16:11)
[2025-01-29 16:14] VITALS: RESP 20
[2025-01-29 16:56] VITALS: BP 155/69; PULSE 64; TEMP 98.6
== END 2025-01-29 16:55 | disposition home or self-care (01) ==
LOC: EC 09:15
DX: I51.7 Cardiomegaly (principal); R79.1 Abnormal coagulation profile; R00.0 Tachycardia, unspecified
CPT/HCPCS: 99285; 96374; 96375 ×2; 36415; 93005; 85379; 80053; 83735; 84484; 85025; 85610; 85730; 71046; 71275; J1200; J3490; Q9967; J2919

== ENCOUNTER → 2025-03-15 | Outpatient (CLI) | payer MEDICARE, BC ==
[2025-03-15 14:11] VITALS: BP 200/97; PULSE 76; RESP 16
--- NOTE | 2025-03-15 14:33 | P.PAINPG ---
PQRS Measure Charge Sheet Comment: HISTORY OF PRESENT ILLNESS: A 84 yr old female w history of Thyroid CA, L Breast CA presents today w severe and chronic generalized pain for medication refills. Pt states pain level is provoked at 9 /10 in intensity, constant, generalized throughout the spine and LEs, dull in character without shooting pain . Pain has no provocation. Pain is alleviated by medications, heat, use of a seated walker for ambulatory assistance, repositioning and rest . Interventional procedures include Medications include Percocet 10/325mg #60 REVIEW OF ORGAN SYSTEMS: CONSTITUTIONAL: No fevers or chills. No recent weight loss. NEUROLOGICAL: + numbness and tingling along the distal extremities. No seizure disorders or headaches. MUSCULOSKELETAL: + pain PSYCHIATRIC: Denies current depression or suicidal thoughts. Physical Examinations : Constitutional : Cooperative , not in acute distress . Neurologic : Cranial nerve II to XII intact. No focal neurological deficits. Psychiatric : alert & oriented x 3. Matching mood & appropriate affect. Judgment & insight intact. Musculoskeletal : Cervical Spine Motor strength in the deltoid and biceps: Normal right side. Normal Left side Motor strength biceps and the wrist extensors: Normal right side . Normal left side Motor strength in the triceps muscle: Normal right side. Normal left side Deep tendon reflexes: Normal at the biceps. Normal at Brachioradialis. Normal at triceps Vertebral body tenderness to deep palpation over Cervical facet loading test: positive bilaterally Spurling test: positive bilaterally Neck distraction test: positive bilaterally Rakesh sign: positive bilaterally Lumbar spine Motor strength lower extremities ,thigh and legs 5/5 Right side , 5/5 Left side Deep tendon reflexes : Normal Knee Jerk. Normal Ankle Jerk Vertebral body tenderness over Baldwin Test positive Lumbar facet Loading Test: positive Right / positive Left Range of motion of the lumbar spine Flexion 30 degrees, extension 10 degrees Straight Leg Raise test: Left/ Right positive at degrees Chema test: positive right / positive left. Severe tenderness over the Sacroiliac joint on the Right / Left sides Gaenslen test: positive bilaterally Seated flexion test: positive bilaterally. Sacral spine : Severe tenderness over the Sacroiliac joint: right side / left side Range of motion: Flexion of the lumbar spine <60 degrees Range of motion: Extension of the lumbar spine <20 degrees Gaenslen's Test positive Chema test: positive right side / left side Thigh Thrust Test Sacral Thrust Test Assessment/ Plan : Chronic Pain Syndrome Recommendation of medication management. Percocet 10/325mg #60, Ibu 600mg #90 w 1 RF. Use, side effects, adverse reactions, safe storage discussed. Opiate/ narcotic agreement signed 01/21/25. BP is elevated, rechecked within 30 min and still elevated. Pt states she's had this occur multiple times and she follows up w [facility]. Urged compliance to go to ER for hypertensive emergency. Denies visual changes, COTE, weakness, CP. All questions answered. I have spent greater than 30 minutes on patient care today. Dr Wilson was available by phone for the evaluation of this patient. The time was used to review the medical records including relevant urine studies and Prescription history (MAPs), review of the available imaging, evaluation and examination of the patient, coordination of care with the medical staff and if applicable referring physicians, as well as creation of the medical record - Pain Location Bilateral Lower Back Pharmacological Interventions: PRN Medication, Scheduled Medication, Topical Medication PQRS Narrative: Smoking Status Former smoker Hx Alcohol Use (MH) No Home Medications: Ambulatory Orders Metoprolol Tartrate [Lopressor] 50 mg PO HS 10/18/14 Levothyroxine Sodium [Synthroid] 50 mcg PO QAM 12/11/15 Atorvastatin [Lipitor] 10 mg PO DAILY 08/18/19 Losartan Potassium [Cozaar] 100 mg PO DAILY 01/21/25 Ibuprofen 600 mg PO Q8H 30 Days #90 tab 03/15/25 oxyCODONE-APAP 10-325MG [Percocet 10-325 mg] 0.5 tab PO Q6H PRN 30 Days #60 tab 03/15/25 oxyCODONE-APAP 10-325MG [Percocet 10-325 mg] 1 tab PO BID PRN 30 Days #60 tab 03/15/25 Controlled Substance Measures - Controlled Substance Measures Is patient prescribed a controlled substance at discharge?: Yes When asked, does pt state using other controlled substances?: No If prescribed controlled substance>3 days was MAPS reviewed?: Yes
== END ==
LOC: PNWHC3 13:44
PROVIDERS: ATTEND Specialist
DX: G89.4 Chronic pain syndrome (principal); Z85.850 Personal history of malignant neoplasm of thyroid; Z85.3 Personal history of malignant neoplasm of breast; Z91.013 Allergy to seafood; Z91.040 Latex allergy status; Z91.018 Allergy to other foods; Z87.891 Personal history of nicotine dependence
CPT/HCPCS: 99211

== ENCOUNTER → 2025-05-17 | Outpatient (CLI) | payer MEDICARE, BC ==
[2025-05-17 14:12] VITALS: BP 137/79; PULSE 83; RESP 16
--- NOTE | 2025-05-17 16:04 | P.PAINPG ---
Objective - Vital Signs Vital signs: Vital Signs Temp Pulse 83 05/17/25 14:04 Resp 16 05/17/25 14:04 BP 137/79 05/17/25 14:04 Pulse Ox 96 05/17/25 14:04 FiO2 Intake & Output 05/16/25 05/17/25 05/17/25 18:59 06:59 18:59 Weight 104.326 kg PQRS Measure Charge Sheet Mode of Arrival: Ambulatory Comment: HISTORY OF PRESENT ILLNESS: A 84 yr old female w history of Thyroid CA, L Breast CA presents today w severe and chronic generalized pain for medication refills. Pt states pain level is provoked at 8-9 /10 in intensity, constant, generalized throughout the spine and LEs, dull in character without shooting pain . Pain has no provocation. Pain is alleviated by medications, heat, use of a seated walker for ambulatory assistance, repositioning and rest . Interventional procedures include Medications include Percocet 10/325mg #90, Ibu 800mg #90 REVIEW OF ORGAN SYSTEMS: CONSTITUTIONAL: No fevers or chills. No recent weight loss. NEUROLOGICAL: + numbness and tingling along the distal extremities. No seizure disorders or headaches. MUSCULOSKELETAL: + pain PSYCHIATRIC: Denies current depression or suicidal thoughts. Physical Examinations : Constitutional : Cooperative , not in acute distress . Neurologic : Cranial nerve II to XII intact. No focal neurological deficits. Psychiatric : alert & oriented x 3. Matching mood & appropriate affect. Judgment & insight intact. Musculoskeletal : Cervical Spine Motor strength in the deltoid and biceps: Normal right side. Normal Left side Motor strength biceps and the wrist extensors: Normal right side . Normal left side Motor strength in the triceps muscle: Normal right side. Normal left side Deep tendon reflexes: Normal at the biceps. Normal at Brachioradialis. Normal at triceps Vertebral body tenderness to deep palpation over Cervical facet loading test: positive bilaterally Spurling test: positive bilaterally Neck distraction test: positive bilaterally Rakesh sign: positive bilaterally Lumbar spine +R knee diffuse TTP Motor strength lower extremities ,thigh and legs 5/5 Right side , 5/5 Left side Deep tendon reflexes : Normal Knee Jerk. Normal Ankle Jerk Vertebral body tenderness over Baldwin Test positive Lumbar facet Loading Test: positive Right / positive Left Range of motion of the lumbar spine Flexion 30 degrees, extension 10 degrees Straight Leg Raise test: Left/ Right positive at degrees Chema test: positive right / positive left. Severe tenderness over the Sacroiliac joint on the Right / Left sides Gaenslen test: positive bilaterally Seated flexion test: positive bilaterally. Sacral spine : Severe tenderness over the Sacroiliac joint: right side / left side Range of motion: Flexion of the lumbar spine <60 degrees Range of motion: Extension of the lumbar spine <20 degrees Gaenslen's Test positive Chema test: positive right side / left side Thigh Thrust Test Sacral Thrust Test Assessment/ Plan : Chronic Pain Syndrome, R Knee DJD Recommendation of medication management. Percocet 10/325mg #90 w RF. Has ample supply of Ibu 800mg #90. Use, side effects, adverse reactions, safe storage discussed. Opiate/ narcotic agreement signed 05/17/25. All questions answered. I have spent greater than 30 minutes on patient care today. Dr Wilson was available by phone for the evaluation of this patient. The time was used to review the medical records including relevant urine studies and Prescription h istory (MAPs), review of the available imaging, evaluation and examination of the patient, coordination of care with the medical staff and if applicable referring physicians, as well as creation of the medical record - Pain Location Right Knee Non-Pharmacological Interventions: Heat Pharmacological Interventions: Medication PQRS Narrative: Smoking Status Former smoker Blood Pressure 137/79 Pain Intensity [Right Knee] 10 Scale Used Numeric (1 - 10) Hx Alcohol Use (MH) No Home Medications: Ambulatory Orders Metoprolol Tartrate [Lopressor] 50 mg PO HS 10/18/14 Levothyroxine Sodium [Synthroid] 50 mcg PO QAM 12/11/15 Atorvastatin [Lipitor] 10 mg PO DAILY 08/18/19 Losartan Potassium [Cozaar] 100 mg PO DAILY 01/21/25 Ibuprofen 600 mg PO Q8H 30 Days #90 tab 03/15/25 oxyCODONE-APAP 10-325MG [Percocet 10-325 mg] 0.5 tab PO TID PRN 30 Days #90 tab 05/17/25 oxyCODONE-APAP 10-325MG [Percocet 10-325 mg] 1 tab PO TID PRN 30 Days #90 tab 05/17/25 Controlled Substance Measures - Controlled Substance Measures Is patient prescribed a controlled substance at discharge?: Yes When asked, does pt state using other controlled substances?: No If prescribed controlled substance>3 days was MAPS reviewed?: Yes If Rx opioid, was Start Talking consent form obtained?: Yes Was information provided regarding opioid addiction?: Yes
== END ==
LOC: PNWHC3 13:55
PROVIDERS: ATTEND Specialist
DX: M17.11 Unilateral primary osteoarthritis, right knee (principal); G89.4 Chronic pain syndrome; Z87.891 Personal history of nicotine dependence; Z88.5 Allergy status to narcotic agent; Z91.041 Radiographic dye allergy status; Z91.040 Latex allergy status; Z91.013 Allergy to seafood
CPT/HCPCS: 99212